=== PATIENT | female | born 1970 | race Caucasian/White ===

== ENCOUNTER 2020-01-04 10:12 | Inpatient (IN) | payer OTHER, SELFPAY ==
[2019-12-28 12:55] VITALS: BMI 33.1
[2020-01-04] VITALS (14 sets, daily range): BP systolic 121–172; BP diastolic 59–96; PULSE 53–78; RESP 7–23; TEMP 35.7–36.8; O2SAT 73–100; BMI 33.1
--- NOTE | 2020-01-04 | DI.RAD.S_ITS ---
PROCEDURE: XR LUMBAR SPINE 2-3V INDICATIONS: L5-S1 TLIF TECHNIQUE: 2 intraoperative views of the lumbar spine were acquired. COMPARISON: [facility], CT, CT CHEST ABDOMEN PELVIS WITH CONTRAST, 06/17/2019, 15:26. FINDINGS: Pedicle screws at L5-S1 with intervertebral body spacer. Hardware is in expected location. IMPRESSION: Intraoperative guidance for L5-S1 TLIF. Dictated by: Home Anderson M.D. on 01/04/2020 at 14:12 Approved by: Home Anderson M.D. on 01/04/2020 at 14:14
[2020-01-04] MEDS: LACTATED RINGERS 1,000 ML 42 ML IV ×2 (10:50→13:05)
[2020-01-04] MEDS: ACETAMINOPHEN 325 MG TABLET 975 MG PO (10:54)
[2020-01-04] MEDS: GABAPENTIN 300 MG CAPSULE PO (10:54)
--- NOTE | 2020-01-04 11:21 | PM.PREOP ---
Pre-operative Note COVID-19 COVID-19 status: Negative Result date/Date tested (Pos, Neg/Pending): 01/02/20 Interval Note History & Physical reviewed/Exam performed by Physician: Yes Changes to H&P: No
[2020-01-04] MEDS: CLINDAMYCIN 600 MG/50 ML PIGGYBACK 50 MG IV (11:52)
--- NOTE | 2020-01-04 12:16 | SUR.OPER ---
Prone on spine table, head in foam head support, padded chest and pelvic supports, gel pad at knees, lower legs supported by pillows; nipples, genitalia and toes free of pressure, arms secured on foam padded arm boards at <90 degrees abduction. Tape over blanket at thigh secured to table.
[2020-01-04] MEDS: BUPIVACAINE LIPOSOME 266 MG/20 ML VIAL INJ (12:37)
[2020-01-04] MEDS: BUPIVACAINE 0.25% W/ EPI 30 ML VIAL INJ (12:38)
[2020-01-04] MEDS: OXYCODONE IR 5 MG TABLET 10 MG PO ×4 (12:50→20:41)
--- NOTE | 2020-01-04 12:52 | SUR.OPER ---
GLASSES AND DENTURES IN LABELED BAG/CONTAINER TO PACU WITH PATIENT
--- NOTE | 2020-01-04 14:04 | PM.OP.1 ---
Operative Date/Time/Diagnoses Date of procedure: 01/04/20 Time of procedure: 12:04 Pre-op diagnosis: 1. L4-5, L5-S1 spinal stenosis 2. L4-5, L5-S1 spondylosis with radiculopathy Post-op diagnosis: same Procedure & Clinicians Procedure: 1. L5-S1 Postero-lateral and posterior interbody fusion 2. L5-S1 interbody cage placement. 3. L5-S1 decompressive laminectomy with bilateral facetecomies 4. L4-5 hemilaminectomy for decompression of lateral recess 5. L5-S1 Posterior segmental instrumentation 6. Meridian of bone marrow from iliac crest 7. Utilization of microsurgical technique and operating microscope Same procedure as scheduled: Yes Indications: Patient has been having chronic back pain and worsening lumbar radiculopathy. Patient failed multiple conservative management with worsening pain weakness and numbness in her lower extremity. Patient has been having difficulty performing activity of daily living. After discussing risks benefits of treatment options, patient elected proceed with surgery. Surgeon: Diana Denton Practice Performance Manager: Lyubov Hoover Click Yes if Unassisted: No Anesthesia Type: General Operative Notes Closure Type: primary Specimen(s): none sent Prosthetic devices, grafts, tissues, transplants, or devices: Globus revolve screws, Rise cage Estimated Blood Loss (mL): 50 Blood products transfused: none Procedure in detail: Patient was seen in the preoperative area. Risks and benefits of the surgery was discussed with the patient. Informed consent was obtained from the patient and placed in the chart. Surgical site was marked. Patient was taken to the operative room. General anesthesia was administered. Prophylactic antibiotic was given to the patient less than 30 min before the incision was made. Patient was placed into a prone position on the Triston table. Patient's back was then prepped and draped in the sterile fashion. Time-out was performed at this time. Using AP and lateral C-arm imaging the interval between L4-5 L5-S1 was identified and marked on patient's back. A 2 inch incision 2 in from midline was made on the left side first. The fascia was incised in line with skin incision. Globus MARS retractors was placed inside the incision and docked onto the L5 lamina. Using microsurgical technique and operating microscope, a L5 laminectomy and L5-S1 facetectomy was performed using a Kerrison rongeur. Patient was found have severe neural foramen stenosis and moderate central stenosis which was fully decompressed after the laminectomy and facetectomy was completed. The disc space at L5-S1 was identified. And a total diskectomy was performed at L5-S1 level. The endplates were decorticated using a rasp and shaver. The total diskectomy and decortication was performed at L5-S1 level in order to to accomplish a L5-S1 fusion. The local bone from the laminectomy and facetectomy was saved for local bone grafting. After the total diskectomy and decortication was completed, Trifecta bone graft material was combined with local bone that was harvested earlier. At this time, a separate skin is incision was made over the iliac crest. A Jamshidi needle was inserted into the iliac crest through a separate skin incision. 5 cc of bone marrow aspiration was obtained through the separate skin incision using a Jamshidi needle from the iliac crest. The bone marrow aspiration was combined with local bone and the trifecta bone grafting material. The bone grafting material was placed into the L5-S1 interbody space along with a expandable cage. The cage was expanded to its maximum height using the torque limiting screwdriver. At this time the MARS retractor was redirected over the L4 lamina. Using microsurgical technique and operating microscope, a L4-5 heminectomy was performed using the Kerrison rongeur. The ligamentum flavum was also resected at the side of the hemilaminectomy for further decompression of the epidural space. At this time a mirror image incision was made on the right side. The fascia was incised in line with the skin incision. Globus MARS retractor was inserted and docked onto the L5-S1 posterolateral gutter. Using the power drill, posterior-lateral decortication was performed at L5-S1 level until bleeding cortical bone was identified. The remaining bone grafting material was placed into the L5-S1 posterior lateral gutter he order to accomplish posterolateral fusion at the L5-S1 level. Using the double C-arm technique, pedicle screws were placed into the L4-L5 and S1 pedicles bilaterally. This was done by placing the Jamshidi needle into the pedicles, then placing the guidewires over the Jamshidi needle, and finally placing the cannulated screws over the guidewires bilaterally. After the pedicle screws were placed, 2 titanium rods was locked into the heads of the pedicle screws using locking caps and torque limiting screwdriver. After all the hardware was placed, and confirmed with AP and lateral C-arm imaging, the wound was then irrigated with sterile normal saline and packed with Ray-Jerman gauze for 3 min to accomplish hemostasis. After the gauze was removed the deep fascia was closed with #1 Vicryl suture. The subcutaneous layer was closed with 2-0 Vicryl. The skin was closed with skin levar. Patient tolerated the procedure well. There were no complications. Complications: none Post-operative Condition: stable Disposition: PACU Plan for aftercare: Admit to inpatient hospital
[2020-01-04] MEDS: fentaNYL 100 MCG/2 ML INJ IV ×4 (14:29→14:42)
[2020-01-04] MEDS: HYDROMORPHONE 2 MG INJ IV ×8 (14:31→15:06)
[2020-01-04] MEDS: HYDROMORPHONE 0.5 MG INJ (16:00)
[2020-01-04] MEDS: SODIUM CHLORIDE 0.9% 1,000 ML 100 ML IV (16:17)
[2020-01-04] MEDS: GABAPENTIN 400 MG CAPSULE 800 MG PO ×2 (16:52→20:50)
[2020-01-04] MEDS: ACETAMINOPHEN 325 MG TABLET 650 MG PO (16:54)
[2020-01-04] MEDS: HYDROMORPHONE 0.5 MG INJ IV (19:07)
[2020-01-04] MEDS: CLINDAMYCIN 900 MG/50 ML PIGGYBACK 50 MG IV (19:08)
[2020-01-04] MEDS: hydrOXYzine pamoate 25 MG CAPSULE PO (19:08)
[2020-01-04] MEDS: carisoprodoL 350 MG TABLET PO (20:08)
[2020-01-04] MEDS: TRAZODONE 100 MG TABLET 200 MG PO (20:50)
[2020-01-04] MEDS: LITHIUM 300 MG IR CAPSULE 600 MG PO (20:50)
[2020-01-04] MEDS: PANTOPRAZOLE 20 MG TABLET PO (20:51)
[2020-01-04] MEDS: diazePAM 5 MG TABLET PO (20:51)
[2020-01-04] MEDS: VERAPAMIL SR 180 MG TABLET PO (20:52)
--- NOTE | 2020-01-04 22:15 | PC.NURSE ---
pt having pain issues. medicated with soma around bedtime. pt also had scheduled valium and trazodone at bedtime, pharmacist verified that patient is ok to take all three meds around the same time as long as the meds are not new to her. dressing cdi. Pt is [id number] to the BS. cms+. pp++. IVF. voiding without difficulty. safety checks. call light in reach. bed alarm active.
[2020-01-04] MEDS: OXYCODONE ER 20 MG TAB PO (23:17)
[2020-01-05] VITALS (10 sets, daily range): BP systolic 103–152; BP diastolic 60–88; PULSE 45–72; RESP 16–19; TEMP 35.9–37.1; O2SAT 92–100
[2020-01-05] MEDS: HYDROMORPHONE 0.5 MG INJ IV ×6 (00:01→22:07)
--- NOTE | 2020-01-05 00:27 | PC.NURSE ---
Addendum entered by Lizbet Lamb R.N. 01/05/20 06:50: RA sat is 97%. States pain better this morning with severity of 5/10; medicated with scheduled Oxycodone ER. Addendum entered by Lizbet Lamb R.N. 01/05/20 04:41: O2 sat remains 98% on 0.5L/min so oxygen stopped. Patient is currently asleep. Addendum entered by Lizbet Lamb R.N. 01/05/20 01:49: Assisted to BSC and now pain has increased back to 8/10 so medicated with Oxycodone + Vistaril Addendum entered by Lizbet Lamb R.N. 01/05/20 01:22: Pain improved but states it is still 6/10 and 4/10 would be tolerable; medicated with Tylenol. Original Note: Patient is drowsy but oriented. Breath sounds CTA; oxygen at 1L/min per NC with sat of 98% so decreased oxygen to 0.5L/min. HRR but bradycardic with rate in 50's. Denies nausea. BT hypoactive; states she has passed some flatus since return from surgery. Voiding in large quantities; denies dysuria, frequency or urgency. Is able to turn self in bed. Up to BSC with 1 assist and pivots; needing cues. Dressing to back is CDI. States pain after being up to BSC has worsened and now is 8/10 so medicated with Dilaudid and ice pack applied. Has numbness in bilateral LE posteriorly from heel to mid calf; right > left. Also reports chronic tingling on sides of left leg to mid thigh. Is weak in LE left > right. Wearing bilateral calf SCD's. Fall risk score is high and bed alarm is activated.
[2020-01-05] MEDS: ACETAMINOPHEN 325 MG TABLET 650 MG PO ×4 (01:19→23:36)
[2020-01-05] MEDS: OXYCODONE IR 5 MG TABLET 10 MG PO ×6 (01:47→23:34)
[2020-01-05] MEDS: hydrOXYzine pamoate 25 MG CAPSULE PO ×5 (01:47→23:33)
[2020-01-05] MEDS: CLINDAMYCIN 900 MG/50 ML PIGGYBACK 50 MG IV (03:36)
[2020-01-05] MEDS: LEVOTHYROXINE 75 MCG TABLET PO (06:42)
[2020-01-05] MEDS: OXYCODONE ER 20 MG TAB PO ×3 (06:42→22:03)
[2020-01-05] MEDS: LEVOTHYROXINE 100 MCG TABLET PO (06:42)
[2020-01-05] MEDS: LITHIUM 300 MG IR CAPSULE PO (07:57)
[2020-01-05] MEDS: DOCUSATE 100 MG CAPSULE PO (07:57)
[2020-01-05] MEDS: GABAPENTIN 400 MG CAPSULE 800 MG PO ×3 (07:58→20:52)
[2020-01-05] MEDS: PANTOPRAZOLE 20 MG TABLET PO ×2 (07:58→20:52)
--- NOTE | 2020-01-05 08:21 | PM.PN.1 ---
Exam Vital Signs (past 8 hours): - 01/05/20 04:26 01/05/20 06:51 Temperature 96.7 F L Pulse Rate 45 L Respiratory Rate 16 Blood Pressure 103/60 Pulse Oximetry 98 97 Oxygen Delivery Method Nasal Cannula Oxygen Flow Rate 0 Assessment & Plan Assessment & Plan narrative: Patient is admitted after surgery. POD#1 s/p 1 level TLIF. Patient has been stable and progressing with physical therapy. Patient is neurovascularly intact on exam. Patient has no signs or symptoms of DVT. Patient's dressing is clean dry and intact. Pain control via oral meds. Discharge to home once cleared by PT/OT.
[2020-01-05] MEDS: BUDESONIDE 90mcg FLEXHALER (60 PUFF/DEVICE) INH (08:30)
[2020-01-05] MEDS: estradioL 1 MG TABLET PO (08:59)
[2020-01-05] MEDS: FLUTICASONE 120 SPRAY/16 GM SPRAY.SUSP NASAL (09:00)
[2020-01-05] MEDS: SODIUM CHLORIDE 0.9% FLUSH 10 ML IV ×3 (09:00→20:53)
--- NOTE | 2020-01-05 09:05 | PT.IIE ---
Current Diagnoses Other spondylosis with radiculopathy, lumbosacral region (01/04/20) Spinal stenosis, lumbar region without neurogenic claudication (01/04/20) Surgery Performed Operation Date: 01/04/20 11:45 Actual Procedures p L4-5 hemilaminectomy, L5-S1 TLIF w. posterior instrumentation - Diana Denton MD Surgical History (Last Updated 12/29/19 @ 14:55 by Alyssa Concepcion, RN) History of bladder surgery (Acute) History of (Acute) History of ear surgery (Acute) History of surgery (Acute) Hx of cervical spinal arthrodesis (Acute) Hx of cervical spinal arthrodesis (Acute) Hx of cholecystectomy (Acute) Hx of foot surgery (Acute) Hx of lithotripsy (Acute) Hx of shoulder surgery (Acute) Hx of sinus surgery (Acute) S/P complete hysterectomy (Acute) Medical History (Last Updated 12/29/19 @ 14:53 by Alyssa Concepcion RN) ADD (attention deficit disorder) (Acute) Ankylosing spondylitis (Acute) Anxiety (Acute) Arthritis (Acute) Asthma (Acute) Bipolar disorder (Acute) CKD (chronic kidney disease) (Acute) Collapsed lung (Acute ~2009) Depression (Acute) Edema (Acute) Fibromyalgia (Acute) Gastroparesis (Acute) GERD (gastroesophageal reflux disease) (Acute) Heartburn (Acute) Hiatal hernia (Acute) HTN (hypertension) (Acute) Hypothyroid (Acute) Jerky body movements (Acute) Kidney stones (Acute) Migraines (Acute) Nutcracker esophagus (Acute) Occipital bone fracture (Acute 06/17/19) Palpitations (Acute) Spinal stenosis (Acute) Spinal stenosis of lumbar region with radiculopathy (Acute) Syncopal episodes (Acute) Trauma (Acute 06/17/19) Physical Therapy Inpatient Evaluation/Re-Eval M1 PT/OT-IP Prior Functional Status Start: 01/05/20 11:42 Freq: NEEDED Status: Active Protocol: Document 01/05/20 09:05 AB (Rec: 01/05/20 12:01 AB [id number]) Medical Review Prior Functional Status Medical History Reviewed Yes Communication able to make needs known Mobility and Gait pt stated that she is modified independent with bed mobility , transfers and ambulation without AD but occasionally uses a SPC/4WW depending on level of pain Activities of Daily Living and IADL's stated that her friend or spouse assists her with showers Social History Household Members spouse Living Arrangements Mobile home Number of Floors (Floors) One Floor Number of Stairs To Enter/Railing? 4 steps with bilateral wide rails and can only hold on to 1 rail at a time +2 steps without rails; pt stated that she uses her SPC and spouse on the other to assist her Home Environment Standard Height Toilet,Walk in Shower Home Equipment Front Wheel Walker,Four Wheel Walker,Straight Cane,Shower Seat without Backrest,Hand Held Shower Additional Social History Comment pt has an adjustable bed withour rails stated that her spouse will be able to assist her for 2 days only as spouse has to go back to work. M2 PT-IP Current Condition Start: 01/05/20 11:42 Freq: NEEDED Status: Active Protocol: Document 01/05/20 09:05 AB (Rec: 01/05/20 12:01 [email or web address]) Physical Therapy Current Condition Current Condition Evaluation Date 01/05/20 Treatment Diagnosis s/p L5S1 postlat/post fusion/ lami; L4-5 hemilami; difficulty in walking Onset Date 01/04/20 Precautions Lumbar Precautions Log Roll,No Twisting,Limit Bending,Lifting Restriction of 10 lbs,Gait Belt above Incisional Area M3 PT-IP Subjective Start: 01/05/20 11:42 Freq: NEEDED Status: Active Protocol: Document 01/05/20 09:05 AB (Rec: 01/05/20 12:01 [email or web address]) Subjective Physical Therapy Visit Type Type Initial Evaluation Visit Start Time 09:02 Visit Stop Time 10:06 Total Visit Minutes 64 Number of TRANSIT PLANNING DIRECTOR Visits 0 Physical Therapy Visit Comments Patient Comments pt agreeable to do PT; pt seems drowsy and slow to answering questions and instructions Therapy Pain Assessment Pain When Pain Assessed At Rest Pain Present Pain Present Pain Reported Location Lower Back Intensity 6 Scale Used Numeric (0 - 10) Pain Management Techniques Apply Cold,Re-positioning, Timing of Activity with Medications M4 PT-IP Mobility and Gait Start: 01/05/20 11:42 Freq: NEEDED Status: Active Protocol: Document 01/05/20 09:05 AB (Rec: 01/05/20 12:01 [email or web address]) PT-Bed Mobility Assessment Rolling Type of Rolling Log Rolling Level of Assist Maximal Assistance,1 Person Assistance Supine to Sit Supine to Sit Maximum Assistance,1 Person Assistance Scooting Scooting to Edge of Bed Maximum Assistance PT-Transfer Assessment Sit to and From Stand Sit to and from Stand Maximum Assistance,1 Person Assistance,2 Person Assistance ,Use of Upper Extremities Equipment Transfer Assistive Device Gait Belt,Front Wheeled Walker Orthotic/Prosthetic Devices or Brace: No Transfers Transfer Destination Toilet Transfer Technique Stand Step Pivot Transfer Ability Level of Assist Maximum Assistance,2 Person Assistance,Use of Upper Extremities Comments Mobility Comments reviewed back precautions with pt. pt is drowsy and requires cues to keeps eyes open but willing to do PT. completed log roll bed mobility max A and max cues. pt required min A to maintain sitting on EOB. completed sit to stand from EOB max A and max cues. pt with (+) trunk/ LE tremors requiring max A to maintain standing balance using FWW. instructed pt to sit back. pt stated that she occasionally has tremors when she has pain. requested NAC to assist PT. pt requested to use the toilet. bedside commode positioned next to pt. pt completed sit to stand max A x 1-2 and max cues and completed step transfer using FWW max A x 2 and max cues. pt completed sit to stand max A x 1-2 from bedside commode. pt required max A x 1-2 to maintain standing using FWW while another NAC assisted with bried management. pt continues to have tremors affecting steadiness and LE control. switched bedside commode to recliner chair behind pt and pt sat on chair. positioned pt on chair. call light and table placed within reach. informed pt regarding mobility and d/c plans and recommendation of SNF rehab at this time. pt agreed. Gait Assessment Comments Gait Comments unable to ambulate at this time but able to take steps during transfers requiring max A x 2 and max cues using FWW. pt presents with (+) trunk/ LE tremors affecting steadiness and LE control during standing PT-Balance Assessment Sitting Balance and Reactions Static Sitting Balance Ability Fair Dynamic Sitting Balance Ability Poor Standing Balance and Reactions Static Standing Balance Ability Poor Dynamic Standing Balance Ability Poor Device Used FWW M5 PT-IP Objective Assessments Start: 01/05/20 11:42 Freq: NEEDED Status: Active Protocol: Document 01/05/20 09:05 AB (Rec: 01/05/20 12:01 AB [email or web address]) Orientation Orientation/Cognition Level of Alertness Alert Orientation Name,Place,Situation Safety Awareness Decreased Safety Awareness Memory Description Short Term Impaired Gross Range of Motion Lower Extremity ROM Assessment Within Functional Limits Strength Lower Extremity Strength Assessment Bilaterally Impaired Hip 3-/5 Knee 3+/5 Sensation Assessment Sensation Gross Sensation Right LE Impaired,Left LE Impaired Light Touch Impaired Proprioception (Position) Impaired Sensation Description Numbness,Tingling Comments Sensation Comments numbness/tingling on B feet M6 PT-IP Treatment Start: 01/05/20 11:42 Freq: NEEDED Status: Active Protocol: Document 01/05/20 09:05 AB (Rec: 01/05/20 12:01 [id number]) Physical Therapy Treatment Education Education Provided Precautions,Weight Bearing Status,Post-Op Packet,Safety M7 PT-IP Assessment and Plan Start: 01/05/20 11:42 Freq: NEEDED Status: Active Protocol: Document 01/05/20 09:05 AB (Rec: 01/05/20 12:01 [email or web address]) PT Summary Assessment and Plan Potential Rehabilitation Potential Good Status of Condition at Evaluation Evolving Summary Impairments Pain,ROM,Strength,Balance, Coordination,Sensation,Tone, Cognition,Bed Mobility, Transfers,Gait,Activity Tolerance Assessment Summary pt requirng max A x 2 for bed mobility and transfers and unable to ambulate at this time. pt presents wtih (+) trunk/LE tremors affecting mobility. pt requires SNF rehab at this time to improve strength and functional independence. Goals Bed Mobility Goal Minimal Assistance Transfer Goal Minimal Assistance,Front Wheeled Walker Gait Goal Minimal Assistance,Front Wheel Walker Gait Distance 50 Other Goals up/down 6 steps using SPC+CORE SHAPER SIDES min A Days to Meet Goals 5 Frequency of Treatment Frequency Of Treatment Twice a Day Treatment Plan Physical Therapy Treatment Plan Bed Mobility Training,Transfer Training,Gait Training, Therapeutic Exercise,Balance Retraining,Post Op Education, Discharge Planning,Hot or Cold Pack,Neuromuscular Re-ed, Coordination Retraining,Manual Therapy Other Recommendations and Next Treatment transfers, ambulation Focus Recommendations To Nursing Amount of Assist Needed 2 Person Assist Discharge Recommendations PT Discharge Recommendations SNF Rehab Transportation Needs at Discharge Wheelchair/Cabulance
--- NOTE | 2020-01-05 11:44 | OT.IP.EVAL ---
Current Diagnoses Other spondylosis with radiculopathy, lumbosacral region (01/04/20) Spinal stenosis, lumbar region without neurogenic claudication (01/04/20) Surgery Performed Operation Date: 01/04/20 11:45 Actual Procedures p L4-5 hemilaminectomy, L5-S1 TLIF w. posterior instrumentation - Diana Denton MD Past Medical History (Last Updated 12/29/19 @ 14:53 by Alyssa Concepcion, RN) ADD (attention deficit disorder) (Acute) Ankylosing spondylitis (Acute) Anxiety (Acute) Arthritis (Acute) Asthma (Acute) Bipolar disorder (Acute) CKD (chronic kidney disease) (Acute) Collapsed lung (Acute ~2009) Depression (Acute) Edema (Acute) Fibromyalgia (Acute) Gastroparesis (Acute) GERD (gastroesophageal reflux disease) (Acute) Heartburn (Acute) Hiatal hernia (Acute) HTN (hypertension) (Acute) Hypothyroid (Acute) Jerky body movements (Acute) Kidney stones (Acute) Migraines (Acute) Nutcracker esophagus (Acute) Occipital bone fracture (Acute 06/17/19) Palpitations (Acute) Spinal stenosis (Acute) Spinal stenosis of lumbar region with radiculopathy (Acute) Syncopal episodes (Acute) Trauma (Acute 06/17/19) Surgical History (Last Updated 12/29/19 @ 14:55 by Alyssa Concepcion, JODY) History of bladder surgery (Acute) History of (Acute) History of ear surgery (Acute) History of surgery (Acute) Hx of cervical spinal arthrodesis (Acute) Hx of cervical spinal arthrodesis (Acute) Hx of cholecystectomy (Acute) Hx of foot surgery (Acute) Hx of lithotripsy (Acute) Hx of shoulder surgery (Acute) Hx of sinus surgery (Acute) S/P complete hysterectomy (Acute) Occupational Therapy Inpatient Evaluation/Re-Eval M1 PT/OT-IP Prior Functional Status Start: 01/05/20 18:35 Freq: NEEDED Status: Active Protocol: Document 01/05/20 11:06 [facility] (Rec: 01/05/20 18:53 [facility] [id number]) Medical Review Prior Functional Status Medical History Reviewed Yes Communication able to make needs known Mobility and Gait pt stated that she is modified independent with bed mobility , transfers and ambulation without AD but occasionally uses a SPC/4WW depending on level of pain Activities of Daily Living and IADL's stated that her friend or spouse assists her with showers Prior Functional Level (Other details) Pt states has history of recent brain injury and has trouble with her memory. Social History Household Members spouse Living Arrangements Mobile home Number of Floors (Floors) One Floor Number of Stairs To Enter/Railing? 4 steps with bilateral wide rails and can only hold on to 1 rail at a time +2 steps without rails; pt stated that she uses her SPC and spouse on the other to assist her Home Environment Standard Height Toilet,Walk in Shower Home Equipment Front Wheel Walker,Four Wheel Walker,Straight Cane,Shower Seat without Backrest,Hand Held Shower Additional Social History Comment pt has an adjustable bed without rails stated that her spouse will be able to assist her for 2 days only as spouse has to go back to work. M2 OT-IP Current Condition Start: 01/05/20 18:35 Freq: Status: Active Protocol: Document 01/05/20 11:06 [facility] (Rec: 01/05/20 18:53 [facility] [id number]) Occupational Therapy Current Condition Current Condition Evaluation Date 01/05/20 Treatment Diagnosis L5-S1 TLIF, decreased mobilty and self care Diagnosis Onset Date 01/04/20 Post Operative Precautions Lumbar Precautions Log Roll,No Twisting,Limit Bending,Lifting Restriction of 10 lbs,Gait Belt above Incisional Area Weight Bearing Status Weight Bearing Status Weight Bear as Tolerated M3 OT- IP Subjective and Pain Start: 01/05/20 18:35 Freq: Status: Active Protocol: Document 01/05/20 11:06 [facility] (Rec: 01/05/20 18:53 [facility] [id number]) OT- Subjective Occupational Therapy Visit Type Type Initial Evaluation Visit Start Time 11:06 Visit Stop Time 11:44 Total Visit Minutes 38 Occupational Therapy Visit Comments Patient Comments Pt agreed to get up. Patient/Caregiver Goals Pt realizing may be best to go to skilled rehab pt's works form 7am-5pm daily and would have to be mostly independent for needs upon discharge. OT Pain Assessment Pain When Pain Assessed At Rest Pain Present Pain Present Denied Pain M4 OT- IP ADL's Start: 01/05/20 18:35 Freq: Status: Active Protocol: Document 01/05/20 11:06 [facility] (Rec: 01/05/20 18:53 [facility] [id number]) OT [id number]-[id number]-[id number] General Evaluation Self-Feeding Ability Independent OT ADL-Grooming Comments OT Grooming Comments Not performed. OT ADL-Dressing General Eval Lower Body Dressing Ability Maximum Assistance Areas Needing Assistance Socks Comments OT Dressing Comments Stated to educate pt on back precautions and needs for LB dressing equipment. OT ADL-Toileting Comments OT Toileting Comments Initiated education of back precautions for toileting and that pt may have to have assist or get a toielt paper aid to assist. OT ADL-Bathing Comments OT Bathing Comments Pt states prior would take her 1 hour to shower. In addition that her would have to assist her to rinse her hair and dry off. M5 OT- IP IADL's Start: 01/05/20 18:35 Freq: Status: Active Protocol: Document 01/05/20 11:06 [facility] (Rec: 01/05/20 18:53 [facility] [id number]) OT-Instrumental Activities of Daily Living Deficits IADL Deficits Identified Deficits Home Safety Awareness Awareness of Need for Assistance at Home Good Awareness Medication Management Medication Management Comments Pt states use of pill organizer. Money Management Money Management Caregiver Provides Assistance Meal Preparation Meal Preparation Caregiver Provides Assist It Sales Executive It Sales Executive Caregiver Provides Assist M6 OT- IP Functional Cognition Start: 01/05/20 18:35 Freq: Status: Active Protocol: Document 01/05/20 11:06 [facility] (Rec: 01/05/20 18:53 [facility] [id number]) Cognitive Factors Limiting Selfcare Function Cognitive Ability Level of Alertness Alert,Confusional State Patient Orientation Name,Place,Situation Attention Span Ability Capable of Focused Attention, Capable of Sustained Attention Ability to Follow Commands Able to Follow One Step Commands Memory Description Short Term Impaired Cognitive Comments Cognitive Assessment Comments Pt having difficulty to recall back precautions and needing repeat instructions during mobility needs. OT- Vision and Hearing OT- Hearing Assessment OT- Hearing Assessment WFL M7 OT- IP Mobility and Balance Start: 01/05/20 18:35 Freq: Status: Active Protocol: Document 01/05/20 11:06 [facility] (Rec: 01/05/20 18:53 [facility] [id number]) OT- Bed Mobility Assessment Rolling Type of Rolling Log Rolling,Roll to Right Level of Assistance Maximum Assistance,1 Person Assistance Supine to Sit Supine to Sit Assist Maximum Assistance,2 Person Assistance Scooting Scooting to Edge of Bed Maximum Assistance,1 Person Assistance OT-Transfer Assessment Sit to and From Stand Sit to and from Stand Maximum Assistance,2 Person Assistance Transfers Transfer Ability Maximum Assistance,2 Person Assistance Technique Transfer Destination Bed,Chair Devices Transfer Assistive Devices Gait Belt,Front Wheeled Walker Comments Mobility Comments Pt legs buckling while trying to stand and needing MAX X 2 to stand and transfer. Pt states prior to surgery having difficulty to stand. OT- Gait Assessment Comments Gait Ability Comments Transfer only. OT- Balance Assessment Sitting Balance and Reactions Static Sitting Balance Ability Good Dynamic Sitting Balance Ability Fair Standing Balance and Reactions Static Standing Balance Ability Poor Dynamic Standing Balance Ability Poor M9 OT- IP Assessment and Plan Start: 01/05/20 18:35 Freq: Status: Active Protocol: Document 01/05/20 11:06 [facility] (Rec: 01/05/20 18:53 [facility] [id number]) OT Summary Assessment and Plan Potential Rehabilitation Potential Good Analytic Complexity at Evaluation Moderate Summary OT Impairments Pain,Balance,Functional Cognition,Functional Mobility, Grooming,Dressing,Toileting, Bathing,Toilet Transfers, Shower Transfers,Activity Tolerance Progress Towards Goals Slow Progress due to Pain,Slow Progress due to Medical Issues,Slow Progress due to Activity Tolerance,Slow Progress due to Cognition Assessment Summary Pt MOD complexity due to recent fall and now needing extensive two person assist for bed mobility and transfer needs. Prior pt states took an extensive amount of time to complete basic ADl's and at this time since pt will not have assist at home as pt's works, would be best for pt to go to skilled rehab to continue to work on repetition of back precautions , safety awareness, and to help maximize her independence for ADl's and functional mobility needs. Goals Grooming Goal Independent Dressing Goal Independent Toileting Goal Independent Bathing Goal Independent Toilet Transfer Goal Independent Shower Transfer Goal Minimal Assistance Patient/Caregiver Education Goal Demonstrate Post-Op Precautions Days to Meet Goals 15 Frequency of Treatment Frequency Of Treatment Once a Day Treatment Plan OT Treatment Plan ADL Training,Functional Cognition Training,Functional Mobility,Patient/Family Education,Discharge Planning Other Treatment Recommendations and Next Transfer to [facility] with MODA x 2. Treatment Focus Practice LB dressing equipment with pt. Discharge Recommendations OT Discharge Recommendations SNF Rehab Home Equipment Needs Defer to SNF Transportation Needs at Discharge Wheelchair/Cabulance
[2020-01-05] MEDS: ONDANSETRON 4 MG/2 ML INJ IV (12:24)
--- NOTE | 2020-01-05 12:51 | CM.IDA ---
Addendum entered by LEOBARDO Pandey 01/05/20 14:17: [facility] can accept but auth will need to be secured through [employer]. Preethi at [facility] working on this today before long holiday w/e. RUSS Original Note: Initial DCP Assessment Note: Patient is a 49 yo female, resident of [place]. Patient is POD#1 from spinal surgery w/Dr Denton. PCP: Cesar Mackenzie Payer: [employer] Reviewed chart, met w/patient to explain role. OT Teresa had just finished her session w/patient and suggested a conversation about SNF options since patient was a Max assist today and spouse available only through Thursday. Patient is mostly indp at baseline, lives w/her spouse. 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 Patient hopes to DC to SNF and understands an authorization through [employer] would need to be secured. Patient requests to be in [facility] as a first choice, b/u would be closer to [place] ([facility] Placed call to [facility] and they are not taking admissions at this time. Placed call to Preethi at [facility], she will review and f/u. Holiday weekend is approaching (06 of January) hopefully SNF can begin auth request today (?) Following closely. LEOBARDO Pandey Discharge Planning/Care Management CM Discharge Assessment Start: 01/05/20 12:48 Freq: Status: Active Protocol: Document 01/05/20 12:48 RUSS (Rec: 01/05/20 12:51 [facility] [id number]) Discharge Planning Assessment Assigned [employer] LEOBARDO Nino DPOA/Assigned Designee Name Enrrique Aguilar, spouse Contact Information [phone] Advance Directives? Yes History Provided By Patient Prior Living Arrangements Mobile home Household Members spouse Independent with ADL's No: Decreased activity tolerance, chronic pain Is patient alert and oriented? Yes Patient/Family Preference [facility] Facility Barriers to Discharge Yes Comment Slow to recover, spouse works fulltime Discharge Plan [facility] Referrals Initiated [facility]
--- NOTE | 2020-01-05 13:28 | PT.IPTN ---
Current Diagnoses Other spondylosis with radiculopathy, lumbosacral region (01/04/20) Spinal stenosis, lumbar region without neurogenic claudication (01/04/20) Surgery Performed Operation Date: 01/04/20 11:45 Actual Procedures p L4-5 hemilaminectomy, L5-S1 TLIF w. posterior instrumentation - Diana Denton MD Physical Therapy Treatment Note M2 PT-IP Current Condition Start: 01/05/20 11:42 Freq: NEEDED Status: Active Protocol: Document 01/05/20 09:05 AB (Rec: 01/05/20 12:01 AB [id number]) Physical Therapy Current Condition Current Condition Evaluation Date 01/05/20 Treatment Diagnosis s/p L5S1 postlat/post fusion/ lami; L4-5 hemilami; difficulty in walking Onset Date 01/04/20 Precautions Lumbar Precautions Log Roll,No Twisting,Limit Bending,Lifting Restriction of 10 lbs,Gait Belt above Incisional Area M3 PT-IP Subjective Start: 01/05/20 11:42 Freq: NEEDED Status: Active Protocol: Document 01/05/20 13:28 AB (Rec: 01/05/20 16:00 AB [id number]) Subjective Physical Therapy Visit Type Type Treatment Note Visit Start Time 13:28 Visit Stop Time 13:51 Total Visit Minutes 23 Number of CHIEF DISPATCHER SERVICE Visits 0 Physical Therapy Visit Comments Patient Comments pt agreeable to do PT Therapy Pain Assessment Pain When Pain Assessed At Rest Pain Present Pain Present Pain Reported Location Lower Back Intensity 6 Scale Used Numeric (0 - 10) Pain Management Techniques Re-positioning,Timing of Activity with Medications M4 PT-IP Mobility and Gait Start: 01/05/20 11:42 Freq: NEEDED Status: Active Protocol: Document 01/05/20 13:28 AB (Rec: 01/05/20 16:00 AB [id number]) PT-Bed Mobility Assessment Rolling Type of Rolling Log Rolling Level of Assist Maximal Assistance,1 Person Assistance,2 Person Assistance Sit to Supine Sit to Supine Maximum Assistance,2 Person Assistance Scooting Scooting to Edge of Bed Maximum Assistance Scooting Up and Down in Bed Maximum Assistance PT-Transfer Assessment Sit to and From Stand Sit to and from Stand Maximum Assistance,1 Person Assistance,2 Person Assistance ,Use of Upper Extremities Equipment Transfer Assistive Device Gait Belt,Front Wheeled Walker Orthotic/Prosthetic Devices or Brace: No Transfers Transfer Destination Bed Transfer Ability Level of Assist Maximum Assistance,2 Person Assistance,Use of Upper Extremities Comments Mobility Comments Nurse in room with pt. pt sitting on bedside commode. completed sit to stand max A x 1-2 and max cues and assisted with brief management. pt continues to have (+) tremors. pt ambulated ~ 6 ft towards the bed max A x 1-2 using FWW and cues but has to sit down midway. completed sit to stand max A x 1-2 and max cues and attempted to ambulate more but unable and presents with increase tremors/shaking with increase knee bending and pt unable to control. instructed pt to sit down. pt completed sit to stand again max A x1-2 and maintain standing max A while nurse assisted with switching chairs behind pt. positioned chair closer to bed and pt completed step transfer using FWW max A x 2 and max cues. completed bed mobility sit to supine max A x 2 and max cues. positioned pt in bed. call light and table placed within reach. Gait Assessment Gait Gait Assistance Required: Maximum Assistance,1 Person Assist,2 Person Assist Distance (Feet) 6 Able to Maintain Weight Bearing Status Yes During Gait Assistive Devices Assistive Device Gait Belt,Front Wheeled Walker Orthotic/Prosthetic Devices or Brace: No Gait Deviations General Gait Pattern Antalgic,Decreased Stride Length,Decreased Feet Clearance Factors Limiting Gait Function Factors Limiting Gait Function Decreased Activity Tolerance, Decreased Strength,Difficulty Following Directions,Limited Range of Motion,Pain,Poor Balance,Poor Safety Awareness Comments Gait Comments pls refer to mobility section for details M5 PT-IP Objective Assessments Start: 01/05/20 11:42 Freq: NEEDED Status: Active Protocol: Document 01/05/20 09:05 AB (Rec: 01/05/20 12:01 AB [id number]) Orientation Orientation/Cognition Level of Alertness Alert Orientation Name,Place,Situation Safety Awareness Decreased Safety Awareness Memory Description Short Term Impaired Gross Range of Motion Lower Extremity ROM Assessment Within Functional Limits Strength Lower Extremity Strength Assessment Bilaterally Impaired Hip 3-/5 Knee 3+/5 Sensation Assessment Sensation Gross Sensation Right LE Impaired,Left LE Impaired Light Touch Impaired Proprioception (Position) Impaired Sensation Description Numbness,Tingling Comments Sensation Comments numbness/tingling on B feet M6 PT-IP Treatment Start: 01/05/20 11:42 Freq: NEEDED Status: Active Protocol: Document 01/05/20 13:28 AB (Rec: 01/05/20 16:00 AB [id number]) Physical Therapy Treatment Education Education Provided Precautions,Safety M7 PT-IP Assessment and Plan Start: 01/05/20 11:42 Freq: NEEDED Status: Active Protocol: Document 01/05/20 13:28 (Rec: 01/05/20 16:00 AB [id number]) PT Summary Assessment and Plan Potential Rehabilitation Potential Fair Summary Impairments Pain,ROM,Strength,Balance, Coordination,Sensation,Tone, Cognition,Bed Mobility, Transfers,Gait,Activity Tolerance Progress Towards Goals Slow Progress due to Pain,Slow Progress due to Medical Issues,Slow Progress due to Activity Tolerance Assessment Summary pt continues to require max A x 2 with all mobility and unable to tolerate much with c /o increase pain and presents with (+) tremors/shaking affecting mobility. pt will require SNF rehab to improve strength and functional independence. Goals Bed Mobility Goal Minimal Assistance Transfer Goal Minimal Assistance,Front Wheeled Walker Gait Goal Minimal Assistance,Front Wheel Walker Gait Distance 50 Other Goals up/down 6 steps using SPC+PLATER BARREL min A Days to Meet Goals 5 Frequency of Treatment Frequency Of Treatment Twice a Day Treatment Plan Physical Therapy Treatment Plan Bed Mobility Training,Transfer Training,Gait Training, Therapeutic Exercise,Balance Retraining,Post Op Education, Discharge Planning,Hot or Cold Pack,Neuromuscular Re-ed, Coordination Retraining,Manual Therapy Other Recommendations and Next Treatment transfers, ambulation Focus Recommendations To Nursing Amount of Assist Needed 2 Person Assist Discharge Recommendations PT Discharge Recommendations SNF Rehab Transportation Needs at Discharge Wheelchair/Cabulance
[2020-01-05] MEDS: MAGNESIUM HYDROXIDE 30 ML UDC PO (20:51)
[2020-01-05] MEDS: LITHIUM 300 MG IR CAPSULE 600 MG PO (20:52)
[2020-01-05] MEDS: diazePAM 5 MG TABLET PO (20:52)
[2020-01-05] MEDS: TRAZODONE 100 MG TABLET 200 MG PO (20:52)
[2020-01-05] MEDS: VERAPAMIL SR 180 MG TABLET PO (20:52)
--- NOTE | 2020-01-06 01:06 | PC.NURSE ---
Addendum entered by Lizbet Lamb R.N. 01/06/20 05:33: Slept most of night. States pain is 7/10 this morning after being up to BSC; medicated with Oxycodone ER + Tylenol + Vistaril per patient request Addendum entered by Lizbet Lamb R.N. 01/06/20 01:18: After being up to bathroom states pain is back to 8/10 and now needing IV Dilaudid; medicated as requested. Original Note: Patient seen and assessed at 2345. Is oriented but seems drowsy and has flat affect. Breath sounds CTA with RA sat of 97%. HRR with rate of 56 apically. BP elevated at 152/88 but is having 7/10 back pain. Complains of slight nausea but no heaving/emesis; provided gingerale per her request. BT are hypoactive but states she has passed flatus. Has not had BM since 01/01 and was given MOM on previous shift. Voiding with dysuria, frequency or urgency. Is slow in movements but able to turn self in bed and gets up to BSC with walker and 1 assist. Becomes very tremory with transfers but when instructed to focus on her breathing during movement tremors did go away. Dressing to back is CDI. Has some chronic tingling/numbness along medial aspect of left leg. Wearing bilateral calf SCD's. Medicated for 7/10 pain with Oxycodone + Tylenol + Vistaril. Fall risk score is high and bed alarm is activated.
[2020-01-06] MEDS: SODIUM CHLORIDE 0.9% FLUSH 10 ML IV ×3 (01:15→21:35)
[2020-01-06] MEDS: HYDROMORPHONE 0.5 MG INJ IV (01:15)
[2020-01-06] MEDS: hydrOXYzine pamoate 25 MG CAPSULE PO ×4 (05:28→16:52)
[2020-01-06] MEDS: ACETAMINOPHEN 325 MG TABLET 650 MG PO (05:29)
[2020-01-06] MEDS: OXYCODONE ER 20 MG TAB PO ×3 (05:29→21:34)
[2020-01-06 05:30] VITALS: BP 122/77; PULSE 69; RESP 16; TEMP 36.1; O2SAT 99
[2020-01-06] MEDS: LEVOTHYROXINE 100 MCG TABLET PO (05:36)
[2020-01-06] MEDS: LEVOTHYROXINE 75 MCG TABLET PO (05:36)
--- NOTE | 2020-01-06 07:50 | P.DS_ITS ---
History of Present Illness History of Present Illness Date Patient Seen: 01/06/20 Time Patient Seen: 07:50 Chief complaint: Translaminar Interbody Fusion/Laminotomy Narrative: Status post 1 level TLIF L5-s1. History chronic back pain on pain contract. Endorses back pain this failed conservative treatment. Admitted to the hospital postop. Pain is controlled with her pain medications. Discharge Providers Provider Date of admission: 01/04/20 10:12 Discharge Date: 01/06/20 Consults: 01/04/20 15:51 Consult to Occupational Therapy Evaluate & Treat Comment: Physician Instructions: Evaluate and treat Consult to Physical Therapy Evaluate & Treat Comment: Physician Instructions: Evaluate and Treat Discharge provider: Samantha Blake MD Summary Hospital Course Discharge Diagnosis: Spondylosis lumbar radiculopathy Hospital Course: Patient was admitted to the floor postop. She had an L4-[address] Denton. She has baseline chronic pain is on a pain management contract. Medications on the floor were OxyContin 20 mg b.i.d. oxycodone 5-10 mg q.4 hours as needed pain. She also takes Valium at night. And gabapentin. Postop day 2 IV breakthrough pain medications were discontinued. The patient worked with Physical therapy occupational therapy was felt to benefit from long-term placement. She was slow to mobilize. The time of discharge patient had tolerated p.o. medications and an oral diet. Status at Discharge Cognitive/behavioral status at discharge: oriented Functional status at discharge: uses cane/walker Overall status at discharge: patient is progressing back to baseline Time Spent with Patient Time spent: Less than 30 minutes Exam Vital Signs (past 8 hours): - 01/06/20 05:30 Temperature 96.9 F L Pulse Rate 69 Respiratory Rate 16 Blood Pressure 122/77 Pulse Oximetry 99 Oxygen Delivery Method Room Air Oxygen Flow Rate 0 Narrative Exam Narrative: Alert oriented female no acute distress. Lies in bed. Slow to mobilize. Endorses back pain HEENT exam normocephalic atraumatic Respiratory exam unlabored on room air CV exam regular rate and rhythm Musculoskeletal exam spinal exam. Dressing clean dry and intact. Weakly will wiggles feet but on further review is able to roll herself to her side and demonstrate hip flexion and knee flexion extension during this process. SCDs on bilateral lower extremities. No evidence of DVT. Discharge Plan Discharge Plan [facility] & Medications Prescriptions: New hydroxyzine pamoate 25 mg Capsule 25 mg PO Q4HR PRN (Reason: Nausea And Vomiting) Qty: 60 RF: 0 acetaminophen 325 mg Tablet 650 mg PO Q6HR PRN (Reason: Pain, Mild (1-3)) Qty: 40 RF: 0 docusate sodium [DOK] 100 mg Capsule 100 mg PO BID Qty: 30 RF: 0 oxycodone [OxyContin] 20 mg Tablet,Oral Only,Ext.Rel.12 Hr 20 mg PO Q8HR Qty: 40 RF: 0 oxycodone 5 mg tablet 5 - 15 mg PO Q4H PRN (Reason: pain) Qty: 50 RF: 0 Continued carisoprodol 350 mg Tablet 350 mg PO DAILY PRN (Reason: Muscle spasms) RF: 0 albuterol sulfate 2.5 mg /3 mL (0.083 %) Solution For Nebulization 2.5 mg INHALATION Q4-6H PRN (Reason: Shortness Of Breath) RF: 0 methylphenidate HCl 20 mg Tablet 20 mg PO QAM RF: 0 gabapentin 400 mg Capsule 800 mg PO TID RF: 0 verapamil 180 mg Tablet Extended Release 180 mg PO BEDTIME RF: 0 triamcinolone acetonide 0.5 % Ointment 1 applic TOPICAL BID PRN (Reason: Rash on nose) RF: 0 ondansetron 8 mg Tablet,Disintegrating 8 mg PO Q12H PRN (Reason: Nausea) RF: 0 estradiol 1 mg Tablet 1 mg PO DAILY RF: 0 trazodone 100 mg Tablet 200 mg PO BEDTIME RF: 0 meclizine 25 mg Tablet 25 mg PO TID PRN (Reason: Dizziness) RF: 0 lithium carbonate 300 mg Capsule 300 mg PO SEEINSTR RF: 0 promethazine 25 mg Tablet 25 mg PO Q4-6H PRN (Reason: Nausea) RF: 0 nitroglycerin 0.4 mg Tablet, Sublingual 0.4 mg SUBLINGUAL Q5-15M PRN (Reason: Chest Pain) RF: 0 furosemide 20 mg Tablet 20 mg PO QAM RF: 0 albuterol sulfate 90 mcg/actuation Hfa Aerosol Inhaler 1 - 2 inh INHALATION QID PRN (Reason: Shortness Of Breath) RF: 0 fluticasone propionate 50 mcg/actuation [place],Suspension 2 spray INTRANASAL DAILY RF: 0 diazepam 5 mg Tablet 5 mg PO BEDTIME RF: 0 Pulmicort Flexhaler 90 mcg/actuation Aerosol Powdr Breath Activated 2 inh INHALATION QAM RF: 0 diclofenac sodium 1 % Gel 2 g TOPICAL QID PRN (Reason: Pain) RF: 0 omeprazole 20 mg Tablet,Delayed Release (Dr/Ec) 20 mg PO BID RF: 0 levothyroxine 175 mcg Capsule 175 mcg PO DAILY RF: 0 [place] Autoinjector 225 mg/1.5 mL Auto-Injector 225 mg SUBCUT QMONTH RF: 0 dronabinol [Marinol] 5 mg Capsule 5 mg PO BID PRN (Reason: Headaches) RF: 0 Diet/Activity/Treatments Diet: Diet as Tolerated and Regular Activity: Limit bending twisting and lifting Skin/Wound/Dressing Care Report to your healthcare provider any signs of infection, such as:: chills, fever, night sweats, increased pain, unusual drainage and unusual redness Dressing: Keep dressing clean dry intact May shower with dressing covered Visit Report/Discharge Packet Instructions: DI for Transforaminal Lumbar Interbody Fusion Stand Alone Forms: Surgery Discharge Visit Report Forms: Patient Portal/API, Stroke Signs & Symptoms Quality VTE Deep Vein Thrombosis/Pulmonary Embolism Present on Admission: No
[2020-01-06 08:10] VITALS: PULSE 65; RESP 18
[2020-01-06] MEDS: BUDESONIDE 90mcg FLEXHALER (60 PUFF/DEVICE) INH (08:10)
--- NOTE | 2020-01-06 09:10 | PT.IPTN ---
Current Diagnoses Other spondylosis with radiculopathy, lumbosacral region (01/04/20) Spinal stenosis, lumbar region without neurogenic claudication (01/04/20) Surgery Performed Operation Date: 01/04/20 11:45 Actual Procedures p L4-5 hemilaminectomy, L5-S1 TLIF w. posterior instrumentation - Diana Denton MD Physical Therapy Treatment Note M2 PT-IP Current Condition Start: 01/05/20 11:42 Freq: NEEDED Status: Active Protocol: Document 01/05/20 09:05 AB (Rec: 01/05/20 12:01 AB [email or web address]) Physical Therapy Current Condition Current Condition Evaluation Date 01/05/20 Treatment Diagnosis s/p L5S1 postlat/post fusion/ lami; L4-5 hemilami; difficulty in walking Onset Date 01/04/20 Precautions Lumbar Precautions Log Roll,No Twisting,Limit Bending,Lifting Restriction of 10 lbs,Gait Belt above Incisional Area M3 PT-IP Subjective Start: 01/05/20 11:42 Freq: NEEDED Status: Active Protocol: Document 01/06/20 09:10 AB (Rec: 01/06/20 11:14 AB [id number]) Subjective Physical Therapy Visit Type Type Treatment Note Visit Start Time 09:10 Visit Stop Time 09:41 Total Visit Minutes 31 Number of RESP THER Visits 0 Physical Therapy Visit Comments Patient Comments pt is agreeable to do PT Therapy Pain Assessment Pain When Pain Assessed At Rest Pain Present Pain Present Pain Reported Location Lower Back Intensity 7 Scale Used Numeric (0 - 10) Pain Management Techniques Re-positioning,Timing of Activity with Medications M4 PT-IP Mobility and Gait Start: 01/05/20 11:42 Freq: NEEDED Status: Active Protocol: Document 01/06/20 09:10 AB (Rec: 01/06/20 11:14 AB [id number]) PT-Bed Mobility Assessment Rolling Type of Rolling Log Rolling Level of Assist Maximal Assistance Supine to Sit Supine to Sit Maximum Assistance,1 Person Assistance,Bedrails Scooting Scooting to Edge of Bed Maximum Assistance PT-Transfer Assessment Sit to and From Stand Sit to and from Stand Moderate Assistance,Maximum Assistance,1 Person Assistance ,Use of Upper Extremities Equipment Transfer Assistive Device Gait Belt,Front Wheeled Walker Orthotic/Prosthetic Devices or Brace: No Transfers Transfer Destination Chair Transfer Technique ambulated using FWW Transfer Ability Level of Assist Moderate Assistance,1 Person Assistance,Use of Upper Extremities Comments Mobility Comments pt completed log roll bed mobility supine to sit using bedrail max A and max cues. pt was able to sit on EOB CGA. completed sit to stand from EOB mod to max A and max cues. pt ambulated in room ~ 12 ft using FWW mod A and cues. presents with very slow calista. c/o increase pain and tiredness after ambulation . pt agreed to sit up on chair. positioned on chair. call light and table placed within reach. Gait Assessment Gait Gait Assistance Required: Moderate Assistance,1 Person Assist Distance (Feet) 12 Able to Maintain Weight Bearing Status Yes During Gait Assistive Devices Assistive Device Gait Belt,Front Wheeled Walker Orthotic/Prosthetic Devices or Brace: No Gait Deviations General Gait Pattern Antalgic,Decreased Stride Length,Decreased Feet Clearance,Flexed Trunk,Step-to Gait Factors Limiting Gait Function Factors Limiting Gait Function Decreased Activity Tolerance, Decreased Strength,Limited Range of Motion,Pain,Poor Balance,Poor Safety Awareness Comments Gait Comments pt presents with very slow calista, increase trunk flexion and decrease LE elevation during ambulation. M5 PT-IP Objective Assessments Start: 01/05/20 11:42 Freq: NEEDED Status: Active Protocol: Document 01/05/20 09:05 AB (Rec: 01/05/20 12:01 AB [email or web address]) Orientation Orientation/Cognition Level of Alertness Alert Orientation Name,Place,Situation Safety Awareness Decreased Safety Awareness Memory Description Short Term Impaired Gross Range of Motion Lower Extremity ROM Assessment Within Functional Limits Strength Lower Extremity Strength Assessment Bilaterally Impaired Hip 3-/5 Knee 3+/5 Sensation Assessment Sensation Gross Sensation Right LE Impaired,Left LE Impaired Light Touch Impaired Proprioception (Position) Impaired Sensation Description Numbness,Tingling Comments Sensation Comments numbness/tingling on B feet M6 PT-IP Treatment Start: 01/05/20 11:42 Freq: NEEDED Status: Active Protocol: Document 01/06/20 09:10 AB (Rec: 01/06/20 11:14 AB [id number]) Physical Therapy Treatment Education Education Provided Precautions,Safety M7 PT-IP Assessment and Plan Start: 01/05/20 11:42 Freq: NEEDED Status: Active Protocol: Document 01/06/20 09:10 AB (Rec: 01/06/20 11:14 AB [id number]) PT Summary Assessment and Plan Potential Rehabilitation Potential Fair Summary Impairments Pain,ROM,Strength,Balance, Coordination,Sensation,Tone, Cognition,Bed Mobility, Transfers,Gait,Activity Tolerance Progress Towards Goals Slow Progress due to Pain,Slow Progress due to Medical Issues Assessment Summary pt is progressing slowly but continues to require mod to max A for mobility. pt unable to tolerate much ambulation with c/o increase back pain and fatigue after 12 ft of walking. pt will require 24/7 assist at this time and will require SNF rehab to improve strength and mobility. Goals Bed Mobility Goal Minimal Assistance Transfer Goal Minimal Assistance,Front Wheeled Walker Gait Goal Minimal Assistance,Front Wheel Walker Gait Distance 50 Other Goals up/down 6 steps using SPC+TRUSS DESIGNER min A Days to Meet Goals 5 Frequency of Treatment Frequency Of Treatment Twice a Day Treatment Plan Physical Therapy Treatment Plan Bed Mobility Training,Transfer Training,Gait Training, Therapeutic Exercise,Balance Retraining,Post Op Education, Discharge Planning,Hot or Cold Pack,Neuromuscular Re-ed, Coordination Retraining,Manual Therapy Other Recommendations and Next Treatment transfers, ambulation Focus Recommendations To Nursing Amount of Assist Needed 2 Person Assist Discharge Recommendations PT Discharge Recommendations SNF Rehab Transportation Needs at Discharge Wheelchair/Cabulance
[2020-01-06] MEDS: LITHIUM 300 MG IR CAPSULE PO (09:42)
[2020-01-06] MEDS: DOCUSATE 100 MG CAPSULE PO ×2 (09:42→21:34)
[2020-01-06] MEDS: OXYCODONE IR 5 MG TABLET 10 MG PO ×4 (09:42→21:34)
[2020-01-06] MEDS: estradioL 1 MG TABLET PO (09:42)
[2020-01-06] MEDS: FUROSEMIDE 20 MG TABLET PO (09:42)
[2020-01-06] MEDS: PANTOPRAZOLE 20 MG TABLET PO ×2 (09:42→21:34)
[2020-01-06] MEDS: GABAPENTIN 400 MG CAPSULE 800 MG PO ×3 (09:42→21:35)
[2020-01-06] MEDS: FLUTICASONE 120 SPRAY/16 GM SPRAY.SUSP NASAL (09:46)
[2020-01-06 09:50] VITALS: BP 114/77; PULSE 72; RESP 18; TEMP 36.9; O2SAT 96
[2020-01-06 12:56] VITALS: BP 139/76; PULSE 71; RESP 15; TEMP 37.6; O2SAT 100
[2020-01-06] MEDS: MAGNESIUM HYDROXIDE 30 ML UDC PO (13:17)
--- NOTE | 2020-01-06 13:45 | PC.NURSE ---
Day shift note: Patient without a BM since 01/02/20, discussed PRN options for BM management, including Enema and PRs. Given MOM this shift, patient will consider if no outcome.
--- NOTE | 2020-01-06 14:04 | PT.IPTN ---
Current Diagnoses Other spondylosis with radiculopathy, lumbosacral region (01/04/20) Spinal stenosis, lumbar region without neurogenic claudication (01/04/20) Surgery Performed Operation Date: 01/04/20 11:45 Actual Procedures p L4-5 hemilaminectomy, L5-S1 TLIF w. posterior instrumentation - Diana Denton MD Physical Therapy Treatment Note M2 PT-IP Current Condition Start: 01/05/20 11:42 Freq: NEEDED Status: Active Protocol: Document 01/05/20 09:05 AB (Rec: 01/05/20 12:01 AB [email or web address]) Physical Therapy Current Condition Current Condition Evaluation Date 01/05/20 Treatment Diagnosis s/p L5S1 postlat/post fusion/ lami; L4-5 hemilami; difficulty in walking Onset Date 01/04/20 Precautions Lumbar Precautions Log Roll,No Twisting,Limit Bending,Lifting Restriction of 10 lbs,Gait Belt above Incisional Area M3 PT-IP Subjective Start: 01/05/20 11:42 Freq: NEEDED Status: Active Protocol: Document 01/06/20 14:04 AB (Rec: 01/06/20 15:01 AB [id number]) Subjective Physical Therapy Visit Type Type Treatment Note Visit Start Time 14:04 Visit Stop Time 14:45 Total Visit Minutes 41 Number of PROCUREMENT COST COORDINATOR Visits 0 Therapy Pain Assessment Pain When Pain Assessed At Rest Pain Present Pain Present Pain Reported Location Lower Back Intensity 7 Scale Used Numeric (0 - 10) Pain Management Techniques Distraction,Re-positioning, Timing of Activity with Medications M4 PT-IP Mobility and Gait Start: 01/05/20 11:42 Freq: NEEDED Status: Active Protocol: Document 01/06/20 14:04 AB (Rec: 01/06/20 15:01 AB [id number]) PT-Bed Mobility Assessment Rolling Type of Rolling Log Rolling Level of Assist Maximal Assistance Supine to Sit Supine to Sit Maximum Assistance,1 Person Assistance Sit to Supine Sit to Supine Maximum Assistance,2 Person Assistance Scooting Scooting to Edge of Bed Maximum Assistance PT-Transfer Assessment Sit to and From Stand Sit to and from Stand Moderate Assistance,1 Person Assistance,Use of Upper Extremities Equipment Transfer Assistive Device Gait Belt,Front Wheeled Walker Orthotic/Prosthetic Devices or Brace: No Transfers Transfer Destination Toilet Transfer Technique ambulated using FWW Transfer Ability Level of Assist Moderate Assistance,Use of Upper Extremities Comments Mobility Comments completed log roll supine to sit requiring max A and max cues. c/o increase pain and pt started shivering stated that she is cold and shivers when she has a lot of pain. pt requires increase time to complete all tasks. BP: 137/ 78. pt requested to use the toilet. completed sit to stand mod A and cues. ambulated to the toilet using FWW mod A and cues. pt was able to maintain standing using grab bar for support while assisted with brief management. pt completed sit to stand from the toilet mod to max A using grab bar. ambulated back to the bed using FWW mod A. pt prefers to go back in bed and stated that her back pain increases with sitting on the chair. pt completes sit to supine max A x 2 and max cues. positioned on the the bed. Left pt with OT. Gait Assessment Gait Gait Assistance Required: Moderate Assistance Distance (Feet) 10 Able to Maintain Weight Bearing Status Yes During Gait Assistive Devices Assistive Device Gait Belt,Front Wheeled Walker Orthotic/Prosthetic Devices or Brace: No Gait Deviations General Gait Pattern Antalgic,Decreased Stride Length,Decreased Feet Clearance,Flexed Trunk,Step-to Gait Factors Limiting Gait Function Factors Limiting Gait Function Decreased Activity Tolerance, Decreased Strength,Difficulty Following Directions,Limited Range of Motion,Pain,Poor Balance,Poor Safety Awareness Comments Gait Comments pls refer to mobility section for details M5 PT-IP Objective Assessments Start: 01/05/20 11:42 Freq: NEEDED Status: Active Protocol: Document 01/05/20 09:05 AB (Rec: 01/05/20 12:01 [email or web address]) Orientation Orientation/Cognition Level of Alertness Alert Orientation Name,Place,Situation Safety Awareness Decreased Safety Awareness Memory Description Short Term Impaired Gross Range of Motion Lower Extremity ROM Assessment Within Functional Limits Strength Lower Extremity Strength Assessment Bilaterally Impaired Hip 3-/5 Knee 3+/5 Sensation Assessment Sensation Gross Sensation Right LE Impaired,Left LE Impaired Light Touch Impaired Proprioception (Position) Impaired Sensation Description Numbness,Tingling Comments Sensation Comments numbness/tingling on B feet M6 PT-IP Treatment Start: 01/05/20 11:42 Freq: NEEDED Status: Active Protocol: Document 01/06/20 14:04 AB (Rec: 01/06/20 15:01 AB [id number]) Physical Therapy Treatment Education Education Provided Precautions,Safety M7 PT-IP Assessment and Plan Start: 01/05/20 11:42 Freq: NEEDED Status: Active Protocol: Document 01/06/20 14:04 (Rec: 01/06/20 15:01 [id number]) PT Summary Assessment and Plan Potential Rehabilitation Potential Fair Summary Impairments Pain,ROM,Strength,Balance, Coordination,Sensation,Tone, Cognition,Bed Mobility, Transfers,Gait,Activity Tolerance Progress Towards Goals Slow Progress due to Pain,Slow Progress due to Medical Issues Assessment Summary pt continues to c/o increase pain affecting mobility and requires mod A with ambulation and max A x 1-2 for bed mobility. pt unable to tolerate much activity with increase in pain during mobility. pt also requires increase time to complete all tasks and is very slow with movement. pt will need SNF rehab to improve strength and functional independence. Goals Bed Mobility Goal Minimal Assistance Transfer Goal Minimal Assistance,Front Wheeled Walker Gait Goal Minimal Assistance,Front Wheel Walker Gait Distance 50 Other Goals up/down 6 steps using SPC+JOURNEYMAN PAINTER min A Days to Meet Goals 5 Frequency of Treatment Frequency Of Treatment Twice a Day Treatment Plan Physical Therapy Treatment Plan Bed Mobility Training,Transfer Training,Gait Training, Therapeutic Exercise,Balance Retraining,Post Op Education, Discharge Planning,Hot or Cold Pack,Neuromuscular Re-ed, Coordination Retraining,Manual Therapy Other Recommendations and Next Treatment transfers, ambulation Focus Recommendations To Nursing Amount of Assist Needed 2 Person Assist Discharge Recommendations PT Discharge Recommendations SNF Rehab Transportation Needs at Discharge Wheelchair/Cabulance
--- NOTE | 2020-01-06 14:09 | CM.DPNOTE ---
DCP Cont Spoke w/[facility] at [facility]; [facility] has not authorized the SNF stay and are now closed until Thursday (january holiday weekend), [facility] will hold this referral until Thursday in the case that patient has not progressed enough for return home. Met w/patient this morning to update, patient remains fairly groggy and lethargic. Updated on above and suggested that if patient is not safe enough to DC over the w/e w/spouse (spouse has to return to work Thursday) SNF option may need to be revisited Thursday AM when [facility] opens again. Asked patient to plan in case she does return home, possibly w HH (?) and needs assist during the day....patient states her mom lives in [place] but they have a friend that can drive to pick her up and drive back to [place] to assist patient. Patient somewhat hard to understand today because she remains lethargic and trails off. Will attempt to contact Spouse Thursday to review DCP. LEOBARDO Pandey
--- NOTE | 2020-01-06 14:48 | OT.IP.TRT ---
Current Diagnoses Other spondylosis with radiculopathy, lumbosacral region (01/04/20) Spinal stenosis, lumbar region without neurogenic claudication (01/04/20) Surgery Performed Operation Date: 01/04/20 11:45 Actual Procedures p L4-5 hemilaminectomy, L5-S1 TLIF w. posterior instrumentation - Diana Denton MD Occupational Therapy Treatment Note M2 OT-IP Current Condition Start: 01/05/20 18:35 Freq: Status: Active Protocol: Document 01/05/20 11:06 [facility] (Rec: 01/05/20 18:53 [facility] [id number]) Occupational Therapy Current Condition Current Condition Evaluation Date 01/05/20 Treatment Diagnosis L5-S1 TLIF, decreased mobilty and self care Diagnosis Onset Date 01/04/20 Post Operative Precautions Lumbar Precautions Log Roll,No Twisting,Limit Bending,Lifting Restriction of 10 lbs,Gait Belt above Incisional Area Weight Bearing Status Weight Bearing Status Weight Bear as Tolerated M3 OT- IP Subjective and Pain Start: 01/05/20 18:35 Freq: Status: Active Protocol: Document 01/06/20 15:30 [facility] (Rec: 01/06/20 15:41 [facility] [email or web address]) OT- Subjective Occupational Therapy Visit Type Type Progress Note Visit Start Time 14:13 Visit Stop Time 14:48 Total Visit Minutes 35 Notes Partial co-treat with p.t. OT Pain Assessment Pain When Pain Assessed At Rest Pain Present Pain Present Pain Reported Location Lower Back Intensity 7 Scale Used Numeric (0 - 10) Management Techniques Modification of Treatment,Re- positioning,Timing of Activity with Medications M4 OT- IP ADL's Start: 01/05/20 18:35 Freq: Status: Active Protocol: Document 01/06/20 15:30 [facility] (Rec: 01/06/20 15:41 C[facility] [email or web address]) OT [id number] Comments OT Self-Feeding Comments Not meal time but pt is able to get water to mouth. OT ADL-Grooming Comments OT Grooming Comments not performed OT ADL-Oral Care Comments Oral Care Comments not performed OT ADL-Dressing Comments OT Dressing Comments demonstrated hip kit for pt but pt declined to attempt OT ADL-Toileting General Evaluation Toileting Ability Standby Assistance Devices Toileting Assistive Devices Commode,Grab Bars Comments OT Toileting Comments pt urinated seated on toilet. OT ADL-Bathing Comments OT Bathing Comments not performed M5 OT- IP IADL's Start: 01/05/20 18:35 Freq: Status: Active Protocol: Document 01/05/20 11:06 [facility] (Rec: 01/05/20 18:53 [facility] [id number]) OT-Instrumental Activities of Daily Living Deficits IADL Deficits Identified Deficits Home Safety Awareness Awareness of Need for Assistance at Home Good Awareness Medication Management Medication Management Comments Pt states use of pill organizer. Money Management Money Management Caregiver Provides Assistance Meal Preparation Meal Preparation Caregiver Provides Assist Roll Or Tape Edge Machine Operator Roll Or Tape Edge Machine Operator Caregiver Provides Assist M6 OT- IP Functional Cognition Start: 01/05/20 18:35 Freq: Status: Active Protocol: Document 01/06/20 15:30 [facility] (Rec: 01/06/20 15:41 [facility] [email or web address]) Cognitive Factors Limiting Selfcare Function Cognitive Ability Level of Alertness Alert Patient Orientation Name,Age,Birthday,Month,Date, Year,Day of Week,Place, Situation Attention Span Ability Capable of Focused Attention, Capable of Sustained Attention Ability to Follow Commands Able to Follow Multi-Step Commands M7 OT- IP Mobility and Balance Start: 01/05/20 18:35 Freq: Status: Active Protocol: Document 01/06/20 15:30 [facility] (Rec: 01/06/20 15:41 [facility] [email or web address]) OT- Bed Mobility Assessment Rolling Type of Rolling Roll to Right Level of Assistance Maximum Assistance,1 Person Assistance Supine to Sit Supine to Sit Assist Maximum Assistance,1 Person Assistance Sit to Supine Sit to Supine Assist Maximum Assistance,2 Person Assistance Scooting Scooting to Edge of Bed Contact Guard Assistance Scooting Up and Down in Bed Maximum Assistance,2 Person Assistance OT-Transfer Assessment Sit to and From Stand Sit to and from Stand Moderate Assistance Transfers Transfer Ability Moderate Assistance Technique Transfer Destination Bed,Toilet Transfer Technique Stand Step Pivot Devices Transfer Assistive Devices Gait Belt,Front Wheeled Walker OT- Gait Assessment Gait Gait Assistance Required: Moderate Assistance Assistive Devices Assistive Device Gait Belt,Front Wheeled Walker OT- Balance Assessment Sitting Balance and Reactions Static Sitting Balance Ability Good Dynamic Sitting Balance Ability Fair M9 OT- IP Assessment and Plan Start: 01/05/20 18:35 Freq: Status: Active Protocol: Document 01/06/20 15:30 [facility] (Rec: 01/06/20 15:41 [facility] [email or web address]) OT Summary Assessment and Plan Potential Rehabilitation Potential Good Analytic Complexity at Evaluation Moderate Summary OT Impairments Pain,Balance,Functional Cognition,Functional Mobility, Grooming,Dressing,Toileting, Bathing,Toilet Transfers, Shower Transfers,Activity Tolerance Progress Towards Goals Slow Progress due to Pain,Slow Progress due to Medical Issues,Slow Progress due to Activity Tolerance,Slow Progress due to Cognition Assessment Summary Pt participated with therapy today. Pt with 7/10 pain throughout session. Pt had particularly bad pain with sit to supine. Pt will continue to benefit from therapy services. Goals Grooming Goal Independent Dressing Goal Independent Toileting Goal Independent Bathing Goal Independent Toilet Transfer Goal Independent Shower Transfer Goal Minimal Assistance Patient/Caregiver Education Goal Demonstrate Post-Op Precautions Days to Meet Goals 14 Frequency of Treatment Frequency Of Treatment Once a Day Treatment Plan OT Treatment Plan ADL Training,Functional Cognition Training,Functional Mobility,Patient/Family Education,Discharge Planning Other Treatment Recommendations and Next Practice LB dressing equipment Treatment Focus with pt. Discharge Recommendations OT Discharge Recommendations SNF Rehab Home Equipment Needs Defer to SNF Transportation Needs at Discharge Wheelchair/Cabulance
[2020-01-06 16:09] VITALS: BP 133/79; PULSE 81; RESP 18; TEMP 37.6; O2SAT 100
[2020-01-06 19:11] VITALS: BP 126/84; PULSE 80; RESP 18; TEMP 37.1; O2SAT 96
[2020-01-06] MEDS: diazePAM 5 MG TABLET PO (21:34)
[2020-01-06] MEDS: LITHIUM 300 MG IR CAPSULE 600 MG PO (21:35)
[2020-01-06] MEDS: TRAZODONE 100 MG TABLET 200 MG PO (21:35)
[2020-01-06] MEDS: VERAPAMIL SR 180 MG TABLET PO (21:49)
[2020-01-07] VITALS (11 sets, daily range): BP systolic 111–148; BP diastolic 61–94; PULSE 54–84; RESP 16–18; TEMP 36.6–38.4; O2SAT 93–98
[2020-01-07] MEDS: OXYCODONE IR 5 MG TABLET 10 MG PO ×6 (00:12→21:08)
[2020-01-07] MEDS: hydrOXYzine pamoate 25 MG CAPSULE PO ×4 (00:13→17:00)
[2020-01-07] MEDS: ACETAMINOPHEN 325 MG TABLET 650 MG PO ×2 (00:13→08:53)
[2020-01-07] MEDS: LEVOTHYROXINE 75 MCG TABLET PO (05:06)
[2020-01-07] MEDS: LEVOTHYROXINE 100 MCG TABLET PO (05:06)
[2020-01-07] MEDS: OXYCODONE ER 20 MG TAB PO ×3 (06:15→21:08)
[2020-01-07] MEDS: BUDESONIDE 90mcg FLEXHALER (60 PUFF/DEVICE) INH (07:27)
[2020-01-07] MEDS: LITHIUM 300 MG IR CAPSULE PO (08:53)
[2020-01-07] MEDS: FUROSEMIDE 20 MG TABLET PO (08:54)
[2020-01-07] MEDS: GABAPENTIN 400 MG CAPSULE 800 MG PO ×3 (08:54→21:08)
[2020-01-07] MEDS: DOCUSATE 100 MG CAPSULE PO ×2 (08:54→21:08)
[2020-01-07] MEDS: FLUTICASONE 120 SPRAY/16 GM SPRAY.SUSP NASAL (08:54)
[2020-01-07] MEDS: PANTOPRAZOLE 20 MG TABLET PO ×2 (08:54→21:08)
[2020-01-07] MEDS: estradioL 1 MG TABLET PO (08:55)
[2020-01-07] MEDS: SODIUM CHLORIDE 0.9% FLUSH 10 ML IV ×2 (08:55→21:09)
--- NOTE | 2020-01-07 09:22 | OT.IP.TRT ---
Current Diagnoses Other spondylosis with radiculopathy, lumbosacral region (01/04/20) Spinal stenosis, lumbar region without neurogenic claudication (01/04/20) Surgery Performed Operation Date: 01/04/20 11:45 Actual Procedures p L4-5 hemilaminectomy, L5-S1 TLIF w. posterior instrumentation - Diana Denton MD Occupational Therapy Treatment Note M2 OT-IP Current Condition Start: 01/05/20 18:35 Freq: Status: Active Protocol: Document 01/05/20 11:06 [facility] (Rec: 01/05/20 18:53 [facility] [id number]) Occupational Therapy Current Condition Current Condition Evaluation Date 01/05/20 Treatment Diagnosis L5-S1 TLIF, decreased mobilty and self care Diagnosis Onset Date 01/04/20 Post Operative Precautions Lumbar Precautions Log Roll,No Twisting,Limit Bending,Lifting Restriction of 10 lbs,Gait Belt above Incisional Area Weight Bearing Status Weight Bearing Status Weight Bear as Tolerated M3 OT- IP Subjective and Pain Start: 01/05/20 18:35 Freq: Status: Active Protocol: Document 01/07/20 11:11 [facility] (Rec: 01/07/20 11:30 [facility] [email or web address]) OT- Subjective Occupational Therapy Visit Type Type Progress Note Visit Start Time 08:49 Visit Stop Time 09:22 Total Visit Minutes 33 Occupational Therapy Visit Comments Patient Comments Some things are better today, other things are just as hard as yesterday. OT Pain Assessment Pain When Pain Assessed At Rest Pain Present Pain Present Pain Reported Location Lower Back Intensity 5 Scale Used Numeric (0 - 10) Management Techniques Modification of Treatment,Re- positioning,Timing of Activity with Medications M4 OT- IP ADL's Start: 01/05/20 18:35 Freq: Status: Active Protocol: Document 01/07/20 11:11 [facility] (Rec: 01/07/20 11:30 [facility] [email or web address]) OT [id number] Comments OT Self-Feeding Comments Pt had completed breakfast when OT entered OT ADL-Grooming Comments OT Grooming Comments Not performed, pt's pain increased after toileting and pt declined to perform grooming or hygine. OT ADL-Oral Care Comments Oral Care Comments Not performed, pt's pain increased after toileting and pt declined to perform grooming or hygine. OT ADL-Dressing Comments OT Dressing Comments not performed OT ADL-Toileting General Evaluation Toileting Ability Maximum Assistance Areas Needing Assistance Manage Clothing Comments OT Toileting Comments Pt is able to perform her pericare but needed max a for managing clothing. OT ADL-Bathing Comments OT Bathing Comments not performed on this date M5 OT- IP IADL's Start: 01/05/20 18:35 Freq: Status: Active Protocol: Document 01/05/20 11:06 [facility] (Rec: 01/05/20 18:53 [facility] [id number]) OT-Instrumental Activities of Daily Living Deficits IADL Deficits Identified Deficits Home Safety Awareness Awareness of Need for Assistance at Home Good Awareness Medication Management Medication Management Comments Pt states use of pill organizer. Money Management Money Management Caregiver Provides Assistance Meal Preparation Meal Preparation Caregiver Provides Assist Public Relations Professional Public Relations Professional Caregiver Provides Assist M6 OT- IP Functional Cognition Start: 01/05/20 18:35 Freq: Status: Active Protocol: Document 01/06/20 15:30 [facility] (Rec: 01/06/20 15:41 C[facility] [email or web address]) Cognitive Factors Limiting Selfcare Function Cognitive Ability Level of Alertness Alert Patient Orientation Name,Age,Birthday,Month,Date, Year,Day of Week,Place, Situation Attention Span Ability Capable of Focused Attention, Capable of Sustained Attention Ability to Follow Commands Able to Follow Multi-Step Commands M7 OT- IP Mobility and Balance Start: 01/05/20 18:35 Freq: Status: Active Protocol: Document 01/07/20 11:11 [facility] (Rec: 01/07/20 11:30 C[facility] [email or web address]) OT- Bed Mobility Assessment Rolling Type of Rolling Roll to Right Level of Assistance Moderate Assistance Supine to Sit Supine to Sit Assist Moderate Assistance Scooting Scooting to Edge of Bed Standby Assistance OT-Transfer Assessment Sit to and From Stand Sit to and from Stand Minimal Assistance,Moderate Assistance Transfers Transfer Ability Minimal Assistance,Moderate Assistance Technique Transfer Destination Bed,Chair,Toilet Transfer Technique Stand Step Pivot Devices Transfer Assistive Devices Gait Belt,Front Wheeled Walker Comments Mobility Comments Pt tolerated bed mobiltiy with mod a today and min to mod for sit to stand and transfers . Pt with increased pain as she mobilized then requiring increased cues and assist. OT- Gait Assessment Gait Gait Assistance Required: Minimum Assistance,Moderate Assistance Assistive Devices Assistive Device Gait Belt,Front Wheeled Walker Comments Gait Ability Comments Pt needed increased assist the longer she was up. Pt reports shooting pain to both legs L worse than right with longer distances. OT- Balance Assessment Sitting Balance and Reactions Static Sitting Balance Ability Good Dynamic Sitting Balance Ability Fair M9 OT- IP Assessment and Plan Start: 01/05/20 18:35 Freq: Status: Active Protocol: Document 01/07/20 11:11 [facility] (Rec: 01/07/20 11:30 [facility] [email or web address]) OT Summary Assessment and Plan Potential Rehabilitation Potential Good Analytic Complexity at Evaluation Moderate Summary OT Impairments Pain,Balance,Functional Cognition,Functional Mobility, Grooming,Dressing,Toileting, Bathing,Toilet Transfers, Shower Transfers,Activity Tolerance Progress Towards Goals Slow Progress due to Pain,Slow Progress due to Medical Issues,Slow Progress due to Activity Tolerance,Slow Progress due to Cognition Assessment Summary Pt reported decreased pain at start of session and required less assist for bed mobility. However, pt's pain increased with mobility and required increased assist the longer pt was up and mobilizing. Pt will continue to benefit from Ot services. Pt will need SNF for safe discharge as she doesn't have assist at home and she is very limited in her ability to mobilize and perform ADLs at this time. Goals Grooming Goal Independent Dressing Goal Independent Toileting Goal Independent Bathing Goal Independent Toilet Transfer Goal Independent Shower Transfer Goal Minimal Assistance Patient/Caregiver Education Goal Demonstrate Post-Op Precautions Days to Meet Goals 13 Frequency of Treatment Frequency Of Treatment Once a Day Treatment Plan OT Treatment Plan ADL Training,Functional Cognition Training,Functional Mobility,Patient/Family Education,Discharge Planning Other Treatment Recommendations and Next ADLs standing or shower Treatment Focus Discharge Recommendations OT Discharge Recommendations SNF Rehab Home Equipment Needs Defer to SNF Transportation Needs at Discharge Wheelchair/Cabulance
[2020-01-07] MEDS: METHYLPHENIDATE 5 MG TABLET 20 MG PO (09:41)
--- NOTE | 2020-01-07 09:48 | PM.PN.1 ---
Subjective Subjective Date Patient Seen: 01/07/20 Time Patient Seen: 09:48 Interval history: Continues to be very slow to progress with PT. PAinful mobilization. Slightly improved from yesterday. Exam Vital Signs (past 8 hours): - 01/07/20 04:30 01/07/20 07:28 01/07/20 08:00 Temperature 98.7 F 97.8 F Pulse Rate 72 54 L 58 L Respiratory Rate 18 16 18 Blood Pressure 124/71 124/73 Pulse Oximetry 93 95 96 Oxygen Delivery Method Room Air Oxygen Flow Rate 0 Narrative Exam Narrative: Alert oriented female no acute distress. Sitting in chair. Slow to mobilize. Endorses burning back pain Musculoskeletal exam spinal exam. Dressing clean dry and intact. Effort/pain limited movement of BLE. Able to walk with PT assist. SCDs on bilateral lower extremities. No evidence of DVT. Assessment & Plan Assessment & Plan narrative: Patient is slow to mobilize after 1 level TLIF. Her pain and limited mobility are dealying her DC. Patient is progressing, although slowly. She is NV intact on exam, although pain limited motor exam makes full assessment difficult. Plan for DC to SNF on thursday - continue mobilizing with PT Time Spent With Patient Time with patient: less than 15 minutes Quality VTE Deep Vein Thrombosis/Pulmonary Embolism Present on Admission: No
--- NOTE | 2020-01-07 11:01 | PT.IPTN ---
Current Diagnoses Other spondylosis with radiculopathy, lumbosacral region (01/04/20) Spinal stenosis, lumbar region without neurogenic claudication (01/04/20) Surgery Performed Operation Date: 01/04/20 11:45 Actual Procedures p L4-5 hemilaminectomy, L5-S1 TLIF w. posterior instrumentation - Diana Denton MD Physical Therapy Treatment Note M2 PT-IP Current Condition Start: 01/05/20 11:42 Freq: NEEDED Status: Active Protocol: Document 01/05/20 09:05 [facility] (Rec: 01/05/20 12:01 AB [id number]) Physical Therapy Current Condition Current Condition Evaluation Date 01/05/20 Treatment Diagnosis s/p L5S1 postlat/post fusion/ lami; L4-5 hemilami; difficulty in walking Onset Date 01/04/20 Precautions Lumbar Precautions Log Roll,No Twisting,Limit Bending,Lifting Restriction of 10 lbs,Gait Belt above Incisional Area M3 PT-IP Subjective Start: 01/05/20 11:42 Freq: NEEDED Status: Active Protocol: Document 01/07/20 11:01 [facility] (Rec: 01/07/20 11:41 AB [id number]) Subjective Physical Therapy Visit Type Type Treatment Note Visit Start Time 11:01 Visit Stop Time 11:25 Total Visit Minutes 24 Number of COMPUTER VIDEO GAME DESIGNER Visits 0 Physical Therapy Visit Comments Patient Comments checked on pt ~ 920 am but pt just finished with OT and wanted to rest first. Checked on pt again and pt agreed to do PT. Therapy Pain Assessment Pain When Pain Assessed At Rest Pain Present Pain Present Pain Reported Location Lower Back Intensity 5 Scale Used Numeric (0 - 10) Pain Management Techniques Distraction,Modification of Treatment,Re-positioning, Timing of Activity with Medications M4 PT-IP Mobility and Gait Start: 01/05/20 11:42 Freq: NEEDED Status: Active Protocol: Document 01/07/20 11:01 AB (Rec: 01/07/20 11:41 AB [email or web address]) PT-Bed Mobility Assessment Rolling Type of Rolling Log Rolling Level of Assist Minimal Assistance Sit to Supine Sit to Supine Minimal Assistance,1 Person Assistance PT-Transfer Assessment Sit to and From Stand Sit to and from Stand Minimal Assistance,1 Person Assistance,Use of Upper Extremities Equipment Transfer Assistive Device Gait Belt,Front Wheeled Walker Orthotic/Prosthetic Devices or Brace: No Transfers Transfer Technique ambulated using FWW Transfer Ability Level of Assist Minimal Assistance,1 Person Assistance,Use of Upper Extremities Comments Mobility Comments completed sit to stand from the chair min A and cues. ambulated ~ 12 ft using FWW min A. completed sit to supine log roll min A and max cues. positioned pt in bed. call light and table placed within reach. pt continues to have decrease activity tolerance and unable to do more ambulation. pt continues to presents with really slow movement requiring increase time to complete all tasks and requires cues for techniques and safety. Gait Assessment Gait Gait Assistance Required: Minimum Assistance,1 Person Assist Distance (Feet) 12 Able to Maintain Weight Bearing Status Yes During Gait Assistive Devices Assistive Device Gait Belt,Front Wheeled Walker Orthotic/Prosthetic Devices or Brace: No Gait Deviations General Gait Pattern Antalgic,Decreased Stride Length,Decreased Feet Clearance,Flexed Trunk Factors Limiting Gait Function Factors Limiting Gait Function Decreased Activity Tolerance, Decreased Strength,Limited Range of Motion,Pain,Poor Balance,Poor Safety Awareness M5 PT-IP Objective Assessments Start: 01/05/20 11:42 Freq: NEEDED Status: Active Protocol: Document 01/05/20 09:05 [facility] (Rec: 01/05/20 12:01 [email or web address]) Orientation Orientation/Cognition Level of Alertness Alert Orientation Name,Place,Situation Safety Awareness Decreased Safety Awareness Memory Description Short Term Impaired Gross Range of Motion Lower Extremity ROM Assessment Within Functional Limits Strength Lower Extremity Strength Assessment Bilaterally Impaired Hip 3-/5 Knee 3+/5 Sensation Assessment Sensation Gross Sensation Right LE Impaired,Left LE Impaired Light Touch Impaired Proprioception (Position) Impaired Sensation Description Numbness,Tingling Comments Sensation Comments numbness/tingling on B feet M6 PT-IP Treatment Start: 01/05/20 11:42 Freq: NEEDED Status: Active Protocol: Document 01/07/20 11:01 AB (Rec: 01/07/20 11:41 AB [email or web address]) Physical Therapy Treatment Education Education Provided Precautions,Safety M7 PT-IP Assessment and Plan Start: 01/05/20 11:42 Freq: NEEDED Status: Active Protocol: Document 01/07/20 11:01 AB (Rec: 01/07/20 11:41 [email or web address]) PT Summary Assessment and Plan Potential Rehabilitation Potential Good Summary Impairments Pain,ROM,Strength,Balance, Coordination,Sensation,Tone, Cognition,Bed Mobility, Transfers,Gait,Activity Tolerance Progress Towards Goals Slow Progress due to Pain,Slow Progress due to Activity Tolerance Assessment Summary pt improving slowly with mobility and requiring min A using FWW but continues to present with decrease activity tolerance and was only able to ambulate ~ 12 ft and pt has to rest and unable to do more ambulation. Pt continues to c/o increase pain affecting function. pt needs to be stronger and more independent to be able to safely d/c home. pt will not have any assistance at home due to spouse has to go to work. pt will require SNF rehab to improve strength and functional independence. Goals Bed Mobility Goal Standby Assistance Transfer Goal Standby Assistance,Front Wheeled Walker Gait Goal Standby Assistance,Front Wheel Walker Gait Distance 50 Other Goals up/down 6 steps using SPC+DRY WALL PLASTERER min A Days to Meet Goals 5 Frequency of Treatment Frequency Of Treatment Twice a Day Treatment Plan Physical Therapy Treatment Plan Bed Mobility Training,Transfer Training,Gait Training, Therapeutic Exercise,Balance Retraining,Post Op Education, Discharge Planning,Hot or Cold Pack,Neuromuscular Re-ed, Coordination Retraining,Manual Therapy Other Recommendations and Next Treatment transfers, ambulation Focus Recommendations To Nursing Amount of Assist Needed 2 Person Assist Discharge Recommendations PT Discharge Recommendations SNF Rehab Transportation Needs at Discharge Wheelchair/Cabulance
--- NOTE | 2020-01-07 13:00 | PT.IPTN ---
Current Diagnoses Other spondylosis with radiculopathy, lumbosacral region (01/04/20) Spinal stenosis, lumbar region without neurogenic claudication (01/04/20) Surgery Performed Operation Date: 01/04/20 11:45 Actual Procedures p L4-5 hemilaminectomy, L5-S1 TLIF w. posterior instrumentation - Diana Denton MD Physical Therapy Treatment Note M2 PT-IP Current Condition Start: 01/05/20 11:42 Freq: NEEDED Status: Active Protocol: Document 01/05/20 09:05 AB (Rec: 01/05/20 12:01 AB [email or web address]) Physical Therapy Current Condition Current Condition Evaluation Date 01/05/20 Treatment Diagnosis s/p L5S1 postlat/post fusion/ lami; L4-5 hemilami; difficulty in walking Onset Date 01/04/20 Precautions Lumbar Precautions Log Roll,No Twisting,Limit Bending,Lifting Restriction of 10 lbs,Gait Belt above Incisional Area M3 PT-IP Subjective Start: 01/05/20 11:42 Freq: NEEDED Status: Active Protocol: Document 01/07/20 13:00 AB (Rec: 01/07/20 13:58 AB [email or web address]) Subjective Physical Therapy Visit Type Type Treatment Note Visit Start Time 13:00 Visit Stop Time 13:45 Total Visit Minutes 45 Number of PIPE CHANGER Visits 0 Physical Therapy Visit Comments Patient Comments pt with NAC . pt agreeable to do PT after using bedside commode/washing up. Therapy Pain Assessment Pain When Pain Assessed At Rest Pain Present Pain Present Pain Reported Location Lower Back Intensity 5 Scale Used c/o increase pain with mobility LLE>RLE Pain Management Techniques Re-positioning,Timing of Activity with Medications M4 PT-IP Mobility and Gait Start: 01/05/20 11:42 Freq: NEEDED Status: Active Protocol: Document 01/07/20 13:00 AB (Rec: 01/07/20 13:58 AB [email or web address]) PT-Bed Mobility Assessment Rolling Type of Rolling Log Rolling Level of Assist Minimal Assistance Sit to Supine Sit to Supine Minimal Assistance,1 Person Assistance PT-Transfer Assessment Sit to and From Stand Sit to and from Stand Minimal Assistance,1 Person Assistance,Use of Upper Extremities Equipment Transfer Assistive Device Gait Belt,Front Wheeled Walker Orthotic/Prosthetic Devices or Brace: No Transfers Transfer Destination Bed,Chair Transfer Technique ambulated using FWW Transfer Ability Level of Assist Minimal Assistance,1 Person Assistance,Use of Upper Extremities Comments Mobility Comments pt completed sit to stand from bedside commode min A and cues and step transfer to bed using FWW min A and cues. agreed to do ambulation and completed ~ 12 ft. pt requested to go back to bed and unable to ambulate more due to c/o increas back pain and stated that she has to sit down. pt completed sit to supine log roll min A and cues . pt continues to present with really slow movements and cues with tasks. spouse in room with pt and is aware of pt's mobility and rehab recommendation. positioned pt in bed. completed LE exercises. call light and table placed within reach. left pt with spouse in room. Gait Assessment Gait Gait Assistance Required: Minimum Assistance,1 Person Assist Distance (Feet) 12 Able to Maintain Weight Bearing Status Yes During Gait Assistive Devices Assistive Device Gait Belt,Front Wheeled Walker Orthotic/Prosthetic Devices or Brace: No Gait Deviations General Gait Pattern Antalgic,Decreased Stride Length,Decreased Feet Clearance,Flexed Trunk Factors Limiting Gait Function Factors Limiting Gait Function Decreased Activity Tolerance, Decreased Sensation,Decreased Strength,Difficulty Following Directions,Limited Range of Motion,Pain,Poor Balance,Poor Safety Awareness M5 PT-IP Objective Assessments Start: 01/05/20 11:42 Freq: NEEDED Status: Active Protocol: Document 01/05/20 09:05 AB (Rec: 01/05/20 12:01 [email or web address]) Orientation Orientation/Cognition Level of Alertness Alert Orientation Name,Place,Situation Safety Awareness Decreased Safety Awareness Memory Description Short Term Impaired Gross Range of Motion Lower Extremity ROM Assessment Within Functional Limits Strength Lower Extremity Strength Assessment Bilaterally Impaired Hip 3-/5 Knee 3+/5 Sensation Assessment Sensation Gross Sensation Right LE Impaired,Left LE Impaired Light Touch Impaired Proprioception (Position) Impaired Sensation Description Numbness,Tingling Comments Sensation Comments numbness/tingling on B feet M6 PT-IP Treatment Start: 01/05/20 11:42 Freq: NEEDED Status: Active Protocol: Document 01/07/20 13:00 AB (Rec: 01/07/20 13:58 AB [email or web address]) Physical Therapy Treatment Exercises Exercises Ankle Pumps,Gluteal Sets,Short Arc Quads Education Education Provided Safety Other Treatments Other Treatment Performed completed and educated on LE exercises M7 PT-IP Assessment and Plan Start: 01/05/20 11:42 Freq: NEEDED Status: Active Protocol: Document 01/07/20 13:00 AB (Rec: 01/07/20 13:58 AB [id number]) PT Summary Assessment and Plan Potential Rehabilitation Potential Good Summary Impairments Pain,ROM,Strength,Balance, Coordination,Sensation,Tone, Cognition,Bed Mobility, Transfers,Gait,Activity Tolerance Progress Towards Goals Slow Progress due to Pain,Slow Progress due to Medical Issues,Slow Progress due to Activity Tolerance Assessment Summary pt continues to have decrease activity tolerance and is only able to ambulate ~ 12 ft using FWW min A and c/o increase pain and fatigue afterwards. informed spouse regarding needed assistance at home and stated that he can only be with her 2 day and has to go back to work. pt will require 24/7 assist at this time. pt and spouse is aware of SNF recommendation but if pt goes home, she will need homehealth PT. informed spouse that pt is limited in mobility and even unable to ambulate far enough to use the toilet. spouse stated that he might get a bedside commode for pt. pt continues to need SNF rehab to improve strength and functional mobility independence. Goals Bed Mobility Goal Standby Assistance Transfer Goal Standby Assistance,Front Wheeled Walker Gait Goal Standby Assistance,Front Wheel Walker Gait Distance 50 Other Goals up/down 6 steps using SPC+SUPPLY SERVICE WORKER min A Days to Meet Goals 5 Frequency of Treatment Frequency Of Treatment Twice a Day Treatment Plan Physical Therapy Treatment Plan Bed Mobility Training,Transfer Training,Gait Training, Therapeutic Exercise,Balance Retraining,Post Op Education, Discharge Planning,Hot or Cold Pack,Neuromuscular Re-ed, Coordination Retraining,Manual Therapy Other Recommendations and Next Treatment transfers, ambulation Focus Recommendations To Nursing Amount of Assist Needed 1 Person Assist Discharge Recommendations PT Discharge Recommendations SNF Rehab Transportation Needs at Discharge Wheelchair/Cabulance
[2020-01-07] MEDS: ALBUTEROL HFA 60 PUFF/8 GM INH INH (15:09)
[2020-01-07] MEDS: ONDANSETRON 4 MG ODT 8 MG PO (15:50)
[2020-01-07] MEDS: carisoprodoL 350 MG TABLET PO (18:22)
[2020-01-07] MEDS: MAG HYDROX/ALUM/SIMETH 30 ML UDC PO (18:22)
[2020-01-07] MEDS: diazePAM 5 MG TABLET PO (21:08)
[2020-01-07] MEDS: SENNOSIDES 8.6 MG TABLET 17.2 MG PO (21:08)
[2020-01-07] MEDS: VERAPAMIL SR 180 MG TABLET PO (21:09)
[2020-01-07] MEDS: TRAZODONE 100 MG TABLET 200 MG PO (21:09)
[2020-01-07] MEDS: LITHIUM 300 MG IR CAPSULE 600 MG PO (21:09)
[2020-01-08] VITALS (9 sets, daily range): BP systolic 118–152; BP diastolic 67–85; PULSE 68–89; RESP 16–18; TEMP 36.1–37.7; O2SAT 92–99
[2020-01-08] MEDS: ACETAMINOPHEN 325 MG TABLET 650 MG PO ×2 (00:19→08:11)
--- NOTE | 2020-01-08 03:48 | PC.NURSE ---
During the physical assessment the patient is noted to be very drowsy and sedated. She is alert and oriented x4 and answers questions appropriately, but speech is delayed and slurred. She complains of sharp and shooting pain 8/10 that radiates from the left hip to the foot. Miranol and Tylenol given at 0019, see MAR. Vitals signs BP 135/88, Pulse 84, RR 16, 97% on room air and temperature of 99.9 F. Patient encouraged to take deep breaths and taught/reinforced how to use the incentive spirometer.
[2020-01-08] MEDS: hydrOXYzine pamoate 25 MG CAPSULE PO ×4 (04:18→21:15)
[2020-01-08] MEDS: OXYCODONE IR 5 MG TABLET 10 MG PO ×3 (04:18→13:24)
[2020-01-08] MEDS: LEVOTHYROXINE 75 MCG TABLET PO (05:53)
[2020-01-08] MEDS: LEVOTHYROXINE 100 MCG TABLET PO (05:53)
[2020-01-08] MEDS: OXYCODONE ER 20 MG TAB PO ×3 (05:53→21:17)
[2020-01-08] MEDS: BUDESONIDE 90mcg FLEXHALER (60 PUFF/DEVICE) INH (07:55)
[2020-01-08] MEDS: PANTOPRAZOLE 20 MG TABLET PO ×2 (08:12→21:15)
[2020-01-08] MEDS: LITHIUM 300 MG IR CAPSULE PO (08:13)
[2020-01-08] MEDS: FUROSEMIDE 20 MG TABLET PO (08:13)
[2020-01-08] MEDS: GABAPENTIN 400 MG CAPSULE 800 MG PO ×3 (08:13→21:16)
[2020-01-08] MEDS: SODIUM CHLORIDE 0.9% FLUSH 10 ML IV ×2 (08:13→21:48)
[2020-01-08] MEDS: DOCUSATE 100 MG CAPSULE PO ×2 (08:13→21:16)
[2020-01-08] MEDS: FLUTICASONE 120 SPRAY/16 GM SPRAY.SUSP NASAL (08:14)
[2020-01-08] MEDS: estradioL 1 MG TABLET PO (08:14)
[2020-01-08] MEDS: METHYLPHENIDATE 5 MG TABLET 20 MG PO (09:13)
--- NOTE | 2020-01-08 09:35 | P.PN_ITS ---
Subjective Subjective Date Patient Seen: 01/08/20 Time Patient Seen: 09:35 Interval history: Continues to be very slow to progress with PT. Painful mobilization. Slightly improved from yesterday, but still very slow and deleberate with PT. Exam Vital Signs (past 8 hours): - 01/08/20 04:03 01/08/20 07:00 01/08/20 07:59 Temperature 98.4 F 98.7 F Pulse Rate 81 74 68 Respiratory Rate 16 16 18 Blood Pressure 120/67 129/74 Pulse Oximetry 94 92 97 Oxygen Delivery Method Room Air Oxygen Flow Rate 0 Narrative Exam Narrative: Alert oriented female no acute distress. LAying in bed, jsut got done with PT. Slow to mobilize. Endorses burning back pain Musculoskeletal exam spinal exam. Dressing clean dry and intact. Effort/pain limited movement of BLE. Able to walk with PT assist. SCDs on bilateral lower extremities. No evidence of DVT. Able to DF and PF bilateral ankles. Sensation intact to feet. Assessment & Plan Assessment & Plan narrative: Patient continnues to be very slow to mobilize a fter 1 level TLIF. Her pain and limited mobility are dealying her DC. Patient is progressing, although slowly. She is NV intact on exam, although pain limited motor exam makes full assessment difficult. - DC to SNF on thursday - continue mobilizing with PT Quality VTE Deep Vein Thrombosis/Pulmonary Embolism Present on Admission: No
--- NOTE | 2020-01-08 10:31 | PT.IPTN ---
Current Diagnoses Other spondylosis with radiculopathy, lumbosacral region (01/04/20) Spinal stenosis, lumbar region without neurogenic claudication (01/04/20) Surgery Performed Operation Date: 01/04/20 11:45 Actual Procedures p L4-5 hemilaminectomy, L5-S1 TLIF w. posterior instrumentation - Diana Denton MD Physical Therapy Treatment Note M2 PT-IP Current Condition Start: 01/05/20 11:42 Freq: NEEDED Status: Active Protocol: Document 01/05/20 09:05 AB (Rec: 01/05/20 12:01 AB [email or web address]) Physical Therapy Current Condition Current Condition Evaluation Date 01/05/20 Treatment Diagnosis s/p L5S1 postlat/post fusion/ lami; L4-5 hemilami; difficulty in walking Onset Date 01/04/20 Precautions Lumbar Precautions Log Roll,No Twisting,Limit Bending,Lifting Restriction of 10 lbs,Gait Belt above Incisional Area M3 PT-IP Subjective Start: 01/05/20 11:42 Freq: NEEDED Status: Active Protocol: Document 01/08/20 10:12 AW (Rec: 01/08/20 10:31 AW [id number]) Subjective Physical Therapy Visit Type Type Treatment Note Visit Start Time 09:02 Visit Stop Time 09:33 Total Visit Minutes 31 Number of FARM HELPER Visits 0 Physical Therapy Visit Comments Patient Comments Pt sleepy but willing to participate with PT Therapy Pain Assessment Pain When Pain Assessed At Rest Pain Present Pain Present Pain Reported Location Lower Back Intensity 5 Scale Used no c/o increased pain with movement Pain Management Techniques Re-positioning,Timing of Activity with Medications M4 PT-IP Mobility and Gait Start: 01/05/20 11:42 Freq: NEEDED Status: Active Protocol: Document 01/08/20 10:12 AW (Rec: 01/08/20 10:31 AW [id number]) PT-Bed Mobility Assessment Rolling Type of Rolling Log Rolling Level of Assist Minimal Assistance Supine to Sit Supine to Sit Moderate Assistance,1 Person Assistance Sit to Supine Sit to Supine Minimal Assistance,1 Person Assistance PT-Transfer Assessment Sit to and From Stand Sit to and from Stand Minimal Assistance,1 Person Assistance,Use of Upper Extremities Equipment Transfer Assistive Device Gait Belt,Front Wheeled Walker Orthotic/Prosthetic Devices or Brace: No Transfers Transfer Destination Bed,Toilet Transfer Technique ambulated using FWW Transfer Ability Level of Assist Minimal Assistance,1 Person Assistance,Use of Upper Extremities Comments Mobility Comments Pt requested to exit the bed to her left side but was lying close to the left side. She attempted to bridge her hips and scoot toward the right side of the bed, but needed assist with pull of draw pad to move her hips. Pt then completed log roll to her left side and sidelying to sit transition min A x 1 with assist needed to move her legs off the bed and assist at her shoulders to right her trunk. Pt stood from the bed in its lowest position using FWW min A x 1 and proceeded to walk very slowly toward the bathroom. She transferred to and from the toilet CGA to min A x 1 and use of grab bar on her right side. She also required assist for balance as she managed her clothing. Pt requested return to bed and walked very slowly around the foot of the bed to the left side where she required min A x 1 for sit to supine transition. Pt was positioned in the bed with call light and all needs in reach. Gait Assessment Gait Gait Assistance Required: Minimum Assistance,1 Person Assist Distance (Feet) 18 Able to Maintain Weight Bearing Status Yes During Gait Assistive Devices Assistive Device Gait Belt,Front Wheeled Walker Orthotic/Prosthetic Devices or Brace: No Gait Deviations General Gait Pattern Antalgic,Decreased Stride Length,Decreased Feet Clearance,Flexed Trunk Factors Limiting Gait Function Factors Limiting Gait Function Decreased Activity Tolerance, Decreased Sensation,Decreased Strength,Limited Range of Motion,Pain,Poor Balance,Poor Safety Awareness Comments Gait Comments Refer to mobility comments. Ambulation of ~18 feet with FWW from bed to toilet took >3 minutes to complete. M5 PT-IP Objective Assessments Start: 01/05/20 11:42 Freq: NEEDED Status: Active Protocol: Document 01/05/20 09:05 AB (Rec: 01/05/20 12:01 AB [id number]) Orientation Orientation/Cognition Level of Alertness Alert Orientation Name,Place,Situation Safety Awareness Decreased Safety Awareness Memory Description Short Term Impaired Gross Range of Motion Lower Extremity ROM Assessment Within Functional Limits Strength Lower Extremity Strength Assessment Bilaterally Impaired Hip 3-/5 Knee 3+/5 Sensation Assessment Sensation Gross Sensation Right LE Impaired,Left LE Impaired Light Touch Impaired Proprioception (Position) Impaired Sensation Description Numbness,Tingling Comments Sensation Comments numbness/tingling on B feet M6 PT-IP Treatment Start: 01/05/20 11:42 Freq: NEEDED Status: Active Protocol: Document 01/08/20 10:12 AW (Rec: 01/08/20 10:31 AW [id number]) Physical Therapy Treatment Education Education Provided Precautions,Safety Other Treatments Other Treatment Performed Continued to educate pt on benefits of continued mobility and risks of inactivity. M7 PT-IP Assessment and Plan Start: 01/05/20 11:42 Freq: NEEDED Status: Active Protocol: Document 01/08/20 10:12 AW (Rec: 01/08/20 10:31 AW [id number]) PT Summary Assessment and Plan Potential Rehabilitation Potential Good Status of Condition at Evaluation Evolving Summary Impairments Pain,ROM,Strength,Balance, Coordination,Sensation,Tone, Cognition,Bed Mobility, Transfers,Gait,Activity Tolerance Progress Towards Goals Slow Progress due to Pain,Slow Progress due to Activity Tolerance Assessment Summary Pt demonstrates somewhat improved activity tolerance but still required min A x 1 for all mobility. She continues to be a good candidate for SNF rehab in order to improve her strength and independence with functional mobility. She has been unable to attempt stair climbing and will need to be able to manage 6 steps without railing if she goes home. She will require 24/7 assist with all mobility at discharge and would benefit from continued therapy. If plan is for home, pt will need home health and may need additional equipment such as a bedside commode. Goals Bed Mobility Goal Standby Assistance Transfer Goal Standby Assistance,Front Wheeled Walker Gait Goal Standby Assistance,Front Wheel Walker Gait Distance 50 Other Goals up/down 6 steps using SPC+SHANK BONER min A Days to Meet Goals 5 Frequency of Treatment Frequency Of Treatment Twice a Day Treatment Plan Physical Therapy Treatment Plan Bed Mobility Training,Transfer Training,Gait Training, Therapeutic Exercise,Balance Retraining,Post Op Education, Discharge Planning,Hot or Cold Pack,Neuromuscular Re-ed, Coordination Retraining,Manual Therapy Other Recommendations and Next Treatment transfers, ambulation, stairs Focus if appropriate Recommendations To Nursing Amount of Assist Needed 1 Person Assist Discharge Recommendations PT Discharge Recommendations SNF Rehab Equipment Needed for Home Before BSC if going home Discharge Transportation Needs at Discharge Wheelchair/Cabulance
--- NOTE | 2020-01-08 13:03 | CM.DPC ---
DCP Ongoing SNF planning Per MD, pt making very slow progress and will continue to work with therapy towards likely plan of d/c to SNF tomorrow, Thursday, if medically stable. Per PT, pt was better able to manage bed mobility and was able to ambulate very slowly from bed to the bathroom and back but still not safe for d/c home alone as spouse has to go back to work on Thursday and no one available to stay 24/ with pt at d/c. SW met bedside with pt and explained role and pt confirms that she is agreeable with recommendation of SNF at d/c as she feels this will be needed until she is more independent with ambulation and ADL's. Pt confirms that preference is [facility] as spouse works in [employer] [employer] [facility] [employer] and could visit via window or similar. SW updated her that [facility] has accepted pending insurance auth that cannot be confirmed until at least tomorrow as they are closed for the holiday weekend. Pt acknowledges understanding and states spouse will be in later and agreeable with SNF as well. SW called [facility] and confirmed they have accepted pt pending insurance auth that was sent later in the afternoon on Thursday and they will call first thing tomorrow (Thursday) morning. SW updated that SNF still needed at d/c. Plan: SW to follow in the morning with [facility] on insurance SNF auth and likely plan of d/c to SNF if medically stable. LEOBARDO Newsome
--- NOTE | 2020-01-08 13:07 | PT.IPTN ---
Current Diagnoses Other spondylosis with radiculopathy, lumbosacral region (01/04/20) Spinal stenosis, lumbar region without neurogenic claudication (01/04/20) Surgery Performed Operation Date: 01/04/20 11:45 Actual Procedures p L4-5 hemilaminectomy, L5-S1 TLIF w. posterior instrumentation - Diana Denton MD Physical Therapy Treatment Note M2 PT-IP Current Condition Start: 01/05/20 11:42 Freq: NEEDED Status: Active Protocol: Document 01/05/20 09:05 AB (Rec: 01/05/20 12:01 AB [email or web address]) Physical Therapy Current Condition Current Condition Evaluation Date 01/05/20 Treatment Diagnosis s/p L5S1 postlat/post fusion/ lami; L4-5 hemilami; difficulty in walking Onset Date 01/04/20 Precautions Lumbar Precautions Log Roll,No Twisting,Limit Bending,Lifting Restriction of 10 lbs,Gait Belt above Incisional Area M3 PT-IP Subjective Start: 01/05/20 11:42 Freq: NEEDED Status: Active Protocol: Document 01/08/20 12:01 EDY (Rec: 01/08/20 13:07 EDY [id number]) Subjective Physical Therapy Visit Type Type Treatment Note Visit Start Time 12:01 Visit Stop Time 12:32 Total Visit Minutes 31 Physical Therapy Visit Comments Patient Comments Pt sleepy but willing to participate with PT Therapy Pain Assessment Pain When Pain Assessed At Rest Pain Present Pain Present Pain Reported M4 PT-IP Mobility and Gait Start: 01/05/20 11:42 Freq: NEEDED Status: Active Protocol: Document 01/08/20 12:01 EDY (Rec: 01/08/20 13:07 EYD [id number]) PT-Bed Mobility Assessment Rolling Type of Rolling Log Rolling Level of Assist Contact Guard Assistance Supine to Sit Supine to Sit Standby Assistance,Contact Guard Assistance,Bedrails Scooting Scooting to Edge of Bed Standby Assistance PT-Transfer Assessment Sit to and From Stand Sit to and from Stand Contact Guard Assistance,1 Person Assistance,Use of Upper Extremities Equipment Transfer Assistive Device Gait Belt,Front Wheeled Walker Orthotic/Prosthetic Devices or Brace: No Transfers Transfer Destination Chair,Toilet Transfer Technique ambulated using FWW Transfer Ability Level of Assist Contact Guard Assistance,1 Person Assistance,Use of Upper Extremities Comments Mobility Comments Pt wanting to use restroom. Logroll to right SBA with instruction to reposition arms while pushing up from sidelying position very slowly . Once seated on side of bed, pt initially put one hand on the bedrail and the other in back of her which put her in a position of potentially twisting her back. Instructed how to scoot using hands behind her to push evenly to get further to edge of bed prior to attempting to stand. Pt stood SBA with one hand pushing from bed and the other on the FWW which was braced by therapist. Pt ambulated to toilet in a slightly flexed position requiring cues to stand straight. Also did not fully extend at the knee during ambulation. She used handrails in the bathroom to lower onto the toilet SBA. Once done voiding, therapist assisted with consuelo and tianna doss. Pt walked to chair and turned around and backed to the chair to sit. Pillows were placed behind pt 's back for comfort. OPERATIONS LABEL CLERK brought food tray and pt left in room with all needs within reach. Gait Assessment Gait Gait Assistance Required: Standby Assistance,Contact Guard Assist,1 Person Assist Distance (Feet) 18 Assistive Devices Assistive Device Gait Belt,Front Wheeled Walker Orthotic/Prosthetic Devices or Brace: No Gait Deviations General Gait Pattern Antalgic,Decreased Stride Length,Decreased Feet Clearance,Flexed Trunk Factors Limiting Gait Function Factors Limiting Gait Function Decreased Activity Tolerance, Decreased Sensation,Decreased Strength,Limited Range of Motion,Pain,Poor Balance,Poor Safety Awareness Comments Gait Comments See mobility comments. Needs cues for posture and knee extension. M5 PT-IP Objective Assessments Start: 01/05/20 11:42 Freq: NEEDED Status: Active Protocol: Document 01/05/20 09:05 AB (Rec: 01/05/20 12:01 AB [id number]) Orientation Orientation/Cognition Level of Alertness Alert Orientation Name,Place,Situation Safety Awareness Decreased Safety Awareness Memory Description Short Term Impaired Gross Range of Motion Lower Extremity ROM Assessment Within Functional Limits Strength Lower Extremity Strength Assessment Bilaterally Impaired Hip 3-/5 Knee 3+/5 Sensation Assessment Sensation Gross Sensation Right LE Impaired,Left LE Impaired Light Touch Impaired Proprioception (Position) Impaired Sensation Description Numbness,Tingling Comments Sensation Comments numbness/tingling on B feet M6 PT-IP Treatment Start: 01/05/20 11:42 Freq: NEEDED Status: Active Protocol: Document 01/08/20 12:01 EDY (Rec: 01/08/20 13:07 LJ [id number]) Physical Therapy Treatment Education Education Provided Precautions,Safety Other Treatments Other Treatment Performed demonstrated hip hinging and scooting to edge of bed properly to adhere to precautions M7 PT-IP Assessment and Plan Start: 01/05/20 11:42 Freq: NEEDED Status: Active Protocol: Document 01/08/20 12:01 EDY (Rec: 01/08/20 13:07 [id number]) PT Summary Assessment and Plan Potential Rehabilitation Potential Good Status of Condition at Evaluation Evolving Summary Impairments Pain,ROM,Strength,Balance, Coordination,Sensation,Tone, Cognition,Bed Mobility, Transfers,Gait,Activity Tolerance Progress Towards Goals Slow Progress due to Pain,Slow Progress due to Activity Tolerance Assessment Summary Pt improved with bed mobility needing onlyinstructions and SBA. Moving very slowly still and seems very groggy. Needs encouragement to increase activity level when appropriate. Goals Bed Mobility Goal Standby Assistance Transfer Goal Standby Assistance,Front Wheeled Walker Gait Goal Standby Assistance,Front Wheel Walker Gait Distance 50 Other Goals up/down 6 steps using SPC+ADMIN ASST min A Days to Meet Goals 5 Frequency of Treatment Frequency Of Treatment Twice a Day Treatment Plan Physical Therapy Treatment Plan Bed Mobility Training,Transfer Training,Gait Training, Therapeutic Exercise,Balance Retraining,Post Op Education, Discharge Planning,Hot or Cold Pack,Neuromuscular Re-ed, Coordination Retraining,Manual Therapy Other Recommendations and Next Treatment transfers, ambulation, stairs Focus if appropriate Recommendations To Nursing Amount of Assist Needed Standby Assistance Discharge Recommendations PT Discharge Recommendations SNF Rehab Equipment Needed for Home Before BSC if going home Discharge Transportation Needs at Discharge Wheelchair/Cabulance
[2020-01-08 14:43] LABS: COVID19 -Nasal RAPID Negative (Negative)
[2020-01-08] MEDS: OXYCODONE IR 5 MG TABLET 15 MG PO ×3 (16:18→22:52)
--- NOTE | 2020-01-08 17:56 | PC.NURSE ---
Evening Shift Note- Patient reports a sharp shooting pain going up and down left leg which is different then pain previously to surgery. Called oncal dr green regaurding patients complaints of pain shooting up and down left leg. No new orders, Dr. Green did not want to change or add anything at this time since Dr. Denton would be seeing patient tomorrow morning. Patient in bed resting quietly and watching TV with sig other at bedside. Patient alert ad oriented and able to make needs known to staff. Patient pleasent, calm, and cooperative with care. Patient calling appropriatly for assistance. safety measures in place. Call flor and phone within reach. Will continue to monitor.
[2020-01-08] MEDS: LITHIUM 300 MG IR CAPSULE 600 MG PO (21:14)
[2020-01-08] MEDS: TRAZODONE 100 MG TABLET 200 MG PO (21:15)
[2020-01-08] MEDS: diazePAM 5 MG TABLET PO (21:15)
[2020-01-08] MEDS: carisoprodoL 350 MG TABLET PO (21:26)
[2020-01-08] MEDS: VERAPAMIL SR 180 MG TABLET PO (21:28)
[2020-01-08] MEDS: MAGNESIUM HYDROXIDE 30 ML UDC PO (23:46)
--- NOTE | 2020-01-08 23:53 | PC.NURSE ---
Addendum entered by Lizbet Lamb R.N. 01/09/20 05:49: Slept well all night and states pain is still only 4/10 this morning. Medicated with scheduled Oxycodone ER. Addendum entered by Lizbet Lamb R.N. 01/09/20 00:00: IV site overdue but not restarted as patient is expected to discharge today Original Note: Patient is alert and oriented with very flat affect. Breath sounds CTA with RA sat of 94%. HRR. Denies nausea. BT hypoactive but states she is passing flatus. Has not had a BM since 01/01 so medicated with MOM (refused Senna on previous shift stating it gives her crampy feeling in abdomen). Dressing to back is CDI. States pain is currently 4/10; describes as aching in back and electric in left hip. Is able move herself in bed but is very slow in mobilizing. Up to bathroom with walker and 1 assist. Denies dysuria, frequency or urgency with urination. Has chronic numbness in left leg otherwise CMS is intact. Wearing bilateral calf SCD's. Fall risk score is high and bed alarm is activated.
[2020-01-09] MEDS: OXYCODONE ER 20 MG TAB PO ×2 (05:46→14:04)
[2020-01-09] MEDS: LEVOTHYROXINE 75 MCG TABLET PO (05:46)
[2020-01-09] MEDS: LEVOTHYROXINE 100 MCG TABLET PO (05:46)
[2020-01-09 05:55] VITALS: BP 120/79; PULSE 73; RESP 18; TEMP 36.4; O2SAT 92
[2020-01-09] MEDS: OXYCODONE IR 5 MG TABLET 15 MG PO (06:55)
--- NOTE | 2020-01-09 07:53 | PM.PN.1 ---
Exam Vital Signs (past 8 hours): - 01/09/20 05:55 Temperature 97.6 F Pulse Rate 73 Respiratory Rate 18 Blood Pressure 120/79 Pulse Oximetry 92 Oxygen Delivery Method Room Air Oxygen Flow Rate 0 Objective Labs Labs: Laboratory Results - last 24 hr 01/08/20 13:25 COVID-19 PCR Negative Assessment & Plan Assessment & Plan narrative: POD#5 s/p lumbar fusion. Slow to progress with PT/OT to mobilize. Will discharge to SNF when authorized. Neuro intact on exam. No S/s of DVT. Wound/dressing clean and dry. Quality VTE Deep Vein Thrombosis/Pulmonary Embolism Present on Admission: No
[2020-01-09] MEDS: ALBUTEROL HFA 60 PUFF/8 GM INH INH (07:59)
[2020-01-09 08:00] VITALS: BP 107/71; PULSE 74; RESP 16; TEMP 36.8; O2SAT 94
[2020-01-09] MEDS: BUDESONIDE 90mcg FLEXHALER (60 PUFF/DEVICE) INH (08:00)
[2020-01-09 08:07] VITALS: PULSE 75; RESP 16; O2SAT 95
[2020-01-09] MEDS: DOCUSATE 100 MG CAPSULE PO (09:33)
[2020-01-09] MEDS: GABAPENTIN 400 MG CAPSULE 800 MG PO ×2 (09:33→14:04)
[2020-01-09] MEDS: LITHIUM 300 MG IR CAPSULE PO (09:34)
[2020-01-09] MEDS: PANTOPRAZOLE 20 MG TABLET PO (09:34)
[2020-01-09] MEDS: FUROSEMIDE 20 MG TABLET PO (09:34)
[2020-01-09] MEDS: FLUTICASONE 120 SPRAY/16 GM SPRAY.SUSP NASAL (09:36)
[2020-01-09] MEDS: estradioL 1 MG TABLET PO (09:36)
[2020-01-09] MEDS: SODIUM CHLORIDE 0.9% FLUSH 10 ML IV (09:36)
[2020-01-09] MEDS: METHYLPHENIDATE 5 MG TABLET 20 MG PO (09:39)
--- NOTE | 2020-01-09 10:00 | CM.DPC ---
DCP continued: Reviewed chart. Per notes, patient has been medically stable for discharge since Thursday01-06-2020. D/C recommendation has been SNF[facility] today. Per notes, unable to obtain authorization over the holiday w/e. Spoke with therapy re: the above. They are aware that patient either discharging to [facility] vs. home with HH. Therapy plans to work with patient today on stairs and the possibility of patient discharging home. P: Pending. LEOBARDO Bob
--- NOTE | 2020-01-09 10:34 | PC.NURSE ---
Addendum entered by Kelsey Spann R.N. 01/09/20 15:22: Report given to Paul VERA at [facility]. [facility] staff to cigar packer and picker patient at 1515, discharge to [facility] in stable condition. Addendum entered by Kelsey Spann R.N. 01/09/20 13:39: Large BM this shift. Original Note: Day shift note: Patient up out of bed to shower with OT this am, after shower and breakfast up in chair. Upon arrival this morning noted patient sleepy with slow movements, however, responds and arouses easily. Dr. Denton at bedside. Discussed PRN options for BM.
--- NOTE | 2020-01-09 10:45 | OT.IP.TRT ---
Current Diagnoses Other spondylosis with radiculopathy, lumbosacral region (01/04/20) Spinal stenosis, lumbar region without neurogenic claudication (01/04/20) Surgery Performed Operation Date: 01/04/20 11:45 Actual Procedures p L4-5 hemilaminectomy, L5-S1 TLIF w. posterior instrumentation - Diana Denton MD Occupational Therapy Treatment Note M2 OT-IP Current Condition Start: 01/05/20 18:35 Freq: Status: Active Protocol: Document 01/05/20 11:06 [facility] (Rec: 01/05/20 18:53 [facility] [id number]) Occupational Therapy Current Condition Current Condition Evaluation Date 01/05/20 Treatment Diagnosis L5-S1 TLIF, decreased mobilty and self care Diagnosis Onset Date 01/04/20 Post Operative Precautions Lumbar Precautions Log Roll,No Twisting,Limit Bending,Lifting Restriction of 10 lbs,Gait Belt above Incisional Area Weight Bearing Status Weight Bearing Status Weight Bear as Tolerated M3 OT- IP Subjective and Pain Start: 01/05/20 18:35 Freq: Status: Active Protocol: Document 01/09/20 11:25 [facility] (Rec: 01/09/20 11:52 [facility] [email or web address]) OT- Subjective Occupational Therapy Visit Type Type Progress Note Visit Start Time 09:33 Visit Stop Time 10:45 Total Visit Minutes 72 OT Pain Assessment Pain When Pain Assessed At Rest Pain Present Pain Present Pain Reported Location Left Hip Intensity 4 Scale Used Numeric (0 - 10) Management Techniques Modification of Treatment, Timing of Activity with Medications M4 OT- IP ADL's Start: 01/05/20 18:35 Freq: Status: Active Protocol: Document 01/09/20 11:25 [facility] (Rec: 01/09/20 11:52 [facility] [email or web address]) OT [id number] General Evaluation Self-Feeding Ability Independent Comments OT Self-Feeding Comments Pt completing breakfast when OT entered OT ADL-Grooming General Evaluation Grooming Ability Independent Areas Needing Assistance Face Washing Comments OT Grooming Comments Performed in shower. OT ADL-Oral Care Comments Oral Care Comments Not performed in this session OT ADL-Dressing General Eval Upper Body Dressing Ability Standby Assistance Lower Body Dressing Ability Minimal Assistance Areas Needing Assistance Underpants/Brief,Socks Assistive Devices Dressing Assistive Devices Turntable Engineer,Sock Aid Comments OT Dressing Comments Pt was able to don socks and brief using AD with min a and verbal cues with extra time. OT ADL-Toileting General Evaluation Toileting Ability Moderate Assistance Areas Needing Assistance Manage Clothing Comments OT Toileting Comments Pt performed urination seated on toilet but was not able to get to toilet prior to start of urination. Pt needed assist with brief management. OT ADL-Bathing Bathing Type Bathing Type Shower General Evaluation Bathing Ability Minimal Assistance Areas Needing Assistance Retrieving/Setting Up Items, Wash/Dry Back,Wash/Dry Lower Extremities Devices Bathing Equipment Hand Held Shower Sprayer, Shower Chair with Arms,Grab Bars Comments OT Bathing Comments Pt performed shower seated in walk in shower. Pt states the set up of the hospital shower is similar to her home shower. M5 OT- IP IADL's Start: 01/05/20 18:35 Freq: Status: Active Protocol: Document 01/05/20 11:06 [facility] (Rec: 01/05/20 18:53 [facility] [id number]) OT-Instrumental Activities of Daily Living Deficits IADL Deficits Identified Deficits Home Safety Awareness Awareness of Need for Assistance at Home Good Awareness Medication Management Medication Management Comments Pt states use of pill organizer. Money Management Money Management Caregiver Provides Assistance Meal Preparation Meal Preparation Caregiver Provides Assist Collection Support Specialist Collection Support Specialist Caregiver Provides Assist M6 OT- IP Functional Cognition Start: 01/05/20 18:35 Freq: Status: Active Protocol: Document 01/06/20 15:30 [facility] (Rec: 01/06/20 15:41 [facility] [email or web address]) Cognitive Factors Limiting Selfcare Function Cognitive Ability Level of Alertness Alert Patient Orientation Name,Age,Birthday,Month,Date, Year,Day of Week,Place, Situation Attention Span Ability Capable of Focused Attention, Capable of Sustained Attention Ability to Follow Commands Able to Follow Multi-Step Commands M7 OT- IP Mobility and Balance Start: 01/05/20 18:35 Freq: Status: Active Protocol: Document 01/09/20 11:25 [facility] (Rec: 01/09/20 11:52 [facility] [email or web address]) OT- Bed Mobility Assessment Rolling Type of Rolling Log Rolling,Roll to Left Level of Assistance Minimal Assistance,Bedrails Supine to Sit Supine to Sit Assist Minimal Assistance,Bedrails Scooting Scooting to Edge of Bed Standby Assistance OT-Transfer Assessment Sit to and From Stand Sit to and from Stand Contact Guard Assistance Transfers Transfer Ability Contact Guard Assistance, Minimal Assistance Technique Transfer Destination Bed,Bedside Commode,Chair, Shower Stall,Toilet Transfer Technique Stand Step Pivot Devices Transfer Assistive Devices Gait Belt,Front Wheeled Walker Comments Mobility Comments Pt still needing min a and extra time for bed mobility with use of GB. Pt attempted to perform without GB and assist but was unable. OT- Gait Assessment Gait Gait Assistance Required: Contact Guard Assist,Minimum Assistance Assistive Devices Assistive Device Gait Belt,Front Wheeled Walker Comments Gait Ability Comments Pt was limited with distance and speed d/t pain. OT- Balance Assessment Sitting Balance and Reactions Static Sitting Balance Ability Good Dynamic Sitting Balance Ability Fair M8 OT- IP Objective Assessments Start: 01/05/20 18:35 Freq: Status: Active Protocol: Document 01/09/20 11:25 [facility] (Rec: 01/09/20 11:52 [facility] [email or web address]) OT Sensation Assessment Edema Edema Absent M9 OT- IP Assessment and Plan Start: 01/05/20 18:35 Freq: Status: Active Protocol: Document 01/09/20 11:25 [facility] (Rec: 01/09/20 11:52 [facility] [email or web address]) OT Summary Assessment and Plan Potential Rehabilitation Potential Good Analytic Complexity at Evaluation Low Summary OT Impairments Pain,Balance,Functional Cognition,Functional Mobility, Grooming,Dressing,Toileting, Bathing,Toilet Transfers, Shower Transfers,Activity Tolerance Progress Towards Goals Slow Progress due to Pain,Slow Progress due to Medical Issues,Slow Progress due to Activity Tolerance,Slow Progress due to Cognition Assessment Summary Pt reported decreased pain at start of session from last session but required min assist for bed mobility. Pt with increased endurance with activities but still needing assist for toileting. Pt showered seated with min a and performed LB dressing with min a and use of cabinet mounter and sock aid present in her room. Pt would benefit from continued therapy services and SNF upon discharge. Pt is not safe for discharge home alone at this time. Goals Grooming Goal Independent Dressing Goal Independent Toileting Goal Independent Bathing Goal Independent Toilet Transfer Goal Independent Shower Transfer Goal Minimal Assistance Patient/Caregiver Education Goal Demonstrate Post-Op Precautions Days to Meet Goals 12 Frequency of Treatment Frequency Of Treatment Once a Day Treatment Plan OT Treatment Plan ADL Training,Functional Cognition Training,Functional Mobility,Patient/Family Education,Discharge Planning Other Treatment Recommendations and Next ADLs standing, shower, and Treatment Focus further practice with bed mobility and LB dressing. Discharge Recommendations OT Discharge Recommendations SNF Rehab Other Discharge Recommendations If home, pt would benefit from 24 hour assist as pt currently needs assist for bed mobility and toileting and is not safe without CGA for mobility. Home Equipment Needs If home pt will need BSC and would highly recommend GB be installed at toilet and in shower for pt's safety. Transportation Needs at Discharge Private Vehicle
--- NOTE | 2020-01-09 11:30 | PT.IPTN ---
Current Diagnoses Other spondylosis with radiculopathy, lumbosacral region (01/04/20) Spinal stenosis, lumbar region without neurogenic claudication (01/04/20) Surgery Performed Operation Date: 01/04/20 11:45 Actual Procedures p L4-5 hemilaminectomy, L5-S1 TLIF w. posterior instrumentation - Diana Denton MD Physical Therapy Treatment Note M2 PT-IP Current Condition Start: 01/05/20 11:42 Freq: NEEDED Status: Active Protocol: Document 01/05/20 09:05 [facility] (Rec: 01/05/20 12:01 AB [id number]) Physical Therapy Current Condition Current Condition Evaluation Date 01/05/20 Treatment Diagnosis s/p L5S1 postlat/post fusion/ lami; L4-5 hemilami; difficulty in walking Onset Date 01/04/20 Precautions Lumbar Precautions Log Roll,No Twisting,Limit Bending,Lifting Restriction of 10 lbs,Gait Belt above Incisional Area M3 PT-IP Subjective Start: 01/05/20 11:42 Freq: NEEDED Status: Active Protocol: Document 01/09/20 10:44 [facility] (Rec: 01/09/20 12:24 [facility] [id number]) Subjective Physical Therapy Visit Type Type Treatment Note Visit Start Time 10:44 Visit Stop Time 11:30 Total Visit Minutes 46 Number of FERMENTER HELPER Visits 1 Physical Therapy Visit Comments Patient Comments Pt willing to participates with therapy. Therapy Pain Assessment Pain When Pain Assessed At Rest Pain Present Pain Present Pain Reported Location Lower Back Intensity 5 Scale Used increased with stair training Pain Management Techniques Re-positioning,Timing of Activity with Medications M4 PT-IP Mobility and Gait Start: 01/05/20 11:42 Freq: NEEDED Status: Active Protocol: Document 01/09/20 10:44 [facility] (Rec: 01/09/20 12:24 [facility] [id number]) PT-Bed Mobility Assessment Rolling Type of Rolling Log Rolling Level of Assist Minimal Assistance Sit to Supine Sit to Supine Minimal Assistance,1 Person Assistance PT-Transfer Assessment Sit to and From Stand Sit to and from Stand Contact Guard Assistance, Minimal Assistance,1 Person Assistance,Use of Upper Extremities Equipment Transfer Assistive Device Gait Belt,Front Wheeled Walker Orthotic/Prosthetic Devices or Brace: No Transfers Transfer Destination Bed,Chair,Wheelchair Transfer Technique ambulated using FWW Transfer Ability Level of Assist Contact Guard Assistance,1 Person Assistance,Use of Upper Extremities Comments Mobility Comments Pt in chair upon arrival. Pt stood with Min A from the chair, pt ambulated ~35ft requiring CGA and increased time. Pt used step to gait pattern with cues for gaze and posture. Pt sat in WC CGA as pt was unable to ambulate the remainder of the way to the stairs. Pt stood with CGA from WC and walked three steps to stairs. Pt used right rail and BLAST FURNACE KEEPER up stairs requiring Mod A using step to step. Pt rode WC back to room and transferred to bed. Pt performed reverse LR with cues to go down on her side and required Min A of LE's onto bed. Pt was able to roll onto back, pt then required assist to square hips with draw sheet . Once in bed discussed with pt home needs such as BSC and bed rail to assist her with mobility. Left pt in bed with alarm on, call light and all needs within reach. Informed RN of pt's mobility. Gait Assessment Gait Gait Assistance Required: Contact Guard Assist,1 Person Assist Assistive Devices Assistive Device Gait Belt,Front Wheeled Walker Orthotic/Prosthetic Devices or Brace: No Gait Deviations General Gait Pattern Antalgic,Decreased Stride Length,Decreased Feet Clearance,Flexed Trunk,Step-to Gait Factors Limiting Gait Function Factors Limiting Gait Function Decreased Activity Tolerance, Decreased Sensation,Decreased Strength,Limited Range of Motion,Pain,Poor Balance,Poor Safety Awareness Comments Gait Comments See mobility comments. Stair Climbing Assessment Evaluation Level of Assist On Stairs Moderate Assistance,1 Person Assistance Devices Stair Climbing Assistive Devices Right Railing Technique/Endurance Stair Climbing Direction Ascend and Descend Stair Climbing Technique Step to Step Number of Steps Climbed 3 Stair Climbing Set # Repetitions (reps) 1 Comments Stair Climbing Comments Pt required Mod A for stairs using right rail and BLAST FURNACE KEEPER. M5 PT-IP Objective Assessments Start: 01/05/20 11:42 Freq: NEEDED Status: Active Protocol: Document 01/05/20 09:05 AB (Rec: 01/05/20 12:01 AB [id number]) Orientation Orientation/Cognition Level of Alertness Alert Orientation Name,Place,Situation Safety Awareness Decreased Safety Awareness Memory Description Short Term Impaired Gross Range of Motion Lower Extremity ROM Assessment Within Functional Limits Strength Lower Extremity Strength Assessment Bilaterally Impaired Hip 3-/5 Knee 3+/5 Sensation Assessment Sensation Gross Sensation Right LE Impaired,Left LE Impaired Light Touch Impaired Proprioception (Position) Impaired Sensation Description Numbness,Tingling Comments Sensation Comments numbness/tingling on B feet M6 PT-IP Treatment Start: 01/05/20 11:42 Freq: NEEDED Status: Active Protocol: Document 01/08/20 12:01 LJ (Rec: 01/08/20 13:07 LJ [id number]) Physical Therapy Treatment Education Education Provided Precautions,Safety Other Treatments Other Treatment Performed demonstrated hip hinging and scooting to edge of bed properly to adhere to precautions M7 PT-IP Assessment and Plan Start: 01/05/20 11:42 Freq: NEEDED Status: Active Protocol: Document 01/09/20 10:44 [facility] (Rec: 01/09/20 12:24 [facility] [id number]) PT Summary Assessment and Plan Potential Rehabilitation Potential Good Status of Condition at Evaluation Evolving Summary Impairments Pain,ROM,Strength,Balance, Coordination,Sensation,Tone, Cognition,Bed Mobility, Transfers,Gait,Activity Tolerance Progress Towards Goals Slow Progress due to Pain,Slow Progress due to Activity Tolerance Assessment Summary Pt requiring CGA-Min A for sit -stand and Min A for bed mobility with reverse LR. Pt required Mod A with stairs. Pt would benefit from SNF rehab but due to insurance issue pt will go home with and friends to assist. will come later today for CG training. Goals Bed Mobility Goal Standby Assistance Transfer Goal Standby Assistance,Front Wheeled Walker Gait Goal Standby Assistance,Front Wheel Walker Gait Distance 50 Other Goals up/down 6 steps using SPC+BLAST FURNACE KEEPER min A Days to Meet Goals 5 Frequency of Treatment Frequency Of Treatment Twice a Day Treatment Plan Physical Therapy Treatment Plan Bed Mobility Training,Transfer Training,Gait Training, Therapeutic Exercise,Balance Retraining,Post Op Education, Discharge Planning,Hot or Cold Pack,Neuromuscular Re-ed, Coordination Retraining,Manual Therapy Other Recommendations and Next Treatment CG training with stairs, bed Focus mobility and transfers. Recommendations To Nursing Amount of Assist Needed 1 Person Assist Discharge Recommendations PT Discharge Recommendations SNF Rehab Equipment Needed for Home Before BSC if going home Discharge Transportation Needs at Discharge Private Vehicle,Wheelchair/ Cabulance
[2020-01-09] MEDS: MAGNESIUM HYDROXIDE 30 ML UDC PO (11:33)
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
[2020-01-09 13:30] VITALS: BP 118/78; PULSE 74; RESP 16; TEMP 37.6; O2SAT 97
[2020-01-09] MEDS: OXYCODONE IR 5 MG TABLET 10 MG PO (14:33)
== END 2020-01-09 15:50 | DRG 455 ==
PROVIDERS: Admitting Provider Orthopaedic Surgery Orthopaedic Surgery of the Spine; Referring Provider Orthopaedic Surgery Orthopaedic Surgery of the Spine; Visit Provider Orthopaedic Surgery Orthopaedic Surgery of the Spine
PROC: 0SG30AJ Fusion of Lumbosacral Joint with Interbody Fusion Device, Posterior Approach, Anterior Column, Open Approach (ICD-10-PCS; principal; 2020-01-04 11:45)
DX: M47.27 Other spondylosis with radiculopathy, lumbosacral region (principal); M48.061 Spinal stenosis, lumbar region without neurogenic claudication; I10 Essential (primary) hypertension; F31.9 Bipolar disorder, unspecified; I49.3 Ventricular premature depolarization; J45.909 Unspecified asthma, uncomplicated; E03.9 Hypothyroidism, unspecified; M47.26 Other spondylosis with radiculopathy, lumbar region; M48.07 Spinal stenosis, lumbosacral region; G89.18 Other acute postprocedural pain
CPT/HCPCS: 72100; 76000; 87635; 94640; 97110; 97116; 97162; 97166; 97530; 97535; C1776; A9270; C9290; J0330; J1100; J1170; J2405; J2704; J3010

== ENCOUNTER 2022-08-11 09:27 | Inpatient (IN) | payer OTHER, SELFPAY ==
[2020-01-04 15:51] VITALS: BMI 33.1
[2022-08-05 08:21] VITALS: BMI 26.6
[2022-08-11] VITALS (11 sets, daily range): BP systolic 113–146; BP diastolic 69–83; PULSE 60–91; RESP 12–20; TEMP 36.1–37.2; O2SAT 92–100; BMI 26.6
[2022-08-11 10:16] LABS: COVID19 -Nasal RAPID Negative (Negative)
[2022-08-11] MEDS: LACTATED RINGERS 1,000 ML 84 ML IV ×3 (10:26→14:23)
--- NOTE | 2022-08-11 10:34 | PM.PREOP ---
Pre-operative Note COVID-19 COVID-19 status: Negative Result date/Date tested (Pos, Neg/Pending): 08/10/22 Criteria for continued procedure: Expected advancement of disease process, Possibility delay results in more complex future surgery or treatment, Increased loss of function, Continuing or worsening of significant or severe pain, Deterioration of the patient's condition or overall health and Delay expected to result in less-positive ultimate med/surg outcome Interval Note History & Physical reviewed/Exam performed by Physician: Yes Changes to H&P: No
[2022-08-11] MEDS: CEFAZOLIN 2 GM/100 ML PREMIX 100 ML IV (11:26)
[2022-08-11] MEDS: BUPIVACAINE LIPOSOME 266 MG/20 ML VIAL INJ (11:36)
[2022-08-11] MEDS: BUPIVACAINE 0.5% W/ EPI (PF) 30 ML VIAL INJ (11:36)
--- NOTE | 2022-08-11 11:42 | SUR.OPER ---
Prone on spine table, head in foam head support, padded chest and pelvic supports, gel pad at knees, lower legs supported by pillows; nipples, genitalia and toes free of pressure, arms secured on foam padded arm boards at <90 degrees abduction. Tape over blanket at thigh secured to table. Pt positioned per direction and supervision of Dr Denton.
--- NOTE | 2022-08-11 15:52 | P.OP_ITS ---
Operative Date/Time/Diagnoses Date of procedure: 08/11/22 Time of procedure: 11:30 Pre-op diagnosis: 1. L2-3, L3-4, L4-5 spondylisthesis 2. L2-3, L3-4, L4-5 L5-S1 spinal stenosis Post-op diagnosis: same Procedure & Clinicians Procedure: 1. L2-3 L3-4 L4-5 Postero-lateral and posterior interbody fusion 2. L2-3 L3-4 L4-5 interbody cage placement. 3. L2-3 L3-4 L4-5 decompressive laminectomy with bilateral facetecomies 4. L2-3 L3-4 L4-5, L5-S1 Posterior segmental instrumentation 5. L5-S1 posterior non-segmental hardware removal 6. L5-S1 exploration of fusion with right hemilaminectomy 7. L5-S1 posterolateral fusion 8. [place] of bone marrow from iliac crest 9. Utilization of microsurgical technique and operating microscope 10. Utilization of robotic assisted navigation Same procedure as scheduled: Yes Indications: Patient has been having chronic back pain and worsening lumbar radiculopathy and symptoms of neurogenic claudication. Patient failed multiple conservative management with worsening pain weakness and numbness in her lower extremity. Patient has been having difficulty performing activity of daily living. After discussing risks benefits of treatment options, patient elected proceed with surgery. Surgeon: Diana Denton Manager Of Internal Audit: Eleonora Maurice Click Yes if Unassisted: No Anesthesia Type: General Operative Notes Closure Type: primary Specimen(s): none sent Prosthetic devices, grafts, tissues, transplants, or devices: Globus CREO MIS screws, RIse cages Applied: catheter Estimated Blood Loss (mL): 500 Blood products transfused: none Procedure in detail: Patient was seen in the preoperative area. Risks and benefits of the surgery was discussed with the patient. Informed consent was obtained from the patient and placed in the chart. Surgical site was marked. Patient was taken to the operative room. General anesthesia was administered. Prophylactic antibiotic was given to the patient less than 30 min before the incision was made. Patient was placed into a prone position on the Triston table. Patient's back was then prepped and draped in the sterile fashion. Time-out was performed at this time. After patient was prepped and draped, patient's PSIS was palpated and marked bilaterally. Small 1 cm incision was made over the PSIS for placement of the reference probes. Two trocar was placed into the PSIS 1 on each side. The reference probe was attached to the trocar of the reference apparatus. At this time the C-arm imaging was used to confirm AP and lateral of L2, L3, L4, L5, and S1 vertebrae and merged the C-arm imaging using the [employer] robotic navigation system with the CT of the lumbar spine. After successful merging was completed and confirmed, skin marker was used to evelyne out the skin incision using the [employer] robotic arm. Bilateral incision was made at this time. Using patient's previous scar incision was made over the L2, L3 L4, L5-S1 interval on the right side. Fascia was incised in line with skin incision. Patient's previously placed hardware over the L3-4, L4-5 level was identified by dissecting down to the level the hardware using a Bovie and a Perrin. The locking caps which was removed using Vokleus screwdriver. The locking luis was then removed from the tulips of the pedicle screws using a Marium. The pedicle screws were then removed using the screwdriver. Pre templated trajectory was used and guided using the [employer] robotic navigation system for bilateral L2, L3, L4, L5, S1 pedicle screws placement. This was done by using the robotic arm to guide the high-speed bur to make a cortical entry point. Next a drill was placed also using the robotic arm and guided using the navigation system drilling partially through bilateral L2, L3, L4, L5, S1 pedicles. Next L2, L3, L4, L5, S1 pedicle screws it was pre templ ated and measured was placed onto the power cdl b driver and inserted into the pedicles bilaterally. After all 5 screws were placed C-arm imaging was taken of both AP and lateral to confirm the placement. Excellent placement of the screws were confirmed and a matched precisely with the pre planned screw placement using the navigation system. MARs retractor was inserted using [employer]Files[employer] guidence. Globus MARS retractors was placed inside the incision and docked onto the L2,L3, L4 lamina. Using microsurgical technique and operating microscope, a L2,L3, L4 laminectomy and L2-3, L3-4, L4-5 facetectomy was performed using a Kerrison rongeur. Patient was found have severe lateral recess and neural foramen stenosis which was fully decompressed after the laminectomy facetectomy. More than 75% of the facets were removed during the process of decompression rendering L2-3, L3-4, L4-5 level grossly unstable and required a fusion procedure at the same time. The disc space at L2-3, L3-4, L4-5 was identified, and a total diskectomy was performed at L2-3, L3-4, L4-5 level. The endplates were decorticated using a rasp and shaver. The total diskectomy and decortication was performed at L2-3, L3-4, L4-5 level in order to to accomplish a L2-3, L3-4, L4-5 fusion. The local bone from the laminectomy and facetectomy was saved for local bone grafting. After the total diskectomy and decortication was completed, the autograft bone graft was saved to graft placement during interbody fusion. The bone grafting material was placed into the L2-3, L3-4, L4-5 interbody space along with a expandable cage. The cage was expanded to its maximum height using the torque limiting screwdriver. The disc preparation as well as the cage insertion were also performed under navigation guidance. After the cage was placed, AP and lateral C-arm imaging was taken to confirm placement of the cage and excellent position was confirmed. The fusion mass on the right side of L5-S1 was exposed by performing a right- sided hemilaminectomy L5-S1 level. The hemilaminectomy was performed using the Kerrison rongeur to undercut the lamina as well removing additional epidural scar tissue for purpose of decompressing the epidural space. The fusion mass was explored and was found have visible motion indicating pseudoarthrosis at L5- S1 level. Globus MARS retractor was inserted and docked onto the L2-3, L3-4, L4-5, L5-S1 posterolateral gutter. Using the power drill, posterior-lateral decortication was performed at L2-3, L3-4, L4-5 L5-S1 level until bleeding cortical bone was identified. The remaining bone grafting material was placed into the L2-3, L4-5, L5-S1 posterior lateral gutter he order to accomplish posterolateral fusion at the L2-3, L3-4, L4-5, L5-S1 level. At this time the tulips were attached to the L2, L3 L4-L5 and S1 pedicle screw shanks. This was done in L2, L3 L4-L5 and S1 pedicles bilaterally. After measuring the length of the rods, they were inserted into the tulips of the pedicle screws and locked in place using locking caps and torque limiting screwdriver bilaterally. Total 10 caps and 2 titanium rods was used in order to complete the posterior instrumentation construct. After all the hardware was placed, and confirmed with AP and lateral C-arm imaging, the wound was then irrigated with sterile normal saline and packed with Ray-Jerman gauze for 3 min to accomplish hemostasis. After the gauze was removed the deep fascia was closed with #1 Vicryl suture. The subcutaneous layer was closed with 2-0 Vicryl. The skin was closed with skin levar. Patient tolerated the procedure well. There were no complications. Neuro monitoring system with motor evoked potential was used to monitor patient's neurologic status throughout entire procedure. There was no dis turbance of the neural monitoring signals throughout the case. Complications: none Post-operative Condition: stable Disposition: PACU Plan for aftercare: Admit to inpatient hospital
--- NOTE | 2022-08-11 15:53 | DI.RAD.S_ITS ---
PROCEDURE: XR LUMBAR SPINE 2-3V INDICATIONS: L2-3, L3-4, L4-5 TLIF TECHNIQUE: 3 intraoperative views of the lumbar spine were acquired. COMPARISON: [facility], , XR LUMBAR SPINE 2-3V, 01/04/2020, 12:23. FINDINGS: L2-S1 pedicle screw fixation with intervertebral body spacers. IMPRESSION: Intraoperative guidance provided. Dictated by: Home Anderson M.D. on 08/11/2022 at 16:08 Approved by: Home Anderson M.D. on 08/11/2022 at 16:10
[2022-08-11] MEDS: BACITRACIN OINT 0.9 GM PCKT 1 APPLIC TOP (16:22)
[2022-08-11] MEDS: OXYCODONE/ACETAMINOPHEN 5/325 TABLET 1 TAB PO (16:25)
[2022-08-11] MEDS: SODIUM CHLORIDE 0.9% 1,000 ML 100 ML IV (17:00)
[2022-08-11] MEDS: HYDROMORPHONE 0.5 MG INJ IV ×2 (18:10→20:50)
[2022-08-11] MEDS: hydrOXYzine pamoate 25 MG CAPSULE PO (18:10)
[2022-08-11] MEDS: TIZANIDINE 4 MG TABLET 2 MG PO (18:10)
[2022-08-11] MEDS: ONDANSETRON 4 MG/2 ML INJ IV (20:16)
[2022-08-11] MEDS: GABAPENTIN 400 MG CAPSULE 1200 MG PO (20:40)
[2022-08-11] MEDS: SENNOSIDES 8.6 MG TABLET 17.2 MG PO (20:41)
[2022-08-11] MEDS: OXYCODONE ER 10 MG TAB PO (20:42)
[2022-08-11] MEDS: diazePAM 5 MG TABLET PO (20:42)
[2022-08-11] MEDS: TRAZODONE 100 MG TABLET PO (20:44)
[2022-08-11] MEDS: OXYBUTYNIN 5 MG TABLET PO (20:45)
[2022-08-11] MEDS: carisoprodoL 350 MG TABLET PO (20:45)
[2022-08-11] MEDS: DOCUSATE 100 MG CAPSULE PO (20:46)
[2022-08-11] MEDS: LITHIUM 300 MG IR CAPSULE 600 MG PO (20:49)
[2022-08-11] MEDS: CLINDAMYCIN 600 MG/50 ML PIGGYBACK 50 MG IV (21:02)
[2022-08-11] MEDS: OXYCODONE IR 5 MG TABLET 10 MG PO (23:56)
[2022-08-12] VITALS (8 sets, daily range): BP systolic 95–109; BP diastolic 49–55; PULSE 58–74; RESP 14–18; TEMP 36.7–37.5; O2SAT 95–100
[2022-08-12] MEDS: SODIUM CHLORIDE 0.9% 1,000 ML 100 ML IV
[2022-08-12] MEDS: HYDROMORPHONE 0.5 MG INJ IV ×5 (00:05→23:25)
[2022-08-12] MEDS: hydrOXYzine pamoate 25 MG CAPSULE PO ×3 (00:06→14:06)
[2022-08-12] MEDS: ACETAMINOPHEN 325 MG TABLET 650 MG PO ×2 (02:08→16:42)
[2022-08-12] MEDS: TIZANIDINE 4 MG TABLET 2 MG PO ×3 (02:11→23:30)
[2022-08-12] MEDS: OXYCODONE IR 5 MG TABLET 10 MG PO ×5 (03:15→17:24)
[2022-08-12] MEDS: CLINDAMYCIN 600 MG/50 ML PIGGYBACK 50 MG IV (04:50)
[2022-08-12] MEDS: MAG HYDROX/ALUM/SIMETH 30 ML UDC PO (06:05)
[2022-08-12] MEDS: LEVOTHYROXINE 100 MCG TABLET PO (06:06)
--- NOTE | 2022-08-12 07:38 | PM.PNPO.1 ---
Subjective Subjective Date Patient Seen: 08/12/22 Time Patient Seen: 07:38 Interval history: Patient states she is doing ?okay?. Denies fever or chills. No nausea or vomiting. Nurse states she has been reporting being dizzy. Exam Vital Signs (past 8 hours): - 08/12/22 00:10 08/12/22 01:00 08/12/22 03:31 Temperature 98.0 F 98.7 F 98.6 F Pulse Rate 63 58 L 61 Respiratory Rate 14 18 18 Blood Pressure 105/55 L 104/55 L 109/53 L Pulse Oximetry 98 99 100 Oxygen Flow Rate 1 2 2 Oxygen Delivery Method Room Air Oxygen Flow Rate 2 Narrative Exam Narrative: 52-year-old female resting comfortably in bed in no apparent distress. Motor functions intact bilateral lower extremities. Sensation grossly intact to light touch bilateral lower extremities. Const General: cooperative, comfortable and well developed Nutritional Appearance: average body habitus Orientation: alert Resp Effort & Inspection: normal respiratory effort Objective Labs Labs: Laboratory Results - last 24 hr 08/11/22 09:36 SARS-CoV-2 (PCR) Negative [facility] Medical History ADD (attention deficit disorder) Ankylosing spondylitis Anxiety Arthritis Asthma Bipolar disorder CKD (chronic kidney disease) Collapsed lung (~2009) Depression Edema Fibromyalgia Gastroparesis GERD (gastroesophageal reflux disease) Heartburn Hiatal hernia HTN (hypertension) Hypothyroid Jerky body movements Kidney stones Migraines Nutcracker esophagus Occipital bone fracture (06/17/19) Palpitations Spinal stenosis Spinal stenosis of lumbar region with radiculopathy Syncopal episodes Trauma (06/17/19) Surgical History History of bladder surgery History of History of ear surgery History of lumbar fusion (01/04/20) History of surgery History of surgery (~02/2020) Hx of cervical spinal arthrodesis Hx of cervical spinal arthrodesis Hx of cholecystectomy Hx of foot surgery Hx of lithotripsy Hx of shoulder surgery Hx of sinus surgery S/P complete hysterectomy Social History household members: spouse Smoking Status: Never smoker alcohol intake: current Assessment & Plan Post-op Postoperative Procedures: Procedures Operation Date: 08/11/22 10:45 Actual Procedure Side Surgeon p L2-3, L3-4, L4-5 TLIF, L2-S1 PSF w. posterior instrumentation- Robot Not Applicable Diana Denton MD Postoperative day: 1 Postoperative status: doing well Postoperative status narrative: Stable status post lumbar fusion Postoperative plan: routine post-op care and see orders Postoperative plan narrative: Physical therapy, mobilize as tolerated, limit bending, twisting, lifting Multimodal pain management Repeat H&H this morning Disposition home in 1-2 days Quality VTE Deep Vein Thrombosis/Pulmonary Embolism Present on Admission: No
[2022-08-12 08:28] LABS: Hematocrit 28.6 % (36-46); Hemoglobin 9.6 g/dL (12.0-16.0)
[2022-08-12] MEDS: GABAPENTIN 400 MG CAPSULE 1200 MG PO ×3 (08:48→20:50)
[2022-08-12] MEDS: OXYCODONE ER 10 MG TAB PO ×2 (08:49→20:50)
[2022-08-12] MEDS: DOCUSATE 100 MG CAPSULE PO ×3 (08:49→20:51)
[2022-08-12] MEDS: LITHIUM 300 MG IR CAPSULE PO (08:49)
[2022-08-12] MEDS: ONDANSETRON 4 MG/2 ML INJ IV (08:50)
[2022-08-12] MEDS: estradioL 1 MG TABLET PO (08:50)
[2022-08-12] MEDS: ARIPiprazole 10 MG TABLET PO (08:50)
[2022-08-12] MEDS: FLUTICASONE 120 SPRAY/16 GM SPRAY.SUSP NASAL (08:50)
--- NOTE | 2022-08-12 09:00 | PT.IIE ---
Current Diagnoses Spondylolisthesis, lumbar region (08/11/22) Spinal stenosis, lumbar region with neurogenic claudication (08/11/22) Surgery Performed Operation Date: 08/11/22 10:45 Actual Procedures p L2-3, L3-4, L4-5 TLIF, L2-S1 PSF w. posterior instrumentation- Robot(Not Applicable) - Diana Denton MD Surgical History (Last Reviewed 08/12/22 @ 07:39 by Hakan Mackenzie PA-C) History of bladder surgery History of History of ear surgery History of lumbar fusion (01/04/20) History of surgery History of surgery (~02/2020) Hx of cervical spinal arthrodesis Hx of cervical spinal arthrodesis Hx of cholecystectomy Hx of foot surgery Hx of lithotripsy Hx of shoulder surgery Hx of sinus surgery S/P complete hysterectomy Medical History (Last Reviewed 08/12/22 @ 07:39 by Hakan Mackenzie PA-C) ADD (attention deficit disorder) Ankylosing spondylitis Anxiety Arthritis Asthma Bipolar disorder CKD (chronic kidney disease) Collapsed lung (~2009) Depression Edema Fibromyalgia Gastroparesis GERD (gastroesophageal reflux disease) Heartburn Hiatal hernia HTN (hypertension) Hypothyroid Jerky body movements Kidney stones Migraines Nutcracker esophagus Occipital bone fracture (06/17/19) Palpitations Spinal stenosis Spinal stenosis of lumbar region with radiculopathy Syncopal episodes Trauma (06/17/19) Physical Therapy Inpatient Evaluation/Re-Eval M1 PT/OT-IP Prior Functional Status Start: 08/12/22 10:19 Freq: NEEDED Status: Active Protocol: Document 08/12/22 09:30 [facility] (Rec: 08/12/22 10:33 [facility] [id number]) Medical Review Prior Functional Status Communication indepedent Mobility and Gait Pt states able to walk in house without a device. Activities of Daily Living and IADL's Pt states needed assist for socks and shoes at times. Prior Functional Level (Other details) Pt's works and not able to assist. Social History Household Members spouse Living Arrangements Apartment/Condo Number of Floors (Floors) One Floor Number of Stairs To Enter/Railing? 2 deep steps with no rail and another step to enter the apartment. Home Environment Standard Height Toilet,Tub/ Shower Home Equipment Front Wheel Walker,Four Wheel Walker,Straight Cane,Hand Held Shower,Administrative Volunteer Additional Social History Comment Pt states has a high adjustable bed and that her just purchased her an orthopedic air mattress. M2 PT-IP Current Condition Start: 08/12/22 11:19 Freq: NEEDED Status: Active Protocol: Document 08/12/22 09:00 [facility] (Rec: 08/12/22 11:41 [facility] [id number]) Physical Therapy Current Condition Current Condition Evaluation Date 08/12/22 Treatment Diagnosis L2-3, 3-4, 4-5 post fusion M3 PT-IP Subjective Start: 08/12/22 11:19 Freq: NEEDED Status: Active Protocol: Document 08/12/22 09:00 [facility] (Rec: 08/12/22 11:41 [facility] [id number]) Subjective Physical Therapy Visit Type Type Initial Evaluation Visit Start Time 08:25 Visit Stop Time 09:00 Total Visit Minutes 35 Number of SAP BODS DEVELOPER Visits 0 Therapy Pain Assessment Pain When Pain Assessed During Mobility Pain Present Pain Present Pain Reported Location Lower Back Pain Management Techniques Re-positioning,Timing of Activity with Medications M4 PT-IP Mobility and Gait Start: 08/12/22 11:19 Freq: NEEDED Status: Active Protocol: Document 08/12/22 09:00 [facility] (Rec: 08/12/22 11:41 [facility] [id number]) PT-Bed Mobility Assessment Rolling Type of Rolling Log Rolling,Roll to Left Level of Assist Minimal Assistance Supine to Sit Supine to Sit Maximum Assistance,Bedrails Scooting Scooting to Edge of Bed Moderate Assistance PT-Transfer Assessment Sit to and From Stand Sit to and from Stand Minimal Assistance,Use of Upper Extremities Equipment Transfer Assistive Device Gait Belt,Front Wheeled Walker Transfers Transfer Destination Chair Transfer Technique Stand Step Pivot Transfer Ability Level of Assist Minimal Assistance Comments Mobility Comments pt partially L SL min A to get fully s/l w/use of rail. s/l to sit w/max A with max cues. scoot to JANES w/max A, min a to sit EOB, sit to stand to FWW min A (supine BP 99/53; seated 127/75); Pt felt could only transfer and did transfer w/ min A and FWW and cues for posture. Pt propped in chair and left w/call light in reach & RN in room Gait Assessment Gait Gait Assistance Required: Minimum Assistance Distance (Feet) 2 Assistive Devices Assistive Device Gait Belt,Front Wheeled Walker Gait Deviations General Gait Pattern Antalgic,Decreased Stride Length,Decreased Feet Clearance Factors Limiting Gait Function Factors Limiting Gait Function Decreased Strength,Pain,Poor Balance PT-Balance Assessment Sitting Balance and Reactions Static Sitting Balance Ability Poor Dynamic Sitting Balance Ability Poor Standing Balance and Reactions Static Standing Balance Ability Poor Dynamic Standing Balance Ability Poor Device Used FWW M5 PT-IP Objective Assessments Start: 08/12/22 11:19 Freq: NEEDED Status: Active Protocol: Document 08/12/22 09:00 [facility] (Rec: 08/12/22 11:41 [facility] [id number]) Orientation Orientation/Cognition Level of Alertness Alert Language Function Ability No Deficits Noted Safety Awareness Understands Safety Issues Memory Description No Deficits Noted Strength Lower Extremity Strength Assessment Bilaterally Impaired Hip grossly 3+/5 BLEs M6 PT-IP Treatment Start: 08/12/22 11:19 Freq: NEEDED Status: Active Protocol: Document 08/12/22 09:00 [facility] (Rec: 08/12/22 11:41 [facility] [id number]) Physical Therapy Treatment Exercises Exercises Ankle Pumps Education Education Provided Precautions,Weight Bearing Status,Post-Op Packet,Safety M7 PT-IP Assessment and Plan Start: 08/12/22 11:19 Freq: NEEDED Status: Active Protocol: Document 08/12/22 09:00 [facility] (Rec: 08/12/22 11:41 [facility] [id number]) PT Summary Assessment and Plan Potential Rehabilitation Potential Good Status of Condition at Evaluation Evolving Summary Impairments Pain,ROM,Strength,Balance,Bed Mobility,Transfers,Gait, Activity Tolerance Assessment Summary pt presents day 1 s/p L2-3, 3- 4, 4-5 with significant pain and dec mobility. She required assist w/all activity at this time d/t pain and weakness. She will not have much help at home d/t unable to take time off, so would be home alone. At this time d/t dec mobility, pt would be a fall risk to be home alone so would benefit from SNF rehab before returning home. Goals Bed Mobility Goal Standby Assistance Transfer Goal Standby Assistance Gait Goal Standby Assistance,Four Wheel Walker Gait Distance 150ft Other Goals up/down stairs 3 w/FWW w/SBA Days to Meet Goals 8 Frequency of Treatment Frequency Of Treatment Twice a Day Precautions Lumbar Precautions Log Roll,No Twisting,Limit Bending,Lifting Restriction of 10 lbs,Gait Belt above Incisional Area Weight Bearing Status Weight Bearing Status Weight Bear as Tolerated Recommendations To Nursing Amount of Assist Needed 1 Person Assist Discharge Recommendations PT Discharge Recommendations SNF Rehab Transportation Needs at Discharge Wheelchair/Cabulance
[2022-08-12] MEDS: ALBUTEROL 2.5 MG/3 ML NEB (ADULT) INH (09:11)
[2022-08-12] MEDS: BUDESONIDE 0.5 MG/2 ML NEB INH ×2 (09:11→19:44)
--- NOTE | 2022-08-12 10:11 | OT.IP.EVAL ---
Current Diagnoses Spondylolisthesis, lumbar region (08/11/22) Spinal stenosis, lumbar region with neurogenic claudication (08/11/22) Surgery Performed Operation Date: 08/11/22 10:45 Actual Procedures p L2-3, L3-4, L4-5 TLIF, L2-S1 PSF w. posterior instrumentation- Robot(Not Applicable) - Diana Denton MD Past Medical History (Last Reviewed 08/12/22 @ 07:39 by Hakan Mackenzie PA-C) ADD (attention deficit disorder) Ankylosing spondylitis Anxiety Arthritis Asthma Bipolar disorder CKD (chronic kidney disease) Collapsed lung (~2009) Depression Edema Fibromyalgia Gastroparesis GERD (gastroesophageal reflux disease) Heartburn Hiatal hernia HTN (hypertension) Hypothyroid Jerky body movements Kidney stones Migraines Nutcracker esophagus Occipital bone fracture (06/17/19) Palpitations Spinal stenosis Spinal stenosis of lumbar region with radiculopathy Syncopal episodes Trauma (06/17/19) Surgical History (Last Reviewed 08/12/22 @ 07:39 by Hakan Mackenzie PA-C) History of bladder surgery History of History of ear surgery History of lumbar fusion (01/04/20) History of surgery History of surgery (~02/2020) Hx of cervical spinal arthrodesis Hx of cervical spinal arthrodesis Hx of cholecystectomy Hx of foot surgery Hx of lithotripsy Hx of shoulder surgery Hx of sinus surgery S/P complete hysterectomy Occupational Therapy Inpatient Evaluation/Re-Eval M1 PT/OT-IP Prior Functional Status Start: 08/12/22 10:19 Freq: NEEDED Status: Active Protocol: Document 08/12/22 09:30 [facility] (Rec: 08/12/22 10:33 [facility] [id number]) Medical Review Prior Functional Status Communication indepedent Mobility and Gait Pt states able to walk in th house without a device. Activities of Daily Living and IADL's Pt states needed assist for socks and shoes at times. Prior Functional Level (Other details) Pt's works and not able to assist. Social History Household Members spouse Living Arrangements Apartment/Condo Number of Floors (Floors) One Floor Number of Stairs To Enter/Railing? 2 deep steps with no rail and another step to enter the apartment. Home Environment Standard Height Toilet,Tub/ Shower Home Equipment Front Wheel Walker,Four Wheel Walker,Straight Cane,Hand Held Shower,Motor Equipment Commanding Officer Additional Social History Comment Pt states has a high adjustable bed and that her just purchased her an orthopedic air mattress. M2 OT-IP Current Condition Start: 08/12/22 10:19 Freq: Status: Active Protocol: Document 08/12/22 09:30 [facility] (Rec: 08/12/22 10:33 [facility] [id number]) Occupational Therapy Current Condition Current Condition Evaluation Date 08/12/22 Treatment Diagnosis S/p L2-3, L3-4, L4-5 TLIF, L2- 5 PSF with post inst Diagnosis Onset Date 08/11/22 M3 OT- IP Subjective and Pain Start: 08/12/22 10:19 Freq: Status: Active Protocol: Document 08/12/22 09:30 [facility] (Rec: 08/12/22 10:33 [facility] [id number]) OT- Subjective Occupational Therapy Visit Type Type Initial Evaluation Visit Start Time 09:30 Visit Stop Time 10:11 Total Visit Minutes 41 Occupational Therapy Visit Comments Patient Comments Pt wanting to get back to bed. Pt's mother came in during the end of OT eval. Patient/Caregiver Goals TO go to skilled rehab. OT Pain Assessment Pain When Pain Assessed At Rest Pain Present Pain Present Pain Reported Location Left Hip Intensity 4 Scale Used Numeric (0 - 10) M4 OT- IP ADL's Start: 08/12/22 10:19 Freq: Status: Active Protocol: Document 08/12/22 09:30 [facility] (Rec: 08/12/22 10:33 [facility] [id number]) OT RFW-Ztlm-Latecir Comments OT Self-Feeding Comments NOt at meal time. OT ADL-Grooming Comments OT Grooming Comments Pt too tired to perform. OT ADL-Oral Care Comments Oral Care Comments Pt refusing at this time, has dentures. OT ADL-Dressing General Eval Lower Body Dressing Ability Maximum Assistance Areas Needing Assistance Socks OT ADL-Toileting General Evaluation Toileting Ability Total Assistance Devices Toileting Assistive Devices Urinal Comments OT Toileting Comments Hodgson in place OT ADL-Bathing Comments OT Bathing Comments Pt states not sure if her tub in big enough to have a tub bench for showering needs. Pt too tired to attempt at this time. M5 OT- IP IADL's Start: 08/12/22 10:19 Freq: Status: Active Protocol: Document 08/12/22 09:30 [facility] (Rec: 08/12/22 10:33 [facility] [id number]) OT-Instrumental Activities of Daily Living Deficits IADL Deficits Identified Deficits Home Safety Awareness Awareness of Need for Assistance at Home Good Awareness Home Safety Comments Pt is a bit drowsy at this time. Medication Management Medication Management Comments Pt would benefit from assist at this time due to being drowsy. Money Management Money Management Comments Pt would benefit from assist at this time due to being drowsy. Meal Preparation Meal Preparation Caregiver Provides Assist Self Contained Behavior Unit Teacher Self Contained Behavior Unit Teacher Caregiver Provides Assist M6 OT- IP Functional Cognition Start: 08/12/22 10:19 Freq: Status: Active Protocol: Document 08/12/22 09:30 [facility] (Rec: 08/12/22 10:33 [facility] [id number]) Cognitive Factors Limiting Selfcare Function Cognitive Ability Level of Alertness Drowsy Patient Orientation Name,Situation Attention Span Ability Capable of Focused Attention, Capable of Sustained Attention Ability to Follow Commands Able to Follow One Step Commands with Increased Time, Able to Follow One Step Commands with Repetition Safety Awareness Decreased Recall of Precautions,Decreased Ability to Apply Precautions Cognitive Comments Cognitive Assessment Comments Pt is very drowsy at this time and having difficulty initially to state her back precautions. Pt needing assist to follow her back precautions during bed mobility needs. OT- Vision and Hearing OT- Hearing Assessment OT- Hearing Assessment WFL M7 OT- IP Mobility and Balance Start: 08/12/22 10:19 Freq: Status: Active Protocol: Document 08/12/22 09:30 [facility] (Rec: 08/12/22 10:33 [facility] [id number]) OT- Bed Mobility Assessment Rolling Level of Assistance Moderate Assistance,1 Person Assistance Sit to Supine Sit to Supine Assist Maximum Assistance,1 Person Assistance OT-Transfer Assessment Sit to and From Stand Sit to and from Stand Maximum Assistance Transfers Transfer Ability Moderate Assistance,1 Person Assistance Technique Transfer Destination Bed,Chair Transfer Technique Stand Step Pivot Devices Transfer Assistive Devices Gait Belt,Front Wheeled Walker Comments Mobility Comments MAXA x1 to stand and vc to push up from the armrests of the recliner versus pull up on the FWW. Pt MODA with FWW to help with her balance and guide the FWW. BP sitting 99/53 and 99/60 amd after transfer 109/53 O2 on 2L at 100%. OT- Gait Assessment Comments Gait Ability Comments Transfer only at this time. OT- Balance Assessment Sitting Balance and Reactions Static Sitting Balance Ability Poor Dynamic Sitting Balance Ability Poor Standing Balance and Reactions Static Standing Balance Ability Poor Dynamic Standing Balance Ability Poor Comments Other Balance Tests/Deviations/Treatment Pt heavily leans to the left : while seated, pt lateral flexiong to the left with her neck. M8 OT- IP Objective Assessments Start: 08/12/22 10:19 Freq: Status: Active Protocol: Document 08/12/22 09:30 [facility] (Rec: 08/12/22 10:33 [facility] [id number]) OT Gross Range of Motion Upper Extremity Range of Motion Assessment Bilaterally Impaired ROM Impairments LUE more impaired than RUE OT Strength Upper Extremity Strength Assessment Bilaterally Impaired M9 OT- IP Assessment and Plan Start: 08/12/22 10:19 Freq: Status: Active Protocol: Document 08/12/22 09:30 [facility] (Rec: 08/12/22 10:33 [facility] [id number]) OT Summary Assessment and Plan Potential Rehabilitation Potential Good Analytic Complexity at Evaluation Moderate Summary OT Impairments Pain,Range of Motion,Strength, Balance,Functional Cognition, Functional Mobility,Grooming, Dressing,Toileting,Bathing, Toilet Transfers,Shower Transfers,Activity Tolerance Progress Towards Goals Slow Progress due to Pain,Slow Progress due to Medical Issues,Slow Progress due to Activity Tolerance,Slow Progress due to Cognition Assessment Summary Pt MOD complexity and main barriers are steps, needing extensive assist for bed mobility and transfers at this time. Pt heavily leans to the left and posteriorly as well on her feet. Pt will benefit from skilled rehab at this time prior to going home. Goals Self-Feeding Goal Independent Grooming Goal Independent Dressing Goal Minimal Assistance Toileting Goal Independent Bathing Goal Standby Assistance Toilet Transfer Goal Independent Shower Transfer Goal Independent Days to Meet Goals 15 Frequency of Treatment Frequency Of Treatment Once a Day Treatment Plan OT Treatment Plan ADL Training,Functional Cognition Training,Functional Mobility,Patient/Family Education,Discharge Planning Other Treatment Recommendations and Next Stand with FWW in front of the Treatment Focus sink for ADl needs. Discharge Recommendations OT Discharge Recommendations SNF Rehab Transportation Needs at Discharge Wheelchair/Cabulance
[2022-08-12] MEDS: METHYLPHENIDATE 5 MG TABLET 20 MG PO ×2 (10:33→16:43)
--- NOTE | 2022-08-12 14:24 | CM.DANOTE ---
DCP: Assessment: Pt is a 52 yo female who arrived via POV and admitted under the care of Orthopedic team for pre-planned TLIF of L2-3 L3-4 L4-5. Pt has hx of spondylisthesis and spinal stenosis. This DCP met with pt in her room. She is A+ox4 and able to make her needs known. Noted to have increased fatigue r/t recent surgery and need for pain control. Introduced self and role. Pt reports that she drives at baseline and does not use DME. She confirms that she lives in [place] with her who works. Plan: Will continue to follow for pt needs. Pt is in agreement to set up SNF or HH. Will review with tablet when pt is medically stable. PT/OT pending. Alina Coffey RN Case Manager Discharge Planning/Care Management CM Discharge Assessment Start: 08/12/22 14:13 Freq: Status: Active Protocol: Document 08/12/22 08:00 [facility] (Rec: 08/12/22 14:22 [facility] [id number]) Discharge Planning Assessment Assigned Weed Thinner Alina Coffey RN Case Manager Advance Directives? Yes Advance Directives on File Yes History Provided By Patient Has Patient been admitted in last 30 No days? Prior Living Arrangements Apartment/Condo Household Members spouse Type of transporation used prior to Drives own vehicle admit Independent with ADL's Yes Is patient alert and oriented? Yes Caregiver for Another No Patient/Family Preference Shelter Facility Barriers to Discharge Yes Comment Slow to recover, spouse works fulltime. Pt reports that she has tremors at baseline. Discharge Plan Shelter Facility Additional Comment Will discuss [facility] option with pt more in detail. Following care needs, awaiting pt/ot assessment when pt is medically stable. Whiteboard Updated in Patient Room with Yes name and ext. # of Weed Thinner Review Status In Process Next Review Type Continued Stay Review Document 08/12/22 14:13 [facility] (Rec: 08/12/22 14:22 [facility] [id number]) Discharge Planning Assessment Advance Directives? Yes Advance Directives on File Yes History Provided By Patient Prior Living Arrangements Apartment/Condo Household Members spouse Patient/Family Preference Shelter Facility Comment Slow to recover, spouse works fulltime Discharge Plan Shelter Facility Referrals Initiated Shelter Pre-Anesthesia Assessment Start: 08/05/22 08:21 Freq: Status: Active Protocol: Document 08/05/22 08:21 [facility] (Rec: 08/05/22 09:33 [facility] [id number]) Pre-Anesthesia Assessment Patient Information Reviewed Via Phone Assessment Assessment Completed With Patient Comment Labs/EKG done 08/04/22 @ [facility] per pt, not here Primary Care Provider Cesar Mackenzie Seen Specialist in Last 12 Months Yes Specialist Seen Orthopedist,Other Primary Language Hungarian Preferred Language Hungarian Maid Supervisor Required No Height 162.56 cm Weight 70.307 kg Body Mass Index (BMI) 26.6 Hearing Ability Normal Visual Assist Contacts,Glasses Dentition Type Full- Upper & Lower Barriers to Learning None Comment Pt denies any difficulties Hx Anesthesia Reactions No Hx Family Anesthesia Reaction No Hx Malignant Hyperthermia No Hx Blood Transfusions No: Will not accept blood products Jehovah Witness Anesthesia Review Requested No Rn Lab No alcohol intake current alcohol intake frequency holidays/special occasions only Smoking Status Never smoker Substance Use Type does not use Pain Present Pain Reported Musculoskeletal Symptoms Abnormal Gait,Back Pain, Difficulty Walking,Joint Pain, Radiating Pain into Limb History of Falling (Recent or History of No ) Patient is completely paralyzed or No completely immobile Mental Status Oriented to own ability Is patient on oxygen? No Does patient have BENÍTEZ/SOB Yes: r/t Asthma Hx Sleep Apnea No CPAP/BIPAP use not prescribed Currently Taking a Beta Elieser No Can You Climb a Flight of Stairs Without No SOB Hx Chest Pain Yes Hx SOB Yes Hx Syncope or Dizziness Yes Anti-Coagulant Therapy No Has a Control Systems Technician No Cardiac Testing No Hx Pacemaker/ICD No Pacemaker Rep Required? No Cardiac Clearance Received Not Applicable Diet Type At Home Regular Dysphagia No Gastrointestinal Symptoms Constipation Bladder Pattern Urgency Urinary Catheter Present No Hx Urinary Self Catheterization No Diabetes No Patient No Lactating No Hx Drug Resistant Organism No Presence of External or Internal Medical Yes: Cervical & lumbar Devices hardware Have you had any close contact with No someone diagnosed with COVID-19? Received a COVID vaccine? Yes Received all doses? Yes Marital Status Lives With spouse Current Living Arrangements Apartment/Condo Support System Spouse Does the Patient Have Assistance After Yes: Pt will be alone during Surgery the day, works Patient Discharge Plan Description Return Home Comment Pt advised 3 day length of stay per surgeon Feels Safe in Current Environment Yes Been Physically Hurt or Threatened By a No Person in Current Environment Do you have thoughts of harming yourself None or others? Are you currently considering suicide? No Do you have a plan to hurt yourself or No Plan others? Do You Have Any Spiritual Beliefs That Yes: WILL NOT ACCEPT ANY BLOOD May Affect Your HC Choices? PRODUCTS-JEHOVAH WITNESS Do You Have Any Cultural Practices That No May Affect Your HC Choices? Who Can We Speak to About Patient's Care Family, friends Identifying Code for Release of Patient Declines to issue Information Health Care Proxy/Next of Kin Enrrique () Health Care Proxy Emergency Contact Name Enrrique () Emergency Contact Advance Directives? Yes Advance Directives on File Yes Power of Processing Operator No PAC Instructions Durable medical equipment, Medications to take/avoid, Nasal antibiotic,No ETOH/ petroleum product on skin DOS, NPO,Post-op transportation, Sensory aids,Sturdy shoes/ comfortable clothes,Do not bring valuables and remove jewelry
--- NOTE | 2022-08-12 16:14 | PT.IPTN ---
Current Diagnoses Spondylolisthesis, lumbar region (08/11/22) Spinal stenosis, lumbar region with neurogenic claudication (08/11/22) Surgery Performed Operation Date: 08/11/22 10:45 Actual Procedures p L2-3, L3-4, L4-5 TLIF, L2-S1 PSF w. posterior instrumentation- Robot(Not Applicable) - Diana Denton MD Physical Therapy Treatment Note M2 PT-IP Current Condition Start: 08/12/22 11:19 Freq: NEEDED Status: Active Protocol: Document 08/12/22 09:00 [facility] (Rec: 08/12/22 11:41 [facility] [id number]) Physical Therapy Current Condition Current Condition Evaluation Date 08/12/22 Treatment Diagnosis L2-3, 3-4, 4-5 post fusion M3 PT-IP Subjective Start: 08/12/22 11:19 Freq: NEEDED Status: Active Protocol: Document 08/12/22 15:54 [facility] (Rec: 08/12/22 16:14 [facility] [id number]) Subjective Physical Therapy Visit Type Type Treatment Note Visit Start Time 15:32 Visit Stop Time 15:51 Total Visit Minutes 19 Number of FITTER PLACER Visits 1 Physical Therapy Visit Comments Patient Comments Willing to work with PT Therapy Pain Assessment Pain When Pain Assessed During Mobility Pain Present Pain Present Pain Reported Location Lower Back Pain Management Techniques Re-positioning,Timing of Activity with Medications M4 PT-IP Mobility and Gait Start: 08/12/22 11:19 Freq: NEEDED Status: Active Protocol: Document 08/12/22 15:54 [facility] (Rec: 08/12/22 16:14 [facility] [id number]) PT-Bed Mobility Assessment Rolling Type of Rolling Log Rolling,Roll to Left Level of Assist Minimal Assistance Supine to Sit Supine to Sit Maximum Assistance,1 Person Assistance,Bedrails Scooting Scooting to Edge of Bed Moderate Assistance PT-Transfer Assessment Sit to and From Stand Sit to and from Stand Minimal Assistance,Use of Upper Extremities Equipment Transfer Assistive Device Gait Belt,Front Wheeled Walker Transfers Transfer Destination Chair Transfer Technique ambulated Transfer Ability Level of Assist Minimal Assistance Comments Mobility Comments Pt lying in bed upon arrival. States she is in pain but wants to attempt to get up. Able to recall precautions. Pt logrolled to left MaxA using bed pads to roll pt. SL>sit ModA with bedrails. MaxA to scoot to side of bed to put feet on floor. Once seated squarely on bed, pt able to maintain seated position CGA with hh on braced FWW. Luis F to stand using walker to pull up . Pt ambulated toward window ~ 5' then requested to sit in chair. Backed up several steps to chair then sat with cues to use UEs to lower self down. Pt carefully sat down. Nsg entered room and assisted this therapist with moving pt to back of chair. Pt reclined and given call light and warm blankets. Pt left in room with nursing taking vitals. Gait Assessment Gait Gait Assistance Required: Minimum Assistance Distance (Feet) 8 Assistive Devices Assistive Device Gait Belt,Front Wheeled Walker Gait Deviations General Gait Pattern Antalgic,Decreased Stride Length,Decreased Feet Clearance Factors Limiting Gait Function Factors Limiting Gait Function Decreased Strength,Pain,Poor Balance Comments Gait Comments pt ambulates with left side lean and flexed trunk. M5 PT-IP Objective Assessments Start: 08/12/22 11:19 Freq: NEEDED Status: Active Protocol: Document 08/12/22 09:00 [facility] (Rec: 08/12/22 11:41 [facility] [id number]) Orientation Orientation/Cognition Level of Alertness Alert Language Function Ability No Deficits Noted Safety Awareness Understands Safety Issues Memory Description No Deficits Noted Strength Lower Extremity Strength Assessment Bilaterally Impaired Hip grossly 3+/5 BLEs M6 PT-IP Treatment Start: 08/12/22 11:19 Freq: NEEDED Status: Active Protocol: Document 08/12/22 15:54 [facility] (Rec: 08/12/22 16:14 [facility] [id number]) Physical Therapy Treatment Education Education Provided Precautions,Weight Bearing Status,Post-Op Packet,Safety M7 PT-IP Assessment and Plan Start: 08/12/22 11:19 Freq: NEEDED Status: Active Protocol: Document 08/12/22 15:54 [facility] (Rec: 08/12/22 16:14 [facility] [id number]) PT Summary Assessment and Plan Potential Rehabilitation Potential Good Status of Condition at Evaluation Evolving Summary Impairments Pain,ROM,Strength,Balance,Bed Mobility,Transfers,Gait, Activity Tolerance Assessment Summary Pt requires assist w/all activity at this time d/t pain and weakness. She will need SNF rehab before returning home to recover strength and functional mobility Goals Bed Mobility Goal Standby Assistance Transfer Goal Standby Assistance Gait Goal Standby Assistance,Four Wheel Walker Gait Distance 150ft Other Goals up/down stairs 3 w/FWW w/SBA Days to Meet Goals 8 Frequency of Treatment Frequency Of Treatment Twice a Day Treatment Plan Other Recommendations and Next Treatment Progress bed mobilty, Focus transfers, and gait as appropriate. Monitor vitals Precautions Lumbar Precautions Log Roll,No Twisting,Limit Bending,Lifting Restriction of 10 lbs,Gait Belt above Incisional Area Weight Bearing Status Weight Bearing Status Weight Bear as Tolerated Recommendations To Nursing Amount of Assist Needed 1 Person Assist Discharge Recommendations PT Discharge Recommendations SNF Rehab
[2022-08-12] MEDS: TRAZODONE 100 MG TABLET PO (20:50)
[2022-08-12] MEDS: carisoprodoL 350 MG TABLET PO (20:50)
[2022-08-12] MEDS: SENNOSIDES 8.6 MG TABLET 17.2 MG PO (20:50)
[2022-08-12] MEDS: OXYBUTYNIN 5 MG TABLET PO (20:50)
[2022-08-12] MEDS: diazePAM 5 MG TABLET PO (20:51)
[2022-08-12] MEDS: LITHIUM 300 MG IR CAPSULE 600 MG PO (20:51)
[2022-08-13] VITALS (8 sets, daily range): BP systolic 111–135; BP diastolic 62–71; PULSE 67–84; RESP 15–20; TEMP 37.4–37.6; O2SAT 95–99
[2022-08-13] MEDS: OXYCODONE IR 5 MG TABLET 10 MG PO ×5 (02:13→17:51)
[2022-08-13] MEDS: HYDROMORPHONE 0.5 MG INJ IV (04:09)
[2022-08-13] MEDS: ACETAMINOPHEN 325 MG TABLET 650 MG PO ×2 (04:10→14:14)
[2022-08-13] MEDS: LEVOTHYROXINE 100 MCG TABLET PO (06:13)
--- NOTE | 2022-08-13 07:29 | PM.PNPO.1 ---
Subjective Subjective Date Patient Seen: 08/13/22 Time Patient Seen: 06:30 Interval history: Patient is sleeping comfortably in bed this morning. Difficult to arouse and unable to hold a conversation, nods off frequently. Answers some questions with one-word mumbled answers. States she has been ?miserable? since surgery. Exam Vital Signs (past 8 hours): - 08/13/22 00:00 08/13/22 04:10 08/13/22 04:00 Temperature 99.6 F 99.7 F H 99.7 F H Pulse Rate 76 84 Respiratory Rate 17 15 Blood Pressure 135/71 122/67 Pulse Oximetry 98 97 Oxygen Delivery Method Room Air Oxygen Flow Rate 0 Narrative Exam Narrative: Oriented to place and situation. Somnolent. Strength 3+ out of 5, unable to adequately examine due to somnolence. Bilateral calves soft, compressible, nontender to palpation with no palpable cords or masses. Unable to assess intraoperative dressing at this time. Objective Labs 08/12/22 08:00 Labs: Laboratory Results - last 24 hr 08/12/22 08:00 Hgb 9.6 L Hct 28.6 L PFSH Medical History ADD (attention deficit disorder) Ankylosing spondylitis Anxiety Arthritis Asthma Bipolar disorder CKD (chronic kidney disease) Collapsed lung (~2009) Depression Edema Fibromyalgia Gastroparesis GERD (gastroesophageal reflux disease) Heartburn Hiatal hernia HTN (hypertension) Hypothyroid Jerky body movements Kidney stones Migraines Nutcracker esophagus Occipital bone fracture (06/17/19) Palpitations Spinal stenosis Spinal stenosis of lumbar region with radiculopathy Syncopal episodes Trauma (06/17/19) Surgical History History of bladder surgery History of History of ear surgery History of lumbar fusion (01/04/20) History of surgery History of surgery (~02/2020) Hx of cervical spinal arthrodesis Hx of cervical spinal arthrodesis Hx of cholecystectomy Hx of foot surgery Hx of lithotripsy Hx of shoulder surgery Hx of sinus surgery S/P complete hysterectomy Social History household members: spouse Smoking Status: Never smoker alcohol intake: current Assessment & Plan Post-op Postoperative Procedures: Procedures Operation Date: 08/11/22 10:45 Actual Procedure Side Surgeon p L2-3, L3-4, L4-5 TLIF, L2-S1 PSF w. posterior instrumentation- Robot Not Applicable Diana Denton MD Postoperative day: 2 Postoperative plan: routine post-op care Quality VTE Deep Vein Thrombosis/Pulmonary Embolism Present on Admission: No
[2022-08-13] MEDS: BUDESONIDE 0.5 MG/2 ML NEB INH ×2 (09:32→19:31)
[2022-08-13] MEDS: GABAPENTIN 400 MG CAPSULE 1200 MG PO ×3 (09:34→21:25)
[2022-08-13] MEDS: ARIPiprazole 10 MG TABLET PO (09:34)
[2022-08-13] MEDS: hydrOXYzine pamoate 25 MG CAPSULE PO ×2 (09:34→17:52)
[2022-08-13] MEDS: OXYCODONE ER 10 MG TAB PO ×2 (09:34→21:26)
[2022-08-13] MEDS: DOCUSATE 100 MG CAPSULE PO ×2 (09:34)
[2022-08-13] MEDS: estradioL 1 MG TABLET PO (09:35)
[2022-08-13] MEDS: FLUTICASONE 120 SPRAY/16 GM SPRAY.SUSP NASAL (09:35)
[2022-08-13] MEDS: LITHIUM 300 MG IR CAPSULE PO (10:29)
[2022-08-13] MEDS: METHYLPHENIDATE 5 MG TABLET 20 MG PO ×2 (10:29→17:52)
--- NOTE | 2022-08-13 13:33 | PT.IPTN ---
Current Diagnoses Spondylolisthesis, lumbar region (08/11/22) Spinal stenosis, lumbar region with neurogenic claudication (08/11/22) Surgery Performed Operation Date: 08/11/22 10:45 Actual Procedures p L2-3, L3-4, L4-5 TLIF, L2-S1 PSF w. posterior instrumentation- Robot(Not Applicable) - Diana Denton MD Physical Therapy Treatment Note M2 PT-IP Current Condition Start: 08/12/22 11:19 Freq: NEEDED Status: Active Protocol: Document 08/12/22 09:00 [facility] (Rec: 08/12/22 11:41 [facility] [id number]) Physical Therapy Current Condition Current Condition Evaluation Date 08/12/22 Treatment Diagnosis L2-3, 3-4, 4-5 post fusion M3 PT-IP Subjective Start: 08/12/22 11:19 Freq: NEEDED Status: Active Protocol: Document 08/13/22 12:59 LJ (Rec: 08/13/22 13:33 LJ [id number]) Subjective Physical Therapy Visit Type Type Treatment Note Visit Start Time 10:52 Visit Stop Time 11:19 Total Visit Minutes 27 Number of RATOPRINTER Visits 1 Physical Therapy Visit Comments Patient Comments Willing to work with PT Therapy Pain Assessment Pain When Pain Assessed During Mobility Pain Present Pain Present Pain Reported Location Lower Back Intensity 4 Pain Management Techniques Re-positioning,Timing of Activity with Medications M4 PT-IP Mobility and Gait Start: 08/12/22 11:19 Freq: NEEDED Status: Active Protocol: Document 08/13/22 12:59 LJ (Rec: 08/13/22 13:33 LJ [id number]) PT-Bed Mobility Assessment Rolling Type of Rolling Log Rolling,Roll to Left Level of Assist Moderate Assistance,1 Person Assistance Supine to Sit Supine to Sit Maximum Assistance,1 Person Assistance,Bedrails Scooting Scooting to Edge of Bed Moderate Assistance PT-Transfer Assessment Sit to and From Stand Sit to and from Stand Minimal Assistance,Use of Upper Extremities Equipment Transfer Assistive Device Gait Belt,Front Wheeled Walker Transfers Transfer Destination Chair Transfer Technique ambulated Transfer Ability Level of Assist Minimal Assistance Comments Mobility Comments Pt in bed upon arrival. Willing to work with PT to get up and ambulate. Able to recall precautions. Pt appears very lethargic but able to anwer questions appropriately. ModA to logroll to left, MaxA for SL to sit, Luis F to stand from edge of bed. Max cueing for standing posture and head position. While standing at edge of bed Dr Lira entered. Spoke with pt as she stood CGA and more verbal and tactile cues for standing posture and head position. Pt leans to left and looks to left. When asked to turn head, pt stated unable due to plate in neck however Dr stated otherwise. Pt stood at bedside for 8 minutes as she spoke to and attempted lifting feet for preparing to walk. Dr palma and pt continued standing at bed another 2 minutes performing lateral weight shifting.Pt then asked to sit in chair which was ~3' away. Pt very slowly took several tiny steps forward then turned to position self in front of chair. Pt cued to reach to chair arms to lower self down. Pt still leaning to left so pillows positioned to straighten pt. Call light and all needs given to pt. Warm blanket applied and left in room. Gait Assessment Gait Gait Assistance Required: Minimum Assistance Distance (Feet) 3 Assistive Devices Assistive Device Gait Belt,Front Wheeled Walker Gait Deviations General Gait Pattern Antalgic,Decreased Stride Length,Decreased Feet Clearance,Lateral Trunk Lean, Narrow Based Gait,Step-to Gait Factors Limiting Gait Function Factors Limiting Gait Function Abnormal Tonal Influences, Decreased Activity Tolerance, Decreased Strength, Incoordination,Limited Range of Motion,Pain,Poor Balance, Poor Safety Awareness Comments Gait Comments pt ambulates with left side lean and flexed trunk. PT-Balance Assessment Sitting Balance and Reactions Static Sitting Balance Ability Fair Standing Balance and Reactions Static Standing Balance Ability Poor M5 PT-IP Objective Assessments Start: 08/12/22 11:19 Freq: NEEDED Status: Active Protocol: Document 08/12/22 09:00 [facility] (Rec: 08/12/22 11:41 [facility] [id number]) Orientation Orientation/Cognition Level of Alertness Alert Language Function Ability No Deficits Noted Safety Awareness Understands Safety Issues Memory Description No Deficits Noted Strength Lower Extremity Strength Assessment Bilaterally Impaired Hip grossly 3+/5 BLEs M6 PT-IP Treatment Start: 08/12/22 11:19 Freq: NEEDED Status: Active Protocol: Document 08/13/22 12:59 LJ (Rec: 08/13/22 13:33 LJ [id number]) Physical Therapy Treatment Exercises Exercises Ankle Pumps,Heel Slides Education Education Provided Precautions,Safety M7 PT-IP Assessment and Plan Start: 08/12/22 11:19 Freq: NEEDED Status: Active Protocol: Document 08/13/22 12:59 [facility] (Rec: 08/13/22 13:33 [facility] [id number]) PT Summary Assessment and Plan Potential Rehabilitation Potential Good Status of Condition at Evaluation Evolving Summary Impairments Pain,ROM,Strength,Balance,Bed Mobility,Transfers,Gait, Activity Tolerance Assessment Summary Pt Required ModA to MaxA with bed mobility and Luis F with transfers and gait. Pt still weak but experiencing less pain. Continue to progress progress. Pt will require SNF at this time to improve strength and functional mobility to be able to return home. Goals Bed Mobility Goal Standby Assistance Transfer Goal Standby Assistance Gait Goal Standby Assistance,Four Wheel Walker Gait Distance 150ft Other Goals up/down stairs 3 w/FWW w/SBA Days to Meet Goals 8 Frequency of Treatment Frequency Of Treatment Twice a Day Treatment Plan Other Recommendations and Next Treatment Progress bed mobility, Focus transfers, and gait as appropriate. Precautions Lumbar Precautions Log Roll,No Twisting,Limit Bending,Lifting Restriction of 10 lbs,Gait Belt above Incisional Area Weight Bearing Status Weight Bearing Status Weight Bear as Tolerated Recommendations To Nursing Amount of Assist Needed 1 Person Assist Discharge Recommendations PT Discharge Recommendations SNF Rehab
--- NOTE | 2022-08-13 13:37 | PT.IPTN ---
Current Diagnoses Spondylolisthesis, lumbar region (08/11/22) Spinal stenosis, lumbar region with neurogenic claudication (08/11/22) Surgery Performed Operation Date: 08/11/22 10:45 Actual Procedures p L2-3, L3-4, L4-5 TLIF, L2-S1 PSF w. posterior instrumentation- Robot(Not Applicable) - Diana Denton MD Physical Therapy Treatment Note M2 PT-IP Current Condition Start: 08/12/22 11:19 Freq: NEEDED Status: Active Protocol: Document 08/12/22 09:00 [facility] (Rec: 08/12/22 11:41 [facility] [id number]) Physical Therapy Current Condition Current Condition Evaluation Date 08/12/22 Treatment Diagnosis L2-3, 3-4, 4-5 post fusion M3 PT-IP Subjective Start: 08/12/22 11:19 Freq: NEEDED Status: Active Protocol: Document 08/13/22 12:59 LJ (Rec: 08/13/22 13:33 LJ [id number]) Subjective Physical Therapy Visit Type Type Treatment Note Visit Start Time 10:52 Visit Stop Time 11:19 Total Visit Minutes 27 Number of AUTOMOTIVE WHOLESALE PARTS ADVISOR Visits 1 Physical Therapy Visit Comments Patient Comments Willing to work with PT Therapy Pain Assessment Pain When Pain Assessed During Mobility Pain Present Pain Present Pain Reported Location Lower Back Intensity 4 Pain Management Techniques Re-positioning,Timing of Activity with Medications M4 PT-IP Mobility and Gait Start: 08/12/22 11:19 Freq: NEEDED Status: Active Protocol: Document 08/13/22 12:59 LJ (Rec: 08/13/22 13:33 LJ [id number]) PT-Bed Mobility Assessment Rolling Type of Rolling Log Rolling,Roll to Left Level of Assist Moderate Assistance,1 Person Assistance Supine to Sit Supine to Sit Maximum Assistance,1 Person Assistance,Bedrails Scooting Scooting to Edge of Bed Moderate Assistance PT-Transfer Assessment Sit to and From Stand Sit to and from Stand Minimal Assistance,Use of Upper Extremities Equipment Transfer Assistive Device Gait Belt,Front Wheeled Walker Transfers Transfer Destination Chair Transfer Technique ambulated Transfer Ability Level of Assist Minimal Assistance Comments Mobility Comments Pt in bed upon arrival. Willing to work with PT to get up and ambulate. Able to recall precautions. Pt appears very lethargic but able to anwer questions appropriately. ModA to logroll to left, MaxA for SL to sit, Luis F to stand from edge of bed. Max cueing for standing posture and head position. While standing at edge of bed Dr Lira entered. Spoke with pt as she stood CGA and more verbal and tactile cues for standing posture and head position. Pt leans to left and looks to left. When asked to turn head, pt stated unable due to plate in neck however Dr stated otherwise. Pt stood at bedside for 8 minutes as she spoke to and attempted lifting feet for preparing to walk. Dr palma and pt continued standing at bed another 2 minutes performing lateral weight shifting.Pt then asked to sit in chair which was ~3' away. Pt very slowly took several tiny steps forward then turned to position self in front of chair. Pt cued to reach to chair arms to lower self down. Pt still leaning to left so pillows positioned to straighten pt. Call light and all needs given to pt. Warm blanket applied and left in room. Gait Assessment Gait Gait Assistance Required: Minimum Assistance Distance (Feet) 3 Assistive Devices Assistive Device Gait Belt,Front Wheeled Walker Gait Deviations General Gait Pattern Antalgic,Decreased Stride Length,Decreased Feet Clearance,Lateral Trunk Lean, Narrow Based Gait,Step-to Gait Factors Limiting Gait Function Factors Limiting Gait Function Abnormal Tonal Influences, Decreased Activity Tolerance, Decreased Strength, Incoordination,Limited Range of Motion,Pain,Poor Balance, Poor Safety Awareness Comments Gait Comments pt ambulates with left side lean and flexed trunk. PT-Balance Assessment Sitting Balance and Reactions Static Sitting Balance Ability Fair Standing Balance and Reactions Static Standing Balance Ability Poor M5 PT-IP Objective Assessments Start: 08/12/22 11:19 Freq: NEEDED Status: Active Protocol: Document 08/12/22 09:00 [facility] (Rec: 08/12/22 11:41 [facility] [id number]) Orientation Orientation/Cognition Level of Alertness Alert Language Function Ability No Deficits Noted Safety Awareness Understands Safety Issues Memory Description No Deficits Noted Strength Lower Extremity Strength Assessment Bilaterally Impaired Hip grossly 3+/5 BLEs M6 PT-IP Treatment Start: 08/12/22 11:19 Freq: NEEDED Status: Active Protocol: Document 08/13/22 12:59 LJ (Rec: 08/13/22 13:33 LJ [id number]) Physical Therapy Treatment Exercises Exercises Ankle Pumps,Heel Slides Education Education Provided Precautions,Safety M7 PT-IP Assessment and Plan Start: 08/12/22 11:19 Freq: NEEDED Status: Active Protocol: Document 08/13/22 12:59 [facility] (Rec: 08/13/22 13:33 [facility] [id number]) PT Summary Assessment and Plan Potential Rehabilitation Potential Good Status of Condition at Evaluation Evolving Summary Impairments Pain,ROM,Strength,Balance,Bed Mobility,Transfers,Gait, Activity Tolerance Assessment Summary Pt Required ModA to MaxA with bed mobility and Luis F with transfers and gait. Pt still weak but experiencing less pain. Continue to progress progress. Pt will require SNF at this time to improve strength and functional mobility to be able to return home. Goals Bed Mobility Goal Standby Assistance Transfer Goal Standby Assistance Gait Goal Standby Assistance,Four Wheel Walker Gait Distance 150ft Other Goals up/down stairs 3 w/FWW w/SBA Days to Meet Goals 8 Frequency of Treatment Frequency Of Treatment Twice a Day Treatment Plan Other Recommendations and Next Treatment Progress bed mobilty, Focus transfers, and gait as appropriate. Precautions Lumbar Precautions Log Roll,No Twisting,Limit Bending,Lifting Restriction of 10 lbs,Gait Belt above Incisional Area Weight Bearing Status Weight Bearing Status Weight Bear as Tolerated Recommendations To Nursing Amount of Assist Needed 1 Person Assist Discharge Recommendations PT Discharge Recommendations SNF Rehab
[2022-08-13] MEDS: TIZANIDINE 4 MG TABLET 2 MG PO (14:15)
--- NOTE | 2022-08-13 15:40 | OT.IPNOTE ---
Pt just getting back to bed with nursing aid and too tired to do anymore therapy at this time. Able to assist pt with repositioning in bed, no charge.
--- NOTE | 2022-08-13 17:10 | PT-IP ANOTE ---
Attempted to see pt in pm however she was being put back to bed by ANA
[2022-08-13] MEDS: ALBUTEROL 2.5 MG/3 ML NEB (ADULT) INH (19:31)
[2022-08-13] MEDS: LITHIUM 300 MG IR CAPSULE 600 MG PO (21:26)
[2022-08-13] MEDS: TRAZODONE 100 MG TABLET PO (21:26)
[2022-08-13] MEDS: SENNOSIDES 8.6 MG TABLET 17.2 MG PO (21:26)
[2022-08-13] MEDS: OXYBUTYNIN 5 MG TABLET PO (21:26)
[2022-08-13] MEDS: diazePAM 5 MG TABLET PO (21:26)
[2022-08-14] VITALS (7 sets, daily range): BP systolic 99–124; BP diastolic 54–78; PULSE 61–80; RESP 16–18; TEMP 36.6–37.7; O2SAT 93–100
[2022-08-14] MEDS: HYDROMORPHONE 0.5 MG INJ IV ×2 (00:30→18:30)
[2022-08-14] MEDS: ACETAMINOPHEN 325 MG TABLET 650 MG PO ×4 (02:12→22:58)
[2022-08-14] MEDS: TIZANIDINE 4 MG TABLET 2 MG PO ×3 (02:12→23:34)
[2022-08-14] MEDS: ONDANSETRON 4 MG/2 ML INJ IV (02:53)
[2022-08-14] MEDS: LEVOTHYROXINE 100 MCG TABLET PO (06:32)
[2022-08-14] MEDS: OXYCODONE IR 5 MG TABLET 10 MG PO ×3 (07:03→22:57)
[2022-08-14] MEDS: BUDESONIDE 0.5 MG/2 ML NEB INH ×2 (08:00→19:31)
[2022-08-14] MEDS: LITHIUM 300 MG IR CAPSULE PO (10:00)
[2022-08-14] MEDS: METHYLPHENIDATE 5 MG TABLET 20 MG PO ×2 (10:00→15:14)
[2022-08-14] MEDS: DOCUSATE 100 MG CAPSULE PO (10:00)
[2022-08-14] MEDS: estradioL 1 MG TABLET PO (10:01)
[2022-08-14] MEDS: GABAPENTIN 400 MG CAPSULE 1200 MG PO ×3 (10:01→20:38)
[2022-08-14] MEDS: ARIPiprazole 10 MG TABLET PO (10:01)
[2022-08-14] MEDS: OXYCODONE ER 10 MG TAB PO ×3 (10:01→20:39)
--- NOTE | 2022-08-14 11:57 | PT.IPTN ---
Current Diagnoses Spondylolisthesis, lumbar region (08/11/22) Spinal stenosis, lumbar region with neurogenic claudication (08/11/22) Surgery Performed Operation Date: 08/11/22 10:45 Actual Procedures p L2-3, L3-4, L4-5 TLIF, L2-S1 PSF w. posterior instrumentation- Robot(Not Applicable) - Diana Denton MD Physical Therapy Treatment Note M2 PT-IP Current Condition Start: 08/12/22 11:19 Freq: NEEDED Status: Active Protocol: Document 08/14/22 11:24 SP (Rec: 08/14/22 13:53 SP [id number]) Physical Therapy Current Condition Current Condition Evaluation Date 08/12/22 Treatment Diagnosis L2-3, 3-4, 4-5 post fusion M3 PT-IP Subjective Start: 08/12/22 11:19 Freq: NEEDED Status: Active Protocol: Document 08/14/22 11:24 SP (Rec: 08/14/22 13:53 SP [id number]) Subjective Physical Therapy Visit Type Type Treatment Note Visit Start Time 11:24 Visit Stop Time 11:57 Total Visit Minutes 33 Notes ESTATE AGENT or OT provided 2nd person assist required during tx. Vitals: supine: BP 102/64 HR 64 SaO2 94% on RA. Number of FACILITIES PLANT ENGINEER Visits 2 Physical Therapy Visit Comments Patient Comments Willing to work with PT on 2nd attempt. Initially pt reported having pain and requesting nurse assist with medication at 1050. Patient Goals Open to going to rehab, stated works and her mom can not help her. Therapy Pain Assessment Pain When Pain Assessed During Mobility Pain Present Pain Present Pain Reported Location Left Hip Intensity 4 Scale Used Numeric (0 - 10) Description With Movement Pain Behaviors Facial Grimacing Pain Management Techniques Distraction,Elevation, Modification of Treatment,Re- positioning,Timing of Activity with Medications Lower Back Intensity 6 Scale Used Numeric (0 - 10) Description With Movement Pain Management Techniques Distraction,Modification of Treatment,Re-positioning, Timing of Activity with Medications M4 PT-IP Mobility and Gait Start: 08/12/22 11:19 Freq: NEEDED Status: Active Protocol: Document 08/14/22 11:24 SP (Rec: 08/14/22 13:53 SP [id number]) PT-Bed Mobility Assessment Rolling Type of Rolling Log Rolling,Roll to Left Level of Assist Maximal Assistance,1 Person Assistance Supine to Sit Supine to Sit Maximum Assistance,Total Assistance,1 Person Assistance ,Bedrails Scooting Scooting to Edge of Bed Maximum Assistance PT-Transfer Assessment Sit to and From Stand Sit to and from Stand Minimal Assistance,Moderate Assistance,1 Person Assistance Equipment Transfer Assistive Device Gait Belt,Front Wheeled Walker Transfers Transfer Destination Chair Transfer Technique Stand Step Pivot Transfer Ability Level of Assist Minimal Assistance,Moderate Assistance,1 Person Assistance ,Use of Upper Extremities Comments Mobility Comments FACILITIES PLANT ENGINEER instructed pre mobility BLE exercises: ankle pumps, heel slides AAROM LLE by therapist. Pt required increased heavy Max A x1 LR left with tactile support hand over hand reach rail and LR, Heavy Max/ Dependent L SL>sit and scoot to EOB. Mod/Max sitting EOB support required, BUE WB on bed but not able support self. STS Mod A x2 cues for hand placement to bed>FWW, cued quad facilitation coming to standing, instructed march in place Min A (retro sways but no LOB), SPT bed>chair wFWW, assist needed for FWW repositioning Min A x2, cues step back fully w/ FWW and hand over hand tactil cues reach back slow descend sit chair Min/Mod A x2. OT arrived provided 2nd person assist gait w/FWW CG and chair follow 8 ft to sink Min/Mod A x1 by FACILITIES PLANT ENGINEER. OT took over tx. Pt will requires SNF. Gait Assessment Gait Gait Assistance Required: Minimum Assistance,Moderate Assistance,2 Person Assist Distance (Feet) 8 Assistive Devices Assistive Device Gait Belt,Front Wheeled Walker Gait Deviations General Gait Pattern Antalgic,Decreased Stride Length,Decreased Feet Clearance,Lateral Trunk Lean, Narrow Based Gait,Step-to Gait Factors Limiting Gait Function Factors Limiting Gait Function Abnormal Tonal Influences, Decreased Activity Tolerance, Decreased Strength, Incoordination,Limited Range of Motion,Pain,Poor Balance, Poor Safety Awareness Comments Gait Comments pt ambulates with left side lean and flexed trunk. Cued Lean right/ upright posturing, foot clearance/stride w/ FWW min/Mod A x1, chair follow 2nd person Stair Climbing Assessment Comments Stair Climbing Comments unable to assess due to decreased strength: has 2 deep steps with no HRs + 1 to enter home and high bed at home to get into. PT-Balance Assessment Sitting Balance and Reactions Static Sitting Balance Ability Poor Dynamic Sitting Balance Ability Poor Standing Balance and Reactions Static Standing Balance Ability Poor Dynamic Standing Balance Ability Poor Device Used FWW M5 PT-IP Objective Assessments Start: 08/12/22 11:19 Freq: NEEDED Status: Active Protocol: Document 08/12/22 09:00 [facility] (Rec: 08/12/22 11:41 [facility] [id number]) Orientation Orientation/Cognition Level of Alertness Alert Language Function Ability No Deficits Noted Safety Awareness Understands Safety Issues Memory Description No Deficits Noted Strength Lower Extremity Strength Assessment Bilaterally Impaired Hip grossly 3+/5 BLEs M6 PT-IP Treatment Start: 08/12/22 11:19 Freq: NEEDED Status: Active Protocol: Document 08/14/22 11:24 SP (Rec: 08/14/22 13:53 SP [id number]) Physical Therapy Treatment Exercises Exercises Ankle Pumps,Heel Slides Education Education Provided Precautions,Safety M7 PT-IP Assessment and Plan Start: 08/12/22 11:19 Freq: NEEDED Status: Active Protocol: Document 08/14/22 11:24 SP (Rec: 08/14/22 13:53 SP [id number]) PT Summary Assessment and Plan Potential Rehabilitation Potential Good Status of Condition at Evaluation Evolving Summary Impairments Pain,ROM,Strength,Balance, Coordination,Bed Mobility, Transfers,Gait,Activity Tolerance Progress Towards Goals Slow Progress due to Pain,Slow Progress due to Activity Tolerance Assessment Summary Pt very lethargic, required Heavy Max A x1 for bed mobility (recommending 2 person), transfers Mod Ax1 w/ FWW. Continues to lean L stability support required. Shaky BUEs challenged with gripping cup to drink when seated in chair. Gait w/FWW Mod A x1 but requires 2nd person follow with chair. REcommending transfers only with nursing at this time. FACILITIES PLANT ENGINEER recommending SNF for progression in mobility. Goals Bed Mobility Goal Standby Assistance Transfer Goal Standby Assistance Gait Goal Standby Assistance,Four Wheel Walker Gait Distance 150ft Other Goals up/down stairs 3 w/FWW w/SBA Days to Meet Goals 8 Frequency of Treatment Frequency Of Treatment Twice a Day Treatment Plan Other Recommendations and Next Treatment Progress bed mobilty, Focus transfers, and gait as appropriate. Precautions Lumbar Precautions Log Roll,No Twisting,Limit Bending,Lifting Restriction of 10 lbs,Gait Belt above Incisional Area Other Precautions Pt recalled 3/3 precautions. Weight Bearing Status Weight Bearing Status Weight Bear as Tolerated Recommendations To Nursing Amount of Assist Needed 2 Person Assist Discharge Recommendations PT Discharge Recommendations SNF Rehab Transportation Needs at Discharge Wheelchair/Cabulance
--- NOTE | 2022-08-14 12:14 | OT.IP.TRT ---
Current Diagnoses Spondylolisthesis, lumbar region (08/11/22) Spinal stenosis, lumbar region with neurogenic claudication (08/11/22) Surgery Performed Operation Date: 08/11/22 10:45 Actual Procedures p L2-3, L3-4, L4-5 TLIF, L2-S1 PSF w. posterior instrumentation- Robot(Not Applicable) - Diana Denton MD Occupational Therapy Treatment Note M2 OT-IP Current Condition Start: 08/12/22 10:19 Freq: Status: Active Protocol: Document 08/12/22 09:30 [facility] (Rec: 08/12/22 10:33 [facility] [id number]) Occupational Therapy Current Condition Current Condition Evaluation Date 08/12/22 Treatment Diagnosis S/p L2-3, L3-4, L4-5 TLIF, L2- 5 PSF with post inst Diagnosis Onset Date 08/11/22 M3 OT- IP Subjective and Pain Start: 08/12/22 10:19 Freq: Status: Active Protocol: Document 08/14/22 11:55 [facility] (Rec: 08/14/22 12:49 [facility] [id number]) OT- Subjective Occupational Therapy Visit Type Type Treatment Note Visit Start Time 11:55 Visit Stop Time 12:14 Total Visit Minutes 19 Occupational Therapy Visit Comments Patient Comments Pt in with MANAGER LINE, when OT can to see the pt. Patient/Caregiver Goals To get better. OT Pain Assessment Pain When Pain Assessed At Rest Pain Present Pain Present Pain Reported Location Left Hip Intensity 4 Scale Used Numeric (0 - 10) M4 OT- IP ADL's Start: 08/12/22 10:19 Freq: Status: Active Protocol: Document 08/14/22 11:55 [facility] (Rec: 08/14/22 12:49 [facility] [id number]) OT [id number] Comments OT Self-Feeding Comments Pt needing assist to help get her water bottle to her mouth. At this time pt will need assist fro set-up and to eat due to decreased use of her BUE. OT ADL-Grooming Comments OT Grooming Comments Pt able to stand at the sink to rinse out her dentures and needing support at her arms to help reach out to the faucet. Pt able to wash her face with a wash cloth. OT ADL-Oral Care General Eval Oral Care Ability Standby Assistance Comments Oral Care Comments Pt able to rinse her dentures out. OT ADL-Dressing Comments OT Dressing Comments not performed OT ADL-Toileting Comments OT Toileting Comments Hodgson in place OT ADL-Bathing Comments OT Bathing Comments Tp possibly try a shower tomorrow. M5 OT- IP IADL's Start: 08/12/22 10:19 Freq: Status: Active Protocol: Document 08/12/22 09:30 [facility] (Rec: 08/12/22 10:33 [facility] [id number]) OT-Instrumental Activities of Daily Living Deficits IADL Deficits Identified Deficits Home Safety Awareness Awareness of Need for Assistance at Home Good Awareness Home Safety Comments Pt is a bit drowsy at this time. Medication Management Medication Management Comments Pt would benefit from assist at this time due to being drowsy. Money Management Money Management Comments Pt would benefit from assist at this time due to being drowsy. Meal Preparation Meal Preparation Caregiver Provides Assist Decontaminator Decontaminator Caregiver Provides Assist M6 OT- IP Functional Cognition Start: 08/12/22 10:19 Freq: Status: Active Protocol: Document 08/14/22 11:55 [facility] (Rec: 08/14/22 12:49 [facility] [id number]) Cognitive Factors Limiting Selfcare Function Cognitive Ability Level of Alertness Drowsy Patient Orientation Name,Situation Attention Span Ability Capable of Focused Attention, Capable of Sustained Attention Ability to Follow Commands Able to Follow One Step Commands with Increased Time, Able to Follow One Step Commands with Repetition Cognitive Comments Cognitive Assessment Comments Pt is very drowsy and needing vc to follow commands fro ADl and mobility needs. pt needing MAX vc for hand placement and cues for transitions and use of FWW. M7 OT- IP Mobility and Balance Start: 08/12/22 10:19 Freq: Status: Active Protocol: Document 08/14/22 11:55 [facility] (Rec: 08/14/22 12:49 [facility] [id number]) OT-Transfer Assessment Sit to and From Stand Sit to and from Stand Minimal Assistance,Moderate Assistance,1 Person Assistance Transfers Transfer Ability Moderate Assistance,1 Person Assistance Technique Transfer Destination Chair Transfer Technique Stand Step Pivot Devices Transfer Assistive Devices Gait Belt,Front Wheeled Walker Comments Mobility Comments Pt able to come to stand from SERA to MODA x 1 to FWW. MODA x1 for transfer with FWW. Pt at times has a posterior lean. OT- Balance Assessment Sitting Balance and Reactions Static Sitting Balance Ability Fair Dynamic Sitting Balance Ability Poor Standing Balance and Reactions Static Standing Balance Ability Poor Dynamic Standing Balance Ability Poor Comments Other Balance Tests/Deviations/Treatment Pt heavily leans to the left : while seated, pt lateral flexion to the left with her neck. M8 OT- IP Objective Assessments Start: 08/12/22 10:19 Freq: Status: Active Protocol: Document 08/12/22 09:30 [facility] (Rec: 08/12/22 10:33 [facility] [id number]) OT Gross Range of Motion Upper Extremity Range of Motion Assessment Bilaterally Impaired ROM Impairments LUE more impaired than RUE OT Strength Upper Extremity Strength Assessment Bilaterally Impaired M9 OT- IP Assessment and Plan Start: 08/12/22 10:19 Freq: Status: Active Protocol: Document 08/14/22 11:55 [facility] (Rec: 08/14/22 12:49 [facility] [id number]) OT Summary Assessment and Plan Potential Rehabilitation Potential Good Analytic Complexity at Evaluation Moderate Summary OT Impairments Pain,Range of Motion,Strength, Balance,Functional Cognition, Functional Mobility,Grooming, Dressing,Toileting,Bathing, Toilet Transfers,Shower Transfers,Activity Tolerance Progress Towards Goals Slow Progress due to Pain,Slow Progress due to Medical Issues,Slow Progress due to Activity Tolerance,Slow Progress due to Cognition Assessment Summary Pt still very drowsy and needing step by step commands to follow for ADl and mobility needs. Pt having difficulty to use her hands and needing assist to help drink from her water bottle and wash her dentures. Pt would greatly benefit from skilled rehab when medically stable. Goals Self-Feeding Goal Independent Grooming Goal Independent Dressing Goal Minimal Assistance Toileting Goal Independent Bathing Goal Standby Assistance Toilet Transfer Goal Independent Shower Transfer Goal Independent Days to Meet Goals 14 Frequency of Treatment Frequency Of Treatment Once a Day Treatment Plan OT Treatment Plan ADL Training,Functional Cognition Training,Functional Mobility,Patient/Family Education,Discharge Planning Other Treatment Recommendations and Next LB dressing Treatment Focus Discharge Recommendations OT Discharge Recommendations SNF Rehab Transportation Needs at Discharge Wheelchair/Cabulance
--- NOTE | 2022-08-14 15:32 | PT.IPTN ---
Current Diagnoses Spondylolisthesis, lumbar region (08/11/22) Spinal stenosis, lumbar region with neurogenic claudication (08/11/22) Surgery Performed Operation Date: 08/11/22 10:45 Actual Procedures p L2-3, L3-4, L4-5 TLIF, L2-S1 PSF w. posterior instrumentation- Robot(Not Applicable) - Diana Denton MD Physical Therapy Treatment Note M2 PT-IP Current Condition Start: 08/12/22 11:19 Freq: NEEDED Status: Active Protocol: Document 08/14/22 15:08 [facility] (Rec: 08/14/22 17:01 [facility] [id number]) Physical Therapy Current Condition Current Condition Evaluation Date 08/12/22 Treatment Diagnosis L2-3, 3-4, 4-5 post fusion M3 PT-IP Subjective Start: 08/12/22 11:19 Freq: NEEDED Status: Active Protocol: Document 08/14/22 15:08 [facility] (Rec: 08/14/22 17:01 SP [id number]) Subjective Physical Therapy Visit Type Type Treatment Note Visit Start Time 15:08 Visit Stop Time 15:32 Total Visit Minutes 24 Notes Mother in room when arrived and observed tx. Number of IMMERSION METALCLEANER Visits 3 Physical Therapy Visit Comments Patient Comments Pt willing work with therapy. Patient Goals Open to going to rehab, stated works and her mom has back problems and can not help her. Therapy Pain Assessment Pain When Pain Assessed During Mobility Pain Present Pain Present Pain Reported Location Left Hip Intensity 5 Scale Used Numeric (0 - 10) Description Aching Pain Management Techniques Distraction,Elevation, Modification of Treatment,Re- positioning,Timing of Activity with Medications M4 PT-IP Mobility and Gait Start: 08/12/22 11:19 Freq: NEEDED Status: Active Protocol: Document 08/14/22 15:08 SP (Rec: 08/14/22 17:01 SP [id number]) PT-Bed Mobility Assessment Rolling Type of Rolling Log Rolling,Roll to Left Level of Assist Standby Assistance,1 Person Assistance Supine to Sit Supine to Sit Standby Assistance,Contact Guard Assistance,Bedrails Sit to Supine Sit to Supine Minimal Assistance,1 Person Assistance,Bedrails Scooting Scooting to Edge of Bed Standby Assistance PT-Transfer Assessment Sit to and From Stand Sit to and from Stand Minimal Assistance,1 Person Assistance,Use of Upper Extremities Equipment Transfer Assistive Device Gait Belt,Front Wheeled Walker Transfers Transfer Destination Bed,Chair Transfer Technique pt ambulated with FWW Transfer Ability Level of Assist Contact Guard Assistance, Minimal Assistance,1 Person Assistance,Use of Upper Extremities Comments Mobility Comments Pt completed 9deg elevated LR L using bed rails>sit CG/ close and scoot to EOB SBA. STS cues push from bed 1UE opposite UE on FWW, Min A x1. Gait to sink and back to chair CG/ Min A, few trunk sways Min A recovery, cued upright posturing and lean more R to midline. Cued step back fully, reach back and slow descend chair Min A. Pt rested 3 min in chair, STS Min A cued wt shift forward over feet wider PATRICIA, gait to room bench CG/ Min A, stood looking out window few trunk sways self recovery CGA. Gait back to bed slow moving, cued increased foot clearance/ stride, side and back step fully w/ FWW CG/Min A due to occasional retro lean 10%A trunk support. stand>sit CGA>L SL Min A for BLEs into bed while use bed rail. Log roll supine. Provided pillow under thighs for neutral LB alignment. Provided pillow under L shld and L side head for improved alignment support . Pt had call light and all needs in reach, bed alarmed. Mom in room when left. Gait Assessment Gait Gait Assistance Required: Contact Guard Assist,Minimum Assistance,1 Person Assist Distance (Feet) 26 Assistive Devices Assistive Device Gait Belt,Front Wheeled Walker Gait Deviations General Gait Pattern Antalgic,Decreased Stride Length,Decreased Feet Clearance,Lateral Trunk Lean, Narrow Based Gait,Step-to Gait Factors Limiting Gait Function Factors Limiting Gait Function Abnormal Tonal Influences, Decreased Activity Tolerance, Decreased Strength, Incoordination,Limited Range of Motion,Pain,Poor Balance, Poor Safety Awareness Comments Gait Comments pt ambulates with left side lean and flexed trunk. Cued Lean right/ upright posturing, foot clearance/stride w/ FWW CG/ Min A x1. Stair Climbing Assessment Comments Stair Climbing Comments unable to assess due to decreased strength: has 2 deep steps with no HRs + 1 to enter home and high bed at home to get into. PT-Balance Assessment Sitting Balance and Reactions Static Sitting Balance Ability Fair Dynamic Sitting Balance Ability Fair Standing Balance and Reactions Static Standing Balance Ability Fair Dynamic Standing Balance Ability Fair Device Used FWW M5 PT-IP Objective Assessments Start: 08/12/22 11:19 Freq: NEEDED Status: Active Protocol: Document 08/12/22 09:00 [facility] (Rec: 08/12/22 11:41 [facility] [id number]) Orientation Orientation/Cognition Level of Alertness Alert Language Function Ability No Deficits Noted Safety Awareness Understands Safety Issues Memory Description No Deficits Noted Strength Lower Extremity Strength Assessment Bilaterally Impaired Hip grossly 3+/5 BLEs M6 PT-IP Treatment Start: 08/12/22 11:19 Freq: NEEDED Status: Active Protocol: Document 08/14/22 15:08 SP (Rec: 08/14/22 17:01 SP [id number]) Physical Therapy Treatment Education Education Provided Precautions,Safety M7 PT-IP Assessment and Plan Start: 08/12/22 11:19 Freq: NEEDED Status: Active Protocol: Document 08/14/22 15:08 SP (Rec: 08/14/22 17:01 SP [id number]) PT Summary Assessment and Plan Potential Rehabilitation Potential Good Status of Condition at Evaluation Evolving Summary Impairments Pain,ROM,Strength,Balance, Coordination,Bed Mobility, Transfers,Gait,Activity Tolerance Progress Towards Goals Slow Progress due to Pain,Slow Progress due to Activity Tolerance Assessment Summary Pt improved mobility this tx, CG/ SBA log roll and sup>sit, Mod A sit>supine for BLE support. Transfers and gait w/ FWW CG/ Min A due to decreased trunk stability. Pt able to improve casing man to use corded bed controls this tx. Discussed upright to drink safety. Recommending SNF for progress strength and functional mobility. Goals Bed Mobility Goal Standby Assistance Transfer Goal Standby Assistance Gait Goal Standby Assistance,Four Wheel Walker Gait Distance 150ft Other Goals up/down stairs 3 w/FWW w/SBA Days to Meet Goals 8 Frequency of Treatment Frequency Of Treatment Twice a Day Treatment Plan Other Recommendations and Next Treatment Progress bed mobilty, Focus transfers, and gait as appropriate. 5x STS, balance activities if able. Precautions Lumbar Precautions Log Roll,No Twisting,Limit Bending,Lifting Restriction of 10 lbs,Gait Belt above Incisional Area Weight Bearing Status Weight Bearing Status Weight Bear as Tolerated Recommendations To Nursing Amount of Assist Needed 1 Person Assist Discharge Recommendations PT Discharge Recommendations SNF Rehab Transportation Needs at Discharge Wheelchair/Cabulance
--- NOTE | 2022-08-14 16:03 | CM.DPC ---
DCP continued: CM spoke with the patient and discussed SNF options. CM showed her the choices on the IPAD and she chose [facility] as her first choice and [facility] as her second Choice. clinicals were sent and CM LVM for both facilities for them to review patient for potential admission. CM team will follow up with both care centers tomorrow to see if they can accept patient for admission. PASRR completed. AMARI heard back form Carla at [facility] in [place] and they are working with the patients insurance to see if they are contracted with them. Carla stated she will call Cm back in Am to determine if they can accept the patients insurance. CM team will continue to follow and get SNF DC plan Set up for patient. plan B will be home with HH however patient is very weak and lethargic needing a lot of assistance and would benifit from SNF per PT/ OT notes. Keya Badillo RNlink fabric machine operator
--- NOTE | 2022-08-14 17:00 | P.PN_ITS ---
Subjective Subjective Date Patient Seen: 08/14/22 Time Patient Seen: 17:01 Interval history: Patient is complaining of moderate low back pain, much improved from this morning. She is still having some numbness on her right lower extremity. She worked with physical therapy and is planning on discharging to SNF as she does not have anyone at home to care for her. She also has a skin tear on her right cheek on her face, likely due to the anesthesia tape. Exam Vital Signs (past 8 hours): - 08/14/22 12:11 08/14/22 15:55 Temperature 97.8 F 99.8 F H Pulse Rate 64 61 Respiratory Rate 17 17 Blood Pressure 102/64 116/61 Pulse Oximetry 94 97 Oxygen Flow Rate 0 0 Oxygen Delivery Method Room Air Oxygen Flow Rate 0 Narrative Exam Narrative: Pleasant 52-year-old female, resting comfortably in bed, much less somnolent than when I saw her this morning. Lumbar incisions demonstrate left lateral incision with bloody discharge, no surrounding erythema, induration, or christ pus. Bilateral lower extremity: Motor functions are grossly intact, sensation is decreased right compared to left, calves are soft and nontender palpation. Objective Labs 08/12/22 08:00 [facility] Medical History ADD (attention deficit disorder) Ankylosing spondylitis Anxiety Arthritis Asthma Bipolar disorder CKD (chronic kidney disease) Collapsed lung (~2009) Depression Edema Fibromyalgia Gastroparesis GERD (gastroesophageal reflux disease) Heartburn Hiatal hernia HTN (hypertension) Hypothyroid Jerky body movements Kidney stones Migraines Nutcracker esophagus Occipital bone fracture (06/17/19) Palpitations Spinal stenosis Spinal stenosis of lumbar region with radiculopathy Syncopal episodes Trauma (06/17/19) Surgical History History of bladder surgery History of History of ear surgery History of lumbar fusion (01/04/20) History of surgery History of surgery (~02/2020) Hx of cervical spinal arthrodesis Hx of cervical spinal arthrodesis Hx of cholecystectomy Hx of foot surgery Hx of lithotripsy Hx of shoulder surgery Hx of sinus surgery S/P complete hysterectomy Social History household members: spouse Smoking Status: Never smoker alcohol intake: current Assessment & Plan Post-op Postoperative Procedures: Procedures Operation Date: 08/11/22 10:45 Actual Procedure Side Surgeon p L2-3, L3-4, L4-5 TLIF, L2-S1 PSF w. posterior instrumentation- Robot Not Applicable Diana Denton MD Postoperative day: 3 Postoperative status: marginal pain control Postoperative status narrative: -stable status post L2-3, L3-4, L4-5 TLIF, L2-S1 PSF with posterior instrumentation Postoperative plan: routine post-op care Postoperative plan narrative: -mobilize with PT/OT. Weightbearing as tolerated with front wheel walker. No bending, lifting, twisting x6 weeks -continue with multimodal pain management, change long-acting oxycodone to t.i.d., as the patient was taking prior to surgery. Discouraged IV Dilaudid. -Neosporin ointment as needed for her facial wounds, likely due to the tape from anesthesia -DC to SNF tomorrow, once cleared by PT/OT and bed is available Quality VTE Deep Vein Thrombosis/Pulmonary Embolism Present on Admission: No
[2022-08-14 17:35] LABS: Hematocrit 29.3 % (36-46); Hemoglobin 9.8 g/dL (12.0-16.0)
[2022-08-14] MEDS: SENNOSIDES 8.6 MG TABLET 17.2 MG PO (20:38)
[2022-08-14] MEDS: diazePAM 5 MG TABLET PO (20:39)
[2022-08-14] MEDS: OXYBUTYNIN 5 MG TABLET PO (20:39)
[2022-08-14] MEDS: TRAZODONE 100 MG TABLET PO (20:39)
[2022-08-14] MEDS: LITHIUM 300 MG IR CAPSULE 600 MG PO (20:48)
[2022-08-14] MEDS: SODIUM CHLORIDE 0.9% FLUSH 10 ML IV (23:14)
[2022-08-15] MEDS: OXYCODONE IR 5 MG TABLET 10 MG PO ×2 (02:14→04:55)
[2022-08-15 04:00] VITALS: BP 117/75; PULSE 60; RESP 18; TEMP 36.8; O2SAT 100
[2022-08-15] MEDS: carisoprodoL 350 MG TABLET PO (04:38)
[2022-08-15] MEDS: ACETAMINOPHEN 325 MG TABLET 650 MG PO ×4 (04:38→23:28)
[2022-08-15] MEDS: LEVOTHYROXINE 100 MCG TABLET PO (05:38)
[2022-08-15 08:00] VITALS: BP 127/71; PULSE 61; RESP 17; TEMP 37.4; O2SAT 100
[2022-08-15] MEDS: BUDESONIDE 0.5 MG/2 ML NEB INH ×2 (08:08→19:20)
[2022-08-15 08:09] VITALS: PULSE 96; RESP 18
[2022-08-15] MEDS: estradioL 1 MG TABLET PO (10:02)
[2022-08-15] MEDS: OXYCODONE ER 10 MG TAB PO ×3 (10:02→20:37)
[2022-08-15] MEDS: ARIPiprazole 10 MG TABLET PO (10:02)
[2022-08-15] MEDS: GABAPENTIN 400 MG CAPSULE 1200 MG PO ×3 (10:03→20:38)
[2022-08-15] MEDS: DOCUSATE 100 MG CAPSULE PO (10:03)
[2022-08-15] MEDS: SODIUM CHLORIDE 0.9% FLUSH 10 ML IV ×2 (10:04→20:38)
[2022-08-15] MEDS: LITHIUM 300 MG IR CAPSULE PO (10:14)
[2022-08-15] MEDS: FLUTICASONE 120 SPRAY/16 GM SPRAY.SUSP NASAL (10:14)
[2022-08-15] MEDS: TIZANIDINE 4 MG TABLET 2 MG PO ×2 (10:14→23:28)
[2022-08-15] MEDS: NEOMYCIN/POLYMYX/BACITRAC 28.35 GM OINT 1 APPLIC TOP (10:15)
[2022-08-15] MEDS: METHYLPHENIDATE 5 MG TABLET 20 MG PO ×2 (10:15→16:14)
--- NOTE | 2022-08-15 11:01 | OT.IP.TRT ---
Current Diagnoses Spondylolisthesis, lumbar region (08/11/22) Spinal stenosis, lumbar region with neurogenic claudication (08/11/22) Surgery Performed Operation Date: 08/11/22 10:45 Actual Procedures p L2-3, L3-4, L4-5 TLIF, L2-S1 PSF w. posterior instrumentation- Robot(Not Applicable) - Diana Denton MD Occupational Therapy Treatment Note M2 OT-IP Current Condition Start: 08/12/22 10:19 Freq: Status: Active Protocol: Document 08/12/22 09:30 [facility] (Rec: 08/12/22 10:33 [facility] [id number]) Occupational Therapy Current Condition Current Condition Evaluation Date 08/12/22 Treatment Diagnosis S/p L2-3, L3-4, L4-5 TLIF, L2- 5 PSF with post inst Diagnosis Onset Date 08/11/22 M3 OT- IP Subjective and Pain Start: 08/12/22 10:19 Freq: Status: Active Protocol: Document 08/15/22 11:09 [facility] (Rec: 08/15/22 11:27 [facility] [id number]) OT- Subjective Occupational Therapy Visit Type Type Treatment Note Visit Start Time 10:15 Visit Stop Time 11:01 Total Visit Minutes 46 Occupational Therapy Visit Comments Patient Comments Pt wanting to use the bathroom . Patient/Caregiver Goals TO get better. OT Pain Assessment Pain When Pain Assessed At Rest Pain Present Pain Present Pain Reported M4 OT- IP ADL's Start: 08/12/22 10:19 Freq: Status: Active Protocol: Document 08/15/22 11:09 [facility] (Rec: 08/15/22 11:27 [facility] [id number]) OT MEA-Fbsj-Vccxskg Comments OT Self-Feeding Comments Pt needing assist for set-up of tray. Pt not hungry as only eating a bite of her eggs and agreed to have an Ensure, nursing aware. OT ADL-Grooming Comments OT Grooming Comments Pt to tired to attempt today. OT ADL-Dressing General Eval Lower Body Dressing Ability Maximum Assistance Areas Needing Assistance Underpants/Brief,Socks Comments OT Dressing Comments Assist for socks and brief. OT ADL-Toileting General Evaluation Toileting Ability Maximum Assistance Areas Needing Assistance Manage Clothing,Perform Perineal Hygiene Comments OT Toileting Comments Pt needing assist to help park /doff the brief and and able to wipe after urinating while seated on the toilet but will need assist after a bowel movement. MODA/MAXA to help to stand with FWW, while assist pt to pull up the brief. OT ADL-Bathing Comments OT Bathing Comments Pt too tired to attempt today. M5 OT- IP IADL's Start: 08/12/22 10:19 Freq: Status: Active Protocol: Document 08/12/22 09:30 [facility] (Rec: 08/12/22 10:33 [facility] [id number]) OT-Instrumental Activities of Daily Living Deficits IADL Deficits Identified Deficits Home Safety Awareness Awareness of Need for Assistance at Home Good Awareness Home Safety Comments Pt is a bit drowsy at this time. Medication Management Medication Management Comments Pt would benefit from assist at this time due to being drowsy. Money Management Money Management Comments Pt would benefit from assist at this time due to being drowsy. Meal Preparation Meal Preparation Caregiver Provides Assist Ultrasound Technician Ultrasound Technician Caregiver Provides Assist M6 OT- IP Functional Cognition Start: 08/12/22 10:19 Freq: Status: Active Protocol: Document 08/15/22 11:09 [facility] (Rec: 08/15/22 11:27 [facility] [id number]) Cognitive Factors Limiting Selfcare Function Cognitive Ability Level of Alertness Alert Patient Orientation Name,Situation Attention Span Ability Capable of Focused Attention, Capable of Sustained Attention Ability to Follow Commands Able to Follow One Step Commands with Increased Time, Able to Follow One Step Commands with Repetition Cognitive Comments Cognitive Assessment Comments Pt able to follow commands better today for ADl's and mobility needs. M7 OT- IP Mobility and Balance Start: 08/12/22 10:19 Freq: Status: Active Protocol: Document 08/15/22 11:09 [facility] (Rec: 08/15/22 11:27 [facility] [id number]) OT- Bed Mobility Assessment Rolling Level of Assistance Moderate Assistance,1 Person Assistance Supine to Sit Supine to Sit Assist Moderate Assistance,1 Person Assistance OT-Transfer Assessment Sit to and From Stand Sit to and from Stand MIN to MODA Assistance Transfers Transfer Ability Moderate Assistance,Maximum Assistance Technique Transfer Destination Bed,Chair,Toilet Devices Transfer Assistive Devices Gait Belt,Front Wheeled Walker Comments Mobility Comments Pt needing MODA to help get her trunk upright, and assist to help scoot her forwards in the bed. Pt needing from SERA to MODA to stand to FWW. As pt tires needing MODA/MAXA for her balance and to help guide the FWW. Pt is unsteady on her feet and cues to stand upright and keep the FWW in front of her. OT- Gait Assessment Comments Gait Ability Comments Pt able to take a some steps to get into the bathroom and on the way out needing great effort to help maintain her balance, cues to stay upright and to help guide the FWW. Pt states her bathroom is twice the distance away as the distance to the bathroom here in the hospital. OT- Balance Assessment Sitting Balance and Reactions Static Sitting Balance Ability Fair Dynamic Sitting Balance Ability Poor Standing Balance and Reactions Static Standing Balance Ability Poor Dynamic Standing Balance Ability Poor Comments Other Balance Tests/Deviations/Treatment Pt able to sit upright but : still leans but able to maintain her balance better today. M8 OT- IP Objective Assessments Start: 08/12/22 10:19 Freq: Status: Active Protocol: Document 08/12/22 09:30 [facility] (Rec: 08/12/22 10:[address] [id number] OT Gross Range of Motion Upper Extremity Range of Motion Assessment Bilaterally Impaired ROM Impairments LUE more impaired than RUE OT Strength Upper Extremity Strength Assessment Bilaterally Impaired M9 OT- IP Assessment and Plan Start: 08/12/22 10:19 Freq: Status: Active Protocol: Document 08/15/22 11:09 [facility] (Rec: 08/15/22 11:[address] [id number] OT Summary Assessment and Plan Potential Rehabilitation Potential Good Analytic Complexity at Evaluation Moderate Summary OT Impairments Pain,Range of Motion,Strength, Balance,Functional Cognition, Functional Mobility,Grooming, Dressing,Toileting,Bathing, Toilet Transfers,Shower Transfers,Activity Tolerance Progress Towards Goals Progressing Toward Goals,Slow Progress due to Pain Assessment Summary Pt able to go to the bathroom with MODA /MAXA with FWW and needing assist for all brief management needs and in addition to assist for her balance. Pt is cooperative but still would greatly benefit from skilled rehab to be able to do her ADL and mobility needs as currently pt requiring at least MODA for mobility and ADL needs. Goals Self-Feeding Goal Independent Grooming Goal Independent Dressing Goal Minimal Assistance Toileting Goal Independent Bathing Goal Standby Assistance Toilet Transfer Goal Independent Shower Transfer Goal Standby Assistance Days to Meet Goals 13 Frequency of Treatment Frequency Of Treatment Once a Day Treatment Plan OT Treatment Plan ADL Training,Functional Cognition Training,Functional Mobility,Patient/Family Education,Discharge Planning Other Treatment Recommendations and Next shower Treatment Focus Discharge Recommendations OT Discharge Recommendations SNF Rehab Transportation Needs at Discharge Wheelchair/Cabulance
--- NOTE | 2022-08-15 11:42 | PT-IP ANOTE ---
Checked with pt in am. Stated pain level was too high and too tired after working with OT. Will check back.
--- NOTE | 2022-08-15 11:55 | CM.DPC ---
DCP: Sent updated OT notes to [facility] and [place]. Chad berger f/u via phone call. Alina Coffey RN Case Manager
--- NOTE | 2022-08-15 14:16 | PM.PNPO.1 ---
Subjective Subjective Date Patient Seen: 08/15/22 Interval history: Patient awake laying in bed this morning. She states that she continues to have 7-8 out of 10 pain. Notes more pain with movement. Has intermittently gotten up and worked with PT and OT. She states physical therapy has been going well. She is looking forward to being discharged to rehab soon. Exam Vital Signs (past 8 hours): - 08/15/22 08:09 08/15/22 08:00 Temperature 99.3 F Pulse Rate 96 H 61 Respiratory Rate 18 17 Blood Pressure 127/71 Pulse Oximetry 100 Oxygen Delivery Method Room Air Oxygen Delivery Method Room Air Oxygen Flow Rate 0 Narrative Exam Narrative: Awake, alert, and oriented. Numbness to the right lower extremity, present prior to surgery. Remainder of strength and sensation intact of bilateral lower extremities. Bilateral calves soft, compressible, nontender with no palpable cords or masses. Intraoperative dressing clean, dry, and intact. Objective Labs 08/14/22 17:23 Labs: Laboratory Results - last 24 hr 08/14/22 17:23 Hgb 9.8 L Hct 29.3 L PFSH Medical History ADD (attention deficit disorder) Ankylosing spondylitis Anxiety Arthritis Asthma Bipolar disorder CKD (chronic kidney disease) Collapsed lung (~2009) Depression Edema Fibromyalgia Gastroparesis GERD (gastroesophageal reflux disease) Heartburn Hiatal hernia HTN (hypertension) Hypothyroid Jerky body movements Kidney stones Migraines Nutcracker esophagus Occipital bone fracture (06/17/19) Palpitations Spinal stenosis Spinal stenosis of lumbar region with radiculopathy Syncopal episodes Trauma (06/17/19) Surgical History History of bladder surgery History of History of ear surgery History of lumbar fusion (01/04/20) History of surgery History of surgery (~02/2020) Hx of cervical spinal arthrodesis Hx of cervical spinal arthrodesis Hx of cholecystectomy Hx of foot surgery Hx of lithotripsy Hx of shoulder surgery Hx of sinus surgery S/P complete hysterectomy Social History household members: spouse Smoking Status: Never smoker alcohol intake: current Assessment & Plan Post-op Postoperative Procedures: Procedures Operation Date: 08/11/22 10:45 Actual Procedure Side Surgeon p L2-3, L3-4, L4-5 TLIF, L2-S1 PSF w. posterior instrumentation- Robot Not Applicable Diana Denton MD Postoperative day: 4 Postoperative status: doing well Postoperative status narrative: Progressing as expected after surgery Postoperative plan: routine post-op care Quality VTE Deep Vein Thrombosis/Pulmonary Embolism Present on Admission: No
--- NOTE | 2022-08-15 16:19 | PT.IPTN ---
Current Diagnoses Spondylolisthesis, lumbar region (08/11/22) Spinal stenosis, lumbar region with neurogenic claudication (08/11/22) Surgery Performed Operation Date: 08/11/22 10:45 Actual Procedures p L2-3, L3-4, L4-5 TLIF, L2-S1 PSF w. posterior instrumentation- Robot(Not Applicable) - Diana Denton MD Physical Therapy Treatment Note M2 PT-IP Current Condition Start: 08/12/22 11:19 Freq: NEEDED Status: Active Protocol: Document 08/14/22 15:08 SP (Rec: 08/14/22 17:01 SP [id number]) Physical Therapy Current Condition Current Condition Evaluation Date 08/12/22 Treatment Diagnosis L2-3, 3-4, 4-5 post fusion M3 PT-IP Subjective Start: 08/12/22 11:19 Freq: NEEDED Status: Active Protocol: Document 08/15/22 15:51 LJ (Rec: 08/15/22 16:19 LJ [id number]) Subjective Physical Therapy Visit Type Type Treatment Note Visit Start Time 13:00 Visit Stop Time 13:22 Total Visit Minutes 22 Notes Pt sleeping in chair upon arrival Physical Therapy Visit Comments Patient Comments Pt willing work with therapy. Therapy Pain Assessment Pain When Pain Assessed During Mobility Pain Present Pain Present Pain Reported Location Left Hip Intensity 3 Scale Used Numeric (0 - 10) Description Aching Pain Management Techniques Distraction,Elevation, Modification of Treatment,Re- positioning,Timing of Activity with Medications M4 PT-IP Mobility and Gait Start: 08/12/22 11:19 Freq: NEEDED Status: Active Protocol: Document 08/15/22 15:51 LJ (Rec: 08/15/22 16:19 LJ [id number]) PT-Bed Mobility Assessment Rolling Type of Rolling Log Rolling,Roll to Right Level of Assist Minimal Assistance,1 Person Assistance Sit to Supine Sit to Supine Minimal Assistance,1 Person Assistance,Bedrails Scooting Scooting Up and Down in Bed Minimal Assistance PT-Transfer Assessment Sit to and From Stand Sit to and from Stand Contact Guard Assistance,1 Person Assistance,Use of Upper Extremities Equipment Transfer Assistive Device Gait Belt,Front Wheeled Walker Transfers Transfer Destination Chair Transfer Technique pt ambulated with FWW Transfer Ability Level of Assist Contact Guard Assistance,1 Person Assistance,Use of Upper Extremities Comments Mobility Comments Pt reclined in chair. Began therapy with ankle pumps and heel slides. Pt sat upright in chair and able to scoot to edge of chair SBA. Pushed up from chair bilateral UEs. Sit> stand CGA. Pt ambulated CGA with flexed trunk and L lateral lean head and trunk. Pt ambulated around room to other side f bed then requested to sit on the bed. Asked pt if she would like to ambulate more but she stated her LLE was painful and didn't think she could do any more activity. Pt able to sit onto side of bed SBA. Used bedrails and assist with LEs from therapist to retrn beack to bed. Pt required ModA to position in center of bed and ModA to scoot to the head of the bed. See gait for comments Gait Assessment Gait Gait Assistance Required: Contact Guard Assist,Minimum Assistance,1 Person Assist Distance (Feet) 25 Assistive Devices Assistive Device Gait Belt,Front Wheeled Walker Gait Deviations General Gait Pattern Antalgic,Decreased Stride Length,Decreased Feet Clearance,Lateral Trunk Lean, Narrow Based Gait,Step-to Gait Factors Limiting Gait Function Factors Limiting Gait Function Abnormal Tonal Influences, Decreased Activity Tolerance, Decreased Strength, Incoordination,Limited Range of Motion,Pain,Poor Balance, Poor Safety Awareness Comments Gait Comments Pt ambulated with left side lean and flexed trunk, shuffling feet, and cues needed for steering walker. Stair Climbing Assessment Comments Stair Climbing Comments unable to assess due to decreased strength: has 2 deep steps with no HRs + 1 to enter home and high bed at home to get into. PT-Balance Assessment Sitting Balance and Reactions Static Sitting Balance Ability Fair Dynamic Sitting Balance Ability Fair Standing Balance and Reactions Static Standing Balance Ability Fair Dynamic Standing Balance Ability Fair Device Used FWW M5 PT-IP Objective Assessments Start: 08/12/22 11:19 Freq: NEEDED Status: Active Protocol: Document 08/12/22 09:00 [facility] (Rec: 08/12/22 11:41 [facility] [id number]) Orientation Orientation/Cognition Level of Alertness Alert Language Function Ability No Deficits Noted Safety Awareness Understands Safety Issues Memory Description No Deficits Noted Strength Lower Extremity Strength Assessment Bilaterally Impaired Hip grossly 3+/5 BLEs M6 PT-IP Treatment Start: 08/12/22 11:19 Freq: NEEDED Status: Active Protocol: Document 08/15/22 15:51 [facility]Y (Rec: 08/15/22 16:19 LJ [id number]) Physical Therapy Treatment Exercises Exercises Ankle Pumps Education Education Provided Precautions,Safety M7 PT-IP Assessment and Plan Start: 08/12/22 11:19 Freq: NEEDED Status: Active Protocol: Document 08/15/22 15:51 [facility] (Rec: 08/15/22 16:19 [facility] [id number]) PT Summary Assessment and Plan Potential Rehabilitation Potential Good Status of Condition at Evaluation Evolving Summary Impairments Pain,ROM,Strength,Balance, Coordination,Bed Mobility, Transfers,Gait,Activity Tolerance Progress Towards Goals Slow Progress due to Pain,Slow Progress due to Activity Tolerance Assessment Summary Pt reqiring CGA-Luis F sit>stand , ModA sit-supine, and CGA sitting on side of bed without holding onto FWW for support. CGA and cues for FWW management with gait. Pt will need SNF to improve strength and functional mobility. Goals Bed Mobility Goal Standby Assistance Transfer Goal Standby Assistance Gait Goal Standby Assistance,Four Wheel Walker Gait Distance 150ft Other Goals up/down stairs 3 w/FWW w/SBA Days to Meet Goals 8 Frequency of Treatment Frequency Of Treatment Twice a Day Treatment Plan Other Recommendations and Next Treatment Progress bed mobility, Focus transfers, and gait as appropriate. 5x STS, balance activities if able. Precautions Lumbar Precautions Log Roll,No Twisting,Limit Bending,Lifting Restriction of 10 lbs,Gait Belt above Incisional Area Weight Bearing Status Weight Bearing Status Weight Bear as Tolerated Recommendations To Nursing Amount of Assist Needed 1 Person Assist Discharge Recommendations PT Discharge Recommendations SNF Rehab
[2022-08-15 19:20] VITALS: PULSE 76; RESP 16; O2SAT 100
[2022-08-15] MEDS: ALBUTEROL 2.5 MG/3 ML NEB (ADULT) INH (19:20)
[2022-08-15 20:00] VITALS: BP 124/75; PULSE 82; RESP 17; TEMP 37; O2SAT 99
[2022-08-15] MEDS: LITHIUM 300 MG IR CAPSULE 600 MG PO (20:36)
[2022-08-15] MEDS: SENNOSIDES 8.6 MG TABLET 17.2 MG PO (20:36)
[2022-08-15] MEDS: diazePAM 5 MG TABLET PO (20:37)
[2022-08-15] MEDS: OXYBUTYNIN 5 MG TABLET PO (20:38)
[2022-08-15] MEDS: TRAZODONE 100 MG TABLET PO (20:38)
[2022-08-16] MEDS: OXYCODONE IR 5 MG TABLET 10 MG PO ×2 (02:58→12:55)
[2022-08-16 03:09] VITALS: BP 130/71; PULSE 63; RESP 19; TEMP 36.4; O2SAT 99
[2022-08-16] MEDS: carisoprodoL 350 MG TABLET PO (03:43)
[2022-08-16] MEDS: ACETAMINOPHEN 325 MG TABLET 650 MG PO ×2 (05:26→11:24)
[2022-08-16] MEDS: LEVOTHYROXINE 100 MCG TABLET PO (05:27)
[2022-08-16] MEDS: HYDROMORPHONE 0.5 MG INJ IV ×2 (05:27→08:38)
[2022-08-16] MEDS: BUDESONIDE 0.5 MG/2 ML NEB INH (07:52)
[2022-08-16 07:56] VITALS: O2SAT 98
[2022-08-16] MEDS: GABAPENTIN 400 MG CAPSULE 1200 MG PO (08:26)
[2022-08-16] MEDS: hydrOXYzine pamoate 25 MG CAPSULE PO (08:26)
[2022-08-16] MEDS: OXYCODONE ER 10 MG TAB PO (08:27)
[2022-08-16] MEDS: DOCUSATE 100 MG CAPSULE PO (08:28)
[2022-08-16] MEDS: estradioL 1 MG TABLET PO (08:28)
[2022-08-16] MEDS: LITHIUM 300 MG IR CAPSULE PO (08:28)
[2022-08-16] MEDS: ARIPiprazole 10 MG TABLET PO (08:28)
[2022-08-16] MEDS: FLUTICASONE 120 SPRAY/16 GM SPRAY.SUSP NASAL (08:35)
[2022-08-16] MEDS: METHYLPHENIDATE 5 MG TABLET 20 MG PO (08:36)
[2022-08-16] MEDS: SODIUM CHLORIDE 0.9% FLUSH 10 ML IV (08:37)
--- NOTE | 2022-08-16 09:36 | CM.DPC ---
Addendum entered by Nani Aponte R.N. 08/16/22 11:49: Patient is discharging home with [facility], patient had the [facility] brochure in her hand. Called Hayley at [facility], she does not yet have the referral. Gave her the patient's name, and let her know that this [place] Blanket Cutting Machine Operator will fax over the referral. Will fax face sheet, orders, face to face, H&P, DC Summary, P.T. notes. Let her know that patient has [employer] P[employer]. Addendum entered by Nani Aponte R.N. 08/16/22 10:28: Met with patient in her room, she was sitting up in her chair. Let her know that this [place] Blanket Cutting Machine Operator has not been able to get in touch with [facility] today, and that [facility] is not sure about her insurance. Mentioned the possibility of home health, patient is willing to do so. She has had [facility] before, is willing to go with them. Updated nurse, Annalise, pain still is the issue. Will speak to BROOKE Sanchez, about plan, and see if she is medically ready for discharge today. Original Note: DCP Cont: Attempted to get in touch with [facility], spoke to audit machine operator, Charleen, she does not know who is in admissions today. She will reach out to the nurse and find out. this patient was here since the , hopefully they were able to get insurance auth by now. Called [facility] correction, spoke to Damien in admissions, is not sure about the insurance since Carla is out for the weekend. He will speak to his Medicare nurse who is in the building tomorrow, and can let this [place] Blanket Cutting Machine Operator know. P: DCP to continue to follow. Will see if home is a possibility, if no skilled facilities can be secured this weekend. Otherwise, she will need to be here over the weekend. Nani Aponte RN/Travel Pt
[2022-08-16 10:25] VITALS: BP 126/68; PULSE 60; RESP 17; TEMP 36.6; O2SAT 98
--- NOTE | 2022-08-16 11:07 | P.DS_ITS ---
History of Present Illness History of Present Illness Date Patient Seen: 08/16/22 Time Patient Seen: 11:07 Chief complaint: TLIF Narrative: Patient is complaining of moderate low back pain this morning, currently well controlled with her medications. She is complaining of left greater than right leg numbness and tingling. She is worked with physical therapy and occupational therapy, overall she is feeling well like to be discharged home today. Discharge Providers Provider Date of admission: 08/11/22 09:27 Discharge Date: 08/16/22 Primary care physician: Cesar Mackenzie MD Consults: 08/11/22 17:10 Consult to Occupational Therapy Evaluate & Treat Comment: Physician Instructions: Evaluate and treat Consult to Physical Therapy Evaluate & Treat Comment: Physician Instructions: Evaluate and Treat Discharge provider: Laura Medina PA-C Summary Hospital Course Discharge Diagnosis: 1. L2-3, L3-4, L4-5 spondylisthesis 2. L2-3, L3-4, L4-5 L5-S1 spinal stenosis 3. Chronic pain management, H/0 fibromyalgia 3. Bipolar disorder Hospital Course: Operative Date/Time/Diagnoses Date of procedure: 08/11/22 Time of procedure: 11:30 Procedure & Clinicians Procedure: 1. L2-3 L3-4 L4-5 Postero-lateral and posterior interbody fusion 2. L2-3 L3-4 L4-5 interbody cage placement. 3. L2-3 L3-4 L4-5 decompressive laminectomy with bilateral facetecomies 4. L2-3 L3-4 L4-5, L5-S1 Posterior segmental instrumentation 5. L5-S1 posterior non-segmental hardware removal 6. L5-S1 exploration of fusion with right hemilaminectomy 7. L5-S1 posterolateral fusion 8. [place] of bone marrow from iliac crest 9. Utilization of microsurgical technique and operating microscope 10. Utilization of robotic assisted navigation Same procedure as scheduled: Yes Indications: Patient has been having chronic back pain and worsening lumbar radiculopathy and symptoms of neurogenic claudication. Patient failed multiple conservative management with worsening pain weakness and numbness in her lower extremity.? Patient has been having difficulty performing activity of daily living.? After discussing risks benefits of treatment options, patient elected proceed with surgery. Surgeon: Diana Denton Psychotherapist Counselor: Eleonora Maurice Click Yes if Unassisted: No Anesthesia Type: General Operative Notes Closure Type: primary Specimen(s): none sent Prosthetic devices, grafts, tissues, transplants, or devices: Globus CREO MIS screws, RIse cages Applied: catheter Estimated Blood Loss (mL): 500 Blood products transfused: none Status at Discharge Cognitive/behavioral status at discharge: at baseline, oriented Functional status at discharge: uses cane/walker Overall status at discharge: patient is progressing back to baseline Exam Vital Signs (past 8 hours): - 08/16/22 03:09 08/16/22 07:56 08/16/22 10:25 Temperature 97.5 F L 98 F Pulse Rate 63 60 Respiratory Rate 19 17 Blood Pressure 130/71 126/68 Pulse Oximetry 99 98 98 Oxygen Delivery Method Room Air Oxygen Flow Rate 0 Fraction of Inspired Oxygen 21 SaO2/FiO2 Ratio 476 Oxygen Delivery Method Room Air Oxygen Flow Rate 0 Narrative Exam Narrative: Pleasant 52-year-old female, resting comfortably in her chair, no acute distress. Lumbar dressing demonstrates dried bloody discharge on the right lateral incision. No surrounding erythema, induration, or christ pus. She does have a facial skin tear, likely associated with tape from anesthesia. Bilateral lower extremity: Motor functions are grossly intact, sensation is decreased bilaterally in all distributions, right worse than left. Bilateral calves are soft and nontender to palpation. Objective Labs 08/14/22 17:23 [facility] Medical History ADD (attention deficit disorder) Ankylosing spondylitis Anxiety Arthritis Asthma Bipolar disorder CKD (chronic kidney disease) Collapsed lung (~2009) Depression Edema Fibromyalgia Gastroparesis GERD (gastroesophageal reflux disease) Heartburn Hiatal hernia HTN (hypertension) Hypothyroid Jerky body movements Kidney stones Migraines Nutcracker esophagus Occipital bone fracture (06/17/19) Palpitations Spinal stenosis Spinal stenosis of lumbar region with radiculopathy Syncopal episodes Trauma (06/17/19) Surgical History History of bladder surgery History of History of ear surgery History of lumbar fusion (01/04/20) History of surgery History of surgery (~02/2020) Hx of cervical spinal arthrodesis Hx of cervical spinal arthrodesis Hx of cholecystectomy Hx of foot surgery Hx of lithotripsy Hx of shoulder surgery Hx of sinus surgery S/P complete hysterectomy Social History household members: spouse Smoking Status: Never smoker alcohol intake: current Discharge Assessment & Plan Assessment and Plan Assessment: -stable status post L2-3, L3-4, L4-5, L5-S1 TLIF with posterior instrumentation -Chronic pain management, H/0 fibromyalgia -Bipolar disorder Plan of Treatment: -mobilize with PT/OT. Weightbearing as tolerated with front wheel walker or cane. No bending, lifting, twisting x6 weeks -continue with multimodal pain management. The patient takes baseline oxycodone ER t.i.d. plus Dilaudid 4 mg for breakthrough pain as well as gabapentin and Soma. She notes she has [employer] available at home. Therefore I will not send any pain medications to her pharmacy at this time. Discontinued IV Dilaudid and change to 4 mg of Dilaudid p.o., as she takes this baseline. -discharge home with home health as SNF placement is not available and the patient is improving -continue to monitor dyskinesias in lower extremities -DC home once cleared by PT/OT and pain is manageable Discharge Plan Discharge Plan Patient Disposition: Home Health Service Transfer to: [facility] Discharge orders & Medications Prescriptions: Continued tizanidine 2 mg Tablet 2 mg PO Q8H PRN (Reason: Muscle Spasm) Nurtec ODT 75 mg Tablet,Disintegrating 75 mg PO Q OTHER DAY docusate sodium [DOK] 100 mg capsule 100 mg PO DAILY oxybutynin chloride 5 mg Tablet 5 mg PO BEDTIME aripiprazole [Abilify] 10 mg Tablet 10 mg PO DAILY carisoprodol 350 mg Tablet 350 mg PO DAILY PRN (Reason: Muscle spasms) albuterol sulfate 2.5 mg /3 mL (0.083 %) Solution For Nebulization 2.5 mg INHALATION Q4-6H PRN (Reason: Shortness Of Breath) methylphenidate HCl 20 mg Tablet 20 mg PO BID gabapentin 400 mg Capsule 1,200 mg PO TID triamcinolone acetonide 0.5 % Ointment 1 applic TOPICAL BID PRN (Reason: Rash on nose) estradiol 1 mg Tablet 1 mg PO DAILY trazodone 100 mg Tablet 100 - 200 mg PO BEDTIME meclizine 25 mg Tablet 25 mg PO TID PRN (Reason: Dizziness) lithium carbonate 300 mg Capsule 300 mg PO QAM nitroglycerin 0.4 mg Tablet, Sublingual 0.4 mg SUBLINGUAL Q5-15M PRN (Reason: Chest Pain) albuterol sulfate 90 mcg/actuation Hfa Aerosol Inhaler 1 - 2 inh INHALATION QID PRN (Reason: Shortness Of Breath) fluticasone propionate 50 mcg/actuation [place],Suspension 2 spray INTRANASAL DAILY diazepam 5 mg Tablet 5 mg PO BEDTIME Pulmicort Flexhaler 90 mcg/actuation Aerosol Powdr Breath Activated 2 inh INHALATION QAM diclofenac sodium 1 % Gel 2 g TOPICAL QID PRN (Reason: Pain) levothyroxine 175 mcg Capsule 175 mcg PO DAILY dronabinol [Marinol] 5 mg Capsule 5 mg PO BID PRN (Reason: Headaches) acetaminophen 325 mg Tablet 650 mg PO Q6HR PRN (Reason: Pain, Mild (1-3)) Qty: 40 0RF oxycodone 5 mg tablet 5 - 15 mg PO Q4H PRN (Reason: pain) Qty: 50 0RF lithium carbonate 300 mg Capsule 600 mg PO BEDTIME Qty: 15 0RF Discontinued ibuprofen 200 mg Tablet 600 mg PO TID PRN (Reason: Pain) Follow up/Referrals: Cesar Mackenzie MD [Primary Care Provider] - Diana Denton MD [Physician] - As previously scheduled Diet/Activity/Treatments Diet: Diet as Tolerated Activity: Up and walking as tolerated Other treatments: Dressing/Wound care: -Keep dressing in place until postoperative follow-up office visit. -Okay to shower. Keep wound out of direct water stream. Can use PressNSeal plastic wrap to protect from shower stream. No soaking or submerging until all the scabs fall off (approximately 6 weeks). -Please call the office if dressing becomes wet, soiled, or saturated. Activities: -Limit bending, lifting, twisting x6 weeks. No deep bending (more than 90 degrees) or twisting at the waist. No lifting > 20 pounds. -Walk frequently. -Weight-bearing as tolerated. Use front wheeled walker, and progress to cane when safe. -Continue with home exercises as directed by your physical therapist. -Ice your incision as needed for pain/inflammation/swelling. Protect your skin with a folded pillowcase. -Incentive Spirometer (breathing device from hospital): 5-10xs every hour while awake for the first 1-2 weeks. Follow-up: -Follow-up with your surgeon or PA in the office in 10-14 days after surgery. -Follow-up with your surgeon 6 weeks postoperatively. Call the office if you have chest pain, shortness of breath, significant swelling that will not resolve with elevating, fever over 101?, significantly worsening pain, or are concerned you might need to go to the Emergency Room. [facility]: [phone] Skin/Wound/Dressing Care Report to your healthcare provider any signs of infection, such as:: chills, fever, night sweats, unusual drainage and unusual redness Dressing: Keep dressing clean, dry, and intact until 2 week follow up visit. Visit Report/Discharge Packet Instructions: DI for Transforaminal Lumbar Interbody Fusion, DI for Prescription Opioid Use Stand Alone Forms: Patient Portal/API, Stroke Signs & Symptoms, Surgery Discharge Discharge Data Primary Care Provider: Cesar Mackenzie VTE Deep Vein Thrombosis/Pulmonary Embolism Present on Admission: No
[2022-08-16] MEDS: HYDROMORPHONE 4 MG TABLET PO (11:23)
[2022-08-16 12:15] LABS: Hematocrit 30.7 % (36-46); Hemoglobin 10.4 g/dL (12.0-16.0)
--- NOTE | 2022-08-16 12:19 | PT.IPTN ---
Current Diagnoses Spondylolisthesis, lumbar region (08/11/22) Spinal stenosis, lumbar region with neurogenic claudication (08/11/22) Surgery Performed Operation Date: 08/11/22 10:45 Actual Procedures p L2-3, L3-4, L4-5 TLIF, L2-S1 PSF w. posterior instrumentation- Robot(Not Applicable) - Diana Denton MD Physical Therapy Treatment Note M2 PT-IP Current Condition Start: 08/12/22 11:19 Freq: NEEDED Status: Active Protocol: Document 08/14/22 15:08 SP (Rec: 08/14/22 17:01 SP [id number]) Physical Therapy Current Condition Current Condition Evaluation Date 08/12/22 Treatment Diagnosis L2-3, 3-4, 4-5 post fusion M3 PT-IP Subjective Start: 08/12/22 11:19 Freq: NEEDED Status: Active Protocol: Document 08/16/22 12:02 LJ (Rec: 08/16/22 12:19 LJ [id number]) Subjective Physical Therapy Visit Type Type Treatment Note Visit Start Time 09:51 Visit Stop Time 10:24 Total Visit Minutes 33 Physical Therapy Visit Comments Patient Comments Pt willing work with therapy. Patient Goals Go home today Therapy Pain Assessment Pain When Pain Assessed During Mobility Pain Present Pain Present Pain Reported Location Left Hip Intensity 4 Scale Used Numeric (0 - 10) Description Aching,Burning Pain Management Techniques Distraction,Elevation, Modification of Treatment,Re- positioning,Timing of Activity with Medications M4 PT-IP Mobility and Gait Start: 08/12/22 11:19 Freq: NEEDED Status: Active Protocol: Document 08/16/22 12:02 LJ (Rec: 08/16/22 12:19 LJ [id number]) PT-Transfer Assessment Sit to and From Stand Sit to and from Stand Standby Assistance,Contact Guard Assistance,1 Person Assistance,Use of Upper Extremities Equipment Transfer Assistive Device Gait Belt,Front Wheeled Walker Transfers Transfer Destination Chair,Wheelchair Transfer Technique pt ambulated with FWW and 4WW Transfer Ability Level of Assist Standby Assistance,Contact Guard Assistance,1 Person Assistance,Use of Upper Extremities Comments Mobility Comments Pt reclining in chair. More alert and states she is ready to go home. Assisted with putting chair upright then pt stood using UEs to push off chair to standing CGA first time then able to SBA sit<> stand WC x2, chair again. Ambulated in room to hallway with FWW~40'. WC to stairs and back to room. Pt completed stairs and ambulation with 4WW. See gait section and stairs section. Gait Assessment Gait Gait Assistance Required: Standby Assistance,Contact Guard Assist,1 Person Assist Distance (Feet) 140 Assistive Devices Assistive Device Gait Belt,Front Wheeled Walker ,4 Wheeled Walker Gait Deviations General Gait Pattern Antalgic,Decreased Stride Length,Decreased Feet Clearance,Lateral Trunk Lean, Narrow Based Gait,Step-to Gait Factors Limiting Gait Function Factors Limiting Gait Function Abnormal Tonal Influences, Decreased Activity Tolerance, Decreased Strength, Incoordination,Limited Range of Motion,Pain,Poor Balance, Poor Safety Awareness Comments Gait Comments Pt ambulated with FWW then trialed 4WW. Stated she has 4WW at home and feels more steady and safer with that. Ambulated in pulido ~40' with FWW and ~100' with 4WW. She has less of a lateral lean and head in more of neutral position with slight left lean . Ambulated slowly but more steady with less assist. Stair Climbing Assessment Evaluation Level of Assist On Stairs Contact Guard Assistance, Minimal Assistance Devices Stair Climbing Assistive Devices Straight Cane Technique/Endurance Stair Climbing Direction Ascend and Descend Stair Climbing Technique Step to Step Number of Steps Climbed 3 Stair Climbing Set # Repetitions (reps) 1 Comments Stair Climbing Comments Pt completed stairs using SPC and CGA ascending. Luis F required descending to prevent LOB. Will train to assist pt during CGT PT-Balance Assessment Sitting Balance and Reactions Static Sitting Balance Ability Fair Dynamic Sitting Balance Ability Fair Standing Balance and Reactions Static Standing Balance Ability Fair Dynamic Standing Balance Ability Fair Device Used FWW, 4WW M5 PT-IP Objective Assessments Start: 08/12/22 11:19 Freq: NEEDED Status: Active Protocol: Document 08/12/22 09:00 [facility] (Rec: 08/12/22 11:41 [facility] [id number]) Orientation Orientation/Cognition Level of Alertness Alert Language Function Ability No Deficits Noted Safety Awareness Understands Safety Issues Memory Description No Deficits Noted Strength Lower Extremity Strength Assessment Bilaterally Impaired Hip grossly 3+/5 BLEs M6 PT-IP Treatment Start: 08/12/22 11:19 Freq: NEEDED Status: Active Protocol: Document 08/16/22 12:02 LJ (Rec: 08/16/22 12:19 EDY [id number]) Physical Therapy Treatment Education Education Provided Precautions,Safety M7 PT-IP Assessment and Plan Start: 08/12/22 11:19 Freq: NEEDED Status: Active Protocol: Document 08/16/22 12:02 EDY (Rec: 08/16/22 12:19 EDY [id number]) PT Summary Assessment and Plan Potential Rehabilitation Potential Good Status of Condition at Evaluation Evolving Summary Impairments Pain,ROM,Strength,Balance, Coordination,Bed Mobility, Transfers,Gait,Activity Tolerance Progress Towards Goals Progressing Toward Goals,Safe For Discharge Assessment Summary Pt requiring CGA-SBA for transfers and gait with 4WW. Will conduct CGT with at 1:00. Pt safe to DC home with assist Goals Bed Mobility Goal Standby Assistance Transfer Goal Standby Assistance Gait Goal Standby Assistance,Four Wheel Walker Gait Distance 150ft Other Goals up/down stairs 3 w/FWW w/SBA Days to Meet Goals 8 Frequency of Treatment Frequency Of Treatment Twice a Day Treatment Plan Other Recommendations and Next Treatment Progress bed mobilty, Focus transfers, and gait as appropriate. 5x STS, balance activities if able. Precautions Lumbar Precautions Log Roll,No Twisting,Limit Bending,Lifting Restriction of 10 lbs,Gait Belt above Incisional Area Weight Bearing Status Weight Bearing Status Weight Bear as Tolerated Recommendations To Nursing Amount of Assist Needed 1 Person Assist
--- NOTE | 2022-08-16 12:37 | PC.NURSE ---
I gave her dilaudid PO earlier and I asked if it's helping her pain. Patient reports she is okay going home and she can manage. brook[employer] did work for her.
[2022-08-16] MEDS: RIMEGEPANT 75 MG 75 EACH PO (12:59)
--- NOTE | 2022-08-16 13:59 | PT.IPTN ---
Current Diagnoses Spondylolisthesis, lumbar region (08/11/22) Spinal stenosis, lumbar region with neurogenic claudication (08/11/22) Surgery Performed Operation Date: 08/11/22 10:45 Actual Procedures p L2-3, L3-4, L4-5 TLIF, L2-S1 PSF w. posterior instrumentation- Robot(Not Applicable) - Diana Denton MD Physical Therapy Treatment Note M2 PT-IP Current Condition Start: 08/12/22 11:19 Freq: NEEDED Status: Active Protocol: Document 08/14/22 15:08 SP (Rec: 08/14/22 17:01 SP [id number]) Physical Therapy Current Condition Current Condition Evaluation Date 08/12/22 Treatment Diagnosis L2-3, 3-4, 4-5 post fusion M3 PT-IP Subjective Start: 08/12/22 11:19 Freq: NEEDED Status: Active Protocol: Document 08/16/22 13:50 LJ (Rec: 08/16/22 13:59 LJ [id number]) Subjective Physical Therapy Visit Type Type Treatment Note Visit Start Time 13:01 Visit Stop Time 13:26 Total Visit Minutes 25 Notes CGT with Physical Therapy Visit Comments Patient Comments Pt willing work with therapy. Patient Goals Go home today Therapy Pain Assessment Pain When Pain Assessed During Mobility Pain Present Pain Present Pain Reported M4 PT-IP Mobility and Gait Start: 08/12/22 11:19 Freq: NEEDED Status: Active Protocol: Document 08/16/22 13:50 LJ (Rec: 08/16/22 13:59 LJ [id number]) PT-Transfer Assessment Sit to and From Stand Sit to and from Stand Standby Assistance,1 Person Assistance,Use of Upper Extremities Equipment Transfer Assistive Device Gait Belt,Front Wheeled Walker Transfers Transfer Destination Chair,Wheelchair Transfer Technique pt ambulated with FWW Transfer Ability Level of Assist Standby Assistance,1 Person Assistance,Use of Upper Extremities Comments Mobility Comments Pts assisting pt this treatment session. Pt SBA for transfer to/from chair and WC. Wheeled to stairs for to assist. states there is a right hand rail on the stairs so pt used right rail to ascedn and descend stairs with beside her CGA. Pt had no difficulty with descent this time. No LOB . Pt then ambulated ~150 back toward room then sat in WC to be wheeled the rest of the way . demonstrated awareness of precautions and assisted her appropriately. She is safe to DC home with assist today. Gait Assessment Gait Gait Assistance Required: Standby Assistance,Contact Guard Assist,1 Person Assist Distance (Feet) 150 Assistive Devices Assistive Device Gait Belt,Front Wheeled Walker Gait Deviations General Gait Pattern Antalgic,Decreased Stride Length,Decreased Feet Clearance,Lateral Trunk Lean, Narrow Based Gait,Step-to Gait Factors Limiting Gait Function Factors Limiting Gait Function Abnormal Tonal Influences, Decreased Activity Tolerance, Decreased Strength, Incoordination,Limited Range of Motion,Pain,Poor Balance, Poor Safety Awareness Comments Gait Comments see mobility section Stair Climbing Assessment Evaluation Level of Assist On Stairs Contact Guard Assistance Devices Stair Climbing Assistive Devices Right Railing Technique/Endurance Stair Climbing Direction Ascend and Descend Stair Climbing Technique Step to Step Number of Steps Climbed 3 Stair Climbing Set # Repetitions (reps) 1 Comments Stair Climbing Comments see mobility section PT-Balance Assessment Sitting Balance and Reactions Static Sitting Balance Ability Fair Dynamic Sitting Balance Ability Fair Standing Balance and Reactions Static Standing Balance Ability Fair Dynamic Standing Balance Ability Fair Device Used FWW M5 PT-IP Objective Assessments Start: 08/12/22 11:19 Freq: NEEDED Status: Active Protocol: Document 08/12/22 09:00 [facility] (Rec: 08/12/22 11:41 [facility] [id number]) Orientation Orientation/Cognition Level of Alertness Alert Language Function Ability No Deficits Noted Safety Awareness Understands Safety Issues Memory Description No Deficits Noted Strength Lower Extremity Strength Assessment Bilaterally Impaired Hip grossly 3+/5 BLEs M6 PT-IP Treatment Start: 08/12/22 11:19 Freq: NEEDED Status: Active Protocol: Document 08/16/22 13:50 LJ (Rec: 08/16/22 13:59 [id number]) Physical Therapy Treatment Education Education Provided Precautions,Safety M7 PT-IP Assessment and Plan Start: 08/12/22 11:19 Freq: NEEDED Status: Active Protocol: Document 08/16/22 13:50 LJ (Rec: 08/16/22 13:59 [id number]) PT Summary Assessment and Plan Potential Rehabilitation Potential Good Status of Condition at Evaluation Evolving Summary Impairments Pain,ROM,Strength,Balance, Coordination,Bed Mobility, Transfers,Gait,Activity Tolerance Progress Towards Goals Progressing Toward Goals,Safe For Discharge Assessment Summary Pt worked with . Required SBA to CGA with mobility, gait, and stairs. They have all needed equipment at home and pt is safe for DC with assist today. Goals Bed Mobility Goal Standby Assistance Transfer Goal Standby Assistance Gait Goal Standby Assistance,Four Wheel Walker Gait Distance 150ft Other Goals up/down stairs 3 w/FWW w/SBA Days to Meet Goals 8 Frequency of Treatment Frequency Of Treatment Twice a Day Treatment Plan Other Recommendations and Next Treatment Progress bed mobility, Focus transfers, and gait as appropriate. 5x STS, balance activities if able. Precautions Lumbar Precautions Log Roll,No Twisting,Limit Bending,Lifting Restriction of 10 lbs,Gait Belt above Incisional Area Weight Bearing Status Weight Bearing Status Weight Bear as Tolerated Recommendations To Nursing Amount of Assist Needed 1 Person Assist
== END 2022-08-16 14:03 | disposition home health service (06) | DRG 454 ==
PROVIDERS: Physician Assistant; Physician Assistant Medical; Admitting Provider Orthopaedic Surgery Orthopaedic Surgery of the Spine; PCP Family Medicine; Referring Provider Orthopaedic Surgery Orthopaedic Surgery of the Spine; Visit Provider Orthopaedic Surgery Orthopaedic Surgery of the Spine
PROC: 0SG10AJ Fusion of 2 or more Lumbar Vertebral Joints with Interbody Fusion Device, Posterior Approach, Anterior Column, Open Approach (ICD-10-PCS; principal; 2022-08-11 10:45)
DX: M48.061 Spinal stenosis, lumbar region without neurogenic claudication (principal); T84.296A Other mechanical complication of internal fixation device of vertebrae, initial encounter; M43.16 Spondylolisthesis, lumbar region; M48.07 Spinal stenosis, lumbosacral region; M54.16 Radiculopathy, lumbar region; Y83.8 Other surgical procedures as the cause of abnormal reaction of the patient, or of later complication, without mention of misadventure at the time of the procedure; J45.909 Unspecified asthma, uncomplicated; K21.9 Gastro-esophageal reflux disease without esophagitis; E03.9 Hypothyroidism, unspecified; G89.29 Other chronic pain; G43.909 Migraine, unspecified, not intractable, without status migrainosus; S00.81XA Abrasion of other part of head, initial encounter; X58.XXXA Exposure to other specified factors, initial encounter; Y92.239 Unspecified place in hospital as the place of occurrence of the external cause; M79.7 Fibromyalgia; F32.A Depression, unspecified; Z20.822 Contact with and (suspected) exposure to COVID-19; Z79.899 Other long term (current) drug therapy; Z88.1 Allergy status to other antibiotic agents; Z88.0 Allergy status to penicillin; Z88.2 Allergy status to sulfonamides; Z88.8 Allergy status to other drugs, medicaments and biological substances; Z83.2 Family history of diseases of the blood and blood-forming organs and certain disorders involving the immune mechanism; Z98.1 Arthrodesis status
CPT/HCPCS: 36415; 72100; 76000; 82962; 85014; 85018; 87635; 94640; 97116; 97162; 97166; 97530; 97535; C9803; C1713; C9290; J0330; J0690; J1100; J1170; J2250; J2405; J2704; J3010; J7613

== ENCOUNTER 2022-10-13 06:32 | Day surgery (SDC) | payer OTHER, SELFPAY ==
[2022-08-11 09:35] VITALS: BMI 26.6
[2022-10-10 11:36] VITALS: BMI 26.6
[2022-10-13] VITALS (14 sets, daily range): BP systolic 115–153; BP diastolic 68–92; PULSE 16–84; RESP 12–18; TEMP 36.1–37.1; O2SAT 96–99; BMI 26.6
[2022-10-13] MEDS: LACTATED RINGERS 1,000 ML 84 ML IV (07:27)
--- NOTE | 2022-10-13 07:45 | PM.PREOP ---
Pre-operative Note COVID-19 Criteria for continued procedure: Expected advancement of disease process, Possibility delay results in more complex future surgery or treatment, Increased loss of function, Continuing or worsening of significant or severe pain, Deterioration of the patient's condition or overall health and Delay expected to result in less-positive ultimate med/surg outcome Interval Note History & Physical reviewed/Exam performed by Physician: Yes Changes to H&P: No
[2022-10-13] MEDS: CEFAZOLIN 2 GM/100 ML PREMIX 100 ML IV (08:10)
[2022-10-13] MEDS: BUPIVACAINE 0.25% (PF) VIAL 30 ML INJ (08:18)
--- NOTE | 2022-10-13 08:32 | P.OP_ITS ---
Operative Date/Time/Diagnoses Date of procedure: 10/13/22 Time of procedure: 07:40 Pre-op diagnosis: 1. Lumbar wound dehiscience Post-op diagnosis: same Procedure & Clinicians Procedure: 1. Lumbar wound irrigation and debridement of skin and subcutaneous tissue 20 cm or less Same procedure as scheduled: Yes Indications: Ms. Aguilar is more than 6 weeks post lumbar fusion surgery. Patient has a small lumbar wound on the left side with serous drainage. AFter discussing risks and benefits of treatment options, patient was scheduled for lumbar wound I&D and closure. Surgeon: Diana Denton Click Yes if Unassisted: Yes Anesthesia Type: General Operative Notes Closure Type: primary Specimen(s): other (Lumbar wound culture) Estimated Blood Loss (mL): 1 Blood products transfused: none Procedure in detail: Patient was seen in the preoperative area. Risks and benefits of the surgery was discussed with the patient. Informed consent was obtained from the patient and placed in the chart. Surgical site was marked. Patient was taken to the operative room. General anesthesia was administered. Prophylactic antibiotic was given to the patient less than 30 min before the incision was made. Patient was placed into a prone position on the Triston table. Patient's back was then prepped and draped in the sterile fashion. Time-out was performed at this time. Patient's left-sided incision was inspected. There is a 5 mm long wound on the caudal aspect of the incision on the left. There is minimal drainage. There is exposed granulation tissue. There is no cellulitis. There is no induration or fluctuance on palpation. The wound was then extended cephalad by another 15 mm in order to expose the full extent of the involvement. Wound culture was taken at this time. The wound was inspected again. The dehiscence was found to be isolated to the subcutaneous layer. The deep fascial layer is intact with no exposed hardware. At this time using a 10 blade as well as a Perrin, unhealthy appearing tissue mostly along the skin edges was excised including skin subcutaneous tissue and muscle fascia. After excision all debridement was completed the wound was irrigated copiously with sterile normal saline. After the irrigation and debridement was completed the wound was then re-examined. Healthy-appearing tissue was visible on all surfaces of the wound. 2-0 Vicryl suture was used to close the subcutaneous tissue. 2-0 Nylon suture was used to close the wound in vertical mattress fashion in in terrupted fashion. Hawthorne then was placed between the nylon vertical mattress sutures. The wound was closed without any difficulty and without added stress the skin. At this time a sterile dressing was applied the patient's wound/incision. Patient was then woken up from anesthesia and transferred recovery room stable condition. There were no complications. Patient will be discharged home today. Complications: none Post-operative Condition: stable Disposition: PACU Plan for aftercare: Discharge to home
[2022-10-13] MEDS: HYDROMORPHONE 2 MG INJ IV ×4 (08:46→09:15)
[2022-10-13] MEDS: OXYCODONE/ACETAMINOPHEN 5/325 TABLET 1 TAB PO ×2 (08:47→09:33)
== END 2022-10-13 10:22 | disposition home or self-care (01) ==
PROVIDERS: PCP Family Medicine; Referring Provider Orthopaedic Surgery Orthopaedic Surgery of the Spine; Visit Provider Orthopaedic Surgery Orthopaedic Surgery of the Spine
PROC: (CPT 10180; principal; 2022-10-13 07:45)
DX: T81.32XA Disruption of internal operation (surgical) wound, not elsewhere classified, initial encounter (principal); Z98.1 Arthrodesis status
CPT/HCPCS: 11042; 87070; 87075; 87205; J0330; J0690; J1100; J1170; J2250; J2405; J2704; J3010